=== PATIENT | male | born 1945 | race Caucasian/White ===

== ENCOUNTER 2017-07-18 17:33 | Emergency (ER) | payer MEDICARE, OTHER ==
[~2017-07-18] VITALS: Ht 175.3 cm; Wt 115.7 kg
--- OUTSIDE RECORDS SUMMARY | ~2017-07-18 | XMS | Encounter Summary ---
Demographics + + + | Address | [address] | | | [place] [address] | + + + | Home Phone | | + + + | Preferred Language | Unknown | + + + | Marital Status | | + + + | Alevism Affiliation | Unknown | + + + | Race | Unknown | + + + | Ethnic Group | Unknown | + + + Author + + + | Author | [facility] | | | and [place] | + + + | Organization | [facility] | | | and [place] | + + + | Address | Unknown | + + + | Phone | Unavailable | + + + Support + + +---------+ + | Name | Relationship | Address | Phone | + + +---------+ + | Donnell Taylor ECON | Unknown | | + + +---------+ + Care Team Providers + +------+ + | Care Axle Bearing Polisher Name | Role | Phone | + +------+ + PCP | Unavailable | + +------+ + Encounter Details +--------+ + + + + | Date | Type | Department | Care Team | Description | +--------+ + + + + | 04/23/ | Orders Only | [facility] | Osvaldo Jon, | Displacement of | | 2017 | | NEUROSURGERY [address] | DO [address] | lumbar | | | | [address] | [address] [place], | intervertebral disc | | | | [place] | [place] [address] | without myelopathy | | | | [address] | [phone] | (Primary Dx); Other | | | | [phone] | | idiopathic | | | | | | scoliosis, lumbar | | | | | | region; Lumbar | | | | | | spondylosis; | | | | | | Neurogenic | | | | | | claudication; Lumbar | | | | | | radiculopathy; | | | | | | Acute back pain with | | | | | | sciatica, left; | | | | | | Left leg weakness | +--------+ + + + + Social History + + + +--------+ + | Tobacco Use | Types | Packs/Day | Years | Date | | | | | Used | | + + + +--------+ + | Former Smoker | Cigarettes, Pipe | 1 | 25 | Quit: 03/31/1995 | + + + +--------+ + + +---+---+---+ | Smokeless Tobacco: | | | | | Never Used | | | | + +---+---+---+ + + +---------+ + | Alcohol Use | Drinks/We | oz/Week | Comments | | | ek | | | + + +---------+ + | Yes | | | Social | + + +---------+ + + + + | Sex Assigned at | Date Recorded | | | | + + + | Not on file | | + + + as of this encounter Plan of Treatment +--------+---------+ + + + | Date | Type | Specialty | Care Team | Description | +--------+---------+ + + + | 09/17/ | Office | Neurosurgery | Osvaldo Jon, | | | 2017 | Visit | | DO [address] | | | | | | [address] [place], | | | | | | [place] [address] | | | | | | [phone] | | | | | | | | +--------+---------+ + + + as of this encounter Visit Diagnoses + + | Diagnosis | + + | Displacement of lumbar intervertebral disc without myelopathy - Primary | + + | Other idiopathic scoliosis, lumbar region | + + | Lumbar spondylosis | + + | Lumbosacral spondylosis without myelopathy | + + | Neurogenic claudication | + + | Spinal stenosis, lumbar region, with neurogenic claudication | + + | Lumbar radiculopathy | + + | Thoracic or lumbosacral neuritis or radiculitis, unspecified | + + | Acute back pain with sciatica, left | + + | Left leg weakness | + + | Other musculoskeletal symptoms referable to limbs | + +"
--- OUTSIDE RECORDS SUMMARY | ~2017-07-18 | XMS | Encounter Summary ---
Demographics + + + | Address | [address] | | | [place] [address] | + + + | Home Phone | | + + + | Preferred Language | Unknown | + + + | Marital Status | | + + + | Baptism Affiliation | Unknown | + + + | Race | Unknown | + + + | Ethnic Group | Unknown | + + + Author + + + | Author | [facility] | | | and [place] | + + + | Organization | [facility] | | | and [place] | [...] Team Providers + +------+ + | Care State Superintendent Of Schools Name | Role | Phone | + +------+ + PCP | Unavailable | + +------+ + Encounter Details +--------+ + + + + | Date | Type | Department | Care Team | Description | +--------+ + + + + | 05/01/ | Episode | [facility] [place] | Anya Muro, | | | 2018 | Changes | NEUROSURGERY [address] | Cert NAT | | | | | [address] | | | | | | [place] | | | | | | [address] | | | | | | [phone] | | | +--------+ + + + + Social [...] | | | | [address] [place], | | | | | | [place] [address] | | | | | | [phone] | | | | | | | | +--------+---------+ + + + as of this encounter Visit Diagnoses Not on filein this encounter"
--- OUTSIDE RECORDS SUMMARY | ~2017-07-18 | XMS | Encounter Summary ---
Demographics + + + | Address | [address] | | | [place] [address] | + + + | Home Phone | | + + + | Preferred Language | Unknown | + + + | Marital Status | | + + + | Latter Day Affiliation | Unknown | + + + | Race | Unknown | + + + | Ethnic Group | Unknown | + + + Author + + + | Author | [facility] | | | and [place] | + + + | Organization | [facility] | | | and [place] [...] Team Providers + +------+ + | Care Health Center Assistant Name | Role | Phone | + +------+ + | Austin Handy DO | PCP | | + +------+ + Reason for Visit Auth/Cert +--------+--------+ + + + + | Status | Reason | Specialty | Diagnoses / | Referred By | Referred To | | | | | Procedures | Contact | Contact | +--------+--------+ + + + + | | | | Diagnoses | | | | | | | | | | | | | | Displacement | | | | | | | of lumbar | | | | | | | intervertebr | | | | | | | al disc | | | | | | | without | | | | | | | myelopathy | | | | | | | (M51.26), | | | | | | | Other | | | | | | | idiopathic | | | | | | | scoliosis, | | | | | | | lumbar | | | | | | | region | | | | | | | (M41.26), | | | | | | | Lumbar | | | | | | | spondylosis | | | | | | | (M47.816), | | | | | | | Neurogenic | | | | | | | claudication | | | | | | | (M48.062), | | | | | | | Lumbar | | | | | | | radiculopath | | | | | | | y (M54.16), | | | | | | | Acute back | | | | | | | pain with | | | | | | | sciatica, | | | | | | | left | | | | | | | (M54.42), | | | | | | | Left leg | | | | | | | weakness | | | | | | | (R29.898) | | | | | | | Procedures | | | | | | | MS | | | | | | | ARTHRODESIS | | | | | | | POSTERIOR/PO | | | | | | | STEROLATERAL | | | | | | | LUMBAR MS | | | | | | | LUMBAR SPINE | | | | | | | | | | | | | | FUSION,ANTER | | | | | | | APPRCH MS | | | | | | | INSJ BIOMCHN | | | | | | | DEV | | | | | | | INTERVERTEBR | | | | | | | AL DSC SPC | | | | | | | W/ARTHRD | | | | | | | POSTERIOR | | | | | | | NON-SEGMENTA | | | | | | | L | | | | | | | INSTRUMENTAT | | | | | | | ION MS | | | | | | | STEREOTACTIC | | | | | | | COMP ASSIST | | | | | | | PROC,SPINAL | | | | | | | L2-3 LAIF | | | +--------+--------+ + + + + Encounter Details +--------+ + + + + | Date | Type | Department | Care Team | Description | +--------+ + + + + | 06/11/ | Anesthesia | [facility] | Lashawn, | | | 2018 | Event | MED CTR [facility] | Ad Mac MD | | | | | [address] | [address] | | | | | [place] | [place] | | | | | [address] | [id number] | | | | | [phone] | | | +--------+ + + + + Anesthesia Record + + + + + | Procedure Name | Responsible | Anesthesia Start | Anesthesia Stop Time | | | Anesthesiologist | Time | | + + + + + | L2-3 JARROD (Right | Joseluisalex L | 06/11/17 1211 | 06/11/17 1500 | | Back) | MD Lashawn | | | + + + + + +----+---+ + + | Da | T | Event | Comment | | te | i | | | | | m | | | | | e | | | +----+---+ + + | 03 | 1 | An Checkout | Pre-use anesthesia machine/equipment checkout. | | /1 | 2 | | | | 4/ | 1 | | | | 20 | 0 | | | | 18 | | | | +----+---+ + + | | 1 | An Start | Reassessment prior to anesthesia induction/procedure. | | | 2 | | | | | 1 | | | | | 1 | | | +----+---+ + + | | 1 | Preoxygenat | | | | 2 | ed | | | | 1 | | | | | 4 | | | +----+---+ + + | | 1 | An | | | | 2 | Induction | | | | 1 | | | | | 6 | | | +----+---+ + + | | 1 | An | | | | 2 | Intubation | | | | 1 | | | | | 7 | | | +----+---+ + + | | 1 | AN Bite | | | | 2 | Block | | | | 2 | | | | | 1 | | | +----+---+ + + | | 1 | Antibiotic | | | | 2 | Given | | | | 2 | | | | | 6 | | | +----+---+ + + | | 1 | First | | | | 2 | Inc/Proc St | | | | 3 | | | | | 7 | | | +----+---+ + + | | 1 | Quick Note | Extensive time working on increasing patient sats. Recruitment | | | 4 | | breaths given, good strength | | | 4 | | | | | 0 | | | +----+---+ + + | | 1 | An Stop | Patient handed off to recovery nurse. | | | 0 | | | | | 0 | | | +----+---+ + + +------+ | Meds | +------+ + + + | Name | Total | + + + | fentaNYL | 100 mcg | + + + | lidocaine 2% (PF) | 40 mg | + + + | propofol | 300 mg | + + + | propofol | 498.56 mg | + + + | succinylcholine | 120 mg | + + + | rocuronium | 20 mg | + + + | ketamine | 150 mg | + + + | phenylephrine (Injection) | 100 mcg | + + + | ePHEDrine | 25 mg | + + + | dexamethasone | 10 mg | + + + | ondansetron | 4 mg | + + + | dexmedetomidine (Bolus) | 25 mcg | + + + | HYDROmorphone | 1.4 mg | + + + | magnesium sulfate | 2 g | + + + | lidocaine 1% | 20 mL | + + + | glycopyrrolate (ROBINUL) | 0.8 mg | | injection (5 mL vial) | | + + + | neostigmine | 3 mg | + + + | sodium chloride 0.9% (NS) | 1,000 mL | | infusion | | + + + | LR (Infusion) | 400 mL | + + + + + | Name | + + | N2O Flow Rate (L/Min) | + + | O2 Flow Rate (L/Min) | + + | Insp O2 | + + | Exp SEV | + + | Air Flow Rate (L/Min) | + + + + | No blood administrations on file. | + + +--------+ + + + | Type | Details | Placement | Removal | +--------+ + + + | Periph | 06/11/17; 1057; Left; Distal; | 06/11/17 1057 by | 06/13/17 1104 by | | eral | Forearm; mxnm-cur-iyyckz catheter | Krystal Brandt RN | Rafaela Regan RN | | IV | system; 18 gauge; Blood Bank; | | | | | distraction, intradermal | | | | | injection; short term use; | | | | | 06/13/17; 1104 | | | +--------+ + + + | Airway | Placement Date: 06/11/17; | 06/11/17 1215 by | 06/11/17 1440 by | | | Placement Time: 1215 (created via | Ad Mac | Gayle Zavala RN | | | procedure documentation); Mask | MD Lashawn | | | | Ventilation: EZ; Airway Grade: 1; | | | | | Successful Technique: video | | | | | scope; Laryngoscope Blade Size: | | | | | 3; Attempts: 1; Airway Type: | | | | | endotracheal; Size: 7.5; Trauma: | | | | | none; Other Equipment: stylette; | | | | | Placement Check: bilateral chest | | | | | rise, breath sounds equal | | | | | bilaterally; Removal Date: | | | | | 06/11/17; Removal Time: 1440 | | | | | (removed in OR) | | | +--------+ + + + | Drain/ | 06/11/17; 1417; #10; Left; | 06/11/17 1417 by | 06/13/17 1104 by | | Device | posterior (lateral); lumbar | Lisandro Bowman RN | Rafaela Regan RN | | Site | spine; collapsible closed device; | | | | | short term use; 06/13/17; 1104 | | | +--------+ + + + | Incisi | 06/11/17; 1435; Right; back; | 06/11/17 1435 by | 06/13/17 1105 by | | on | healing within expectations; | Lisandro Bowman RN | Rafaela Regan RN | | | 06/13/17; 1105 | | | +--------+ + + + | Incisi | 06/11/17; 1435; Right; flank; | 06/11/17 1435 by | 06/13/17 1105 by | | on | healing within expectations; | Lisandro Bowman RN | Rafaela Regan RN | | | 06/13/17; 1105 | | | +--------+ + + + in this encounter Social History + + + +--------+ + [...] +---------+ + | Yes | | | once every few months | + + +---------+ + + + [...] 09/17/ | Office | Neurosurgery | Osvaldo oJn, | | | 2017 | Visit | | DO [address] | | | | | | [address] [place], | | | | | | [place] [address] | | | | | | [phone] | | | | | | | | +--------+---------+ + + + as of this encounter Results Anesthesia Airway Note (06/11/2017 1253) + + | Narrative | + + | Ad Hradin MD 06/11/2017 12:53 Anesthesia Airway Placement | | 06/11/2017 12:15 Preprocedure check: patient identified, suction, airway equipment | | checked, oxygen, airway assessed and patient reassessment prior to induction Mask | | ventilation: easy Successful technique: videoscope Laryngoscope blade size: 3 | | Airway grade: 1 (Full view of glottis) Other equipment: stylette Attempts: 1 Airway | | type: endotracheal Size: 7.5 Cuffed: cuffed Route, reference point: center of mouth | | Tube secured with: adhesive tape Trauma: none Tube placement verification: bilateral | | chest rise and equal bilateral breath sounds Performing provider: LASHAWN | | AD Mac Electronically Signed by: Ad Hardin, | | ESig date/time: 06/11/2017 | | 12:53 | + + + + | Procedure Note | + + | Ad Hardin MD - 06/11/2017 1253 PDT Anesthesia Airway Placement06/11/2017 | | 12:15Preprocedure check: patient identified, suction, airway equipment checked, oxygen, | | airway assessed and patient reassessment prior to inductionMask ventilation: | | easySuccessful technique: videoscopeLaryngoscope blade size: 3 Airway grade: 1 (Full | | view of glottis)Other equipment: styletteAttempts: 1Airway type: endotrachealSize: | | 7.5Cuffed: cuffedRoute, reference point: center of mouthTube secured with: adhesive | | tapeTrauma: noneTube placement verification: bilateral chest rise and equal bilateral | | breath soundsPerforming provider: AD HARDIN LElectronically Signed by: | | MD Jill Clark date/time: 06/11/2017 12:53 | | | |Airway type: endotracheal | |Size: 7.5 | |Cuffed: cuffed | |Route, reference point: center of mouth | |Tube secured with: adhesive tape | |Trauma: none | |Tube placement verification: bilateral chest rise and equal bilateral breath sounds | |Performing provider: AD HARDIN | | | | | |Electronically Signed by: MD Jill Clark date/t april: 06/11/2017 12:53 | | | + + in this encounter Visit Diagnoses Not on filein this encounter Administered Medications + +--------+ +-------+------+------+ | Medication Order | MAR | Action | Dose | Rate | Site | | | Action | Date | | | | + +--------+ +-------+------+------+ | dexamethasone (PF) 10 mg/mL | Given | | 10 mg | | | | injection Intravenous, PRN, | | 8 12:37 | | | | | Starting 06/11/17 at 1237, | | PDT | | | | | Anesthesia Intra-op | | | | | | + +--------+ +-------+------+------+ +---+---+ | | | +---+---+ + +-------+ +--------+---+---+ | dexmedetomidine (PRECEDEX) in | Given | | 25 mcg | | | | sodium chloride bolus infusion | | 8 12:31 | | | | | Intravenous, PRN, Starting Wed | | PDT | | | | | 06/11/17 at 1231, Anesthesia | | | | | | | Intra-op | | | | | | + +-------+ +--------+---+---+ +---+---+ | | | +---+---+ + +-------+ +-------+---+---+ | ePHEDrine 50 mg/mL injection | Given | | 15 mg | | | | PRN, Starting 06/11/17 at | | 8 12:30 | | | | | 1230, Anesthesia Intra-op | | PDT | | | | + +-------+ +-------+---+---+ +-------+ +-------+---+---+ | Given | | 10 mg | | | | | 8 14:14 | | | | | | PDT | | | | +-------+ +-------+---+---+ +---+---+ | | | +---+---+ + +-------+ +---------+---+---+ | fentaNYL (PF) injection | Given | | 100 mcg | | | | Intravenous, PRN, Pain, Starting | | 8 12:16 | | | | | 06/11/17 at 1216, Anesthesia | | PDT | | | | | Intra-op | | | | | | + +-------+ +---------+---+---+ +---+---+ | | | +---+---+ + +-------+ +--------+---+---+ | glycopyrrolate (IGNACIO) | Given | | 0.2 mg | | | | injection Intravenous, PRN, | | 8 12:30 | | | | | Secretions, Starting 06/11/17 | | PDT | | | | | at 1230, Anesthesia Intra-op | | | | | | + +-------+ +--------+---+---+ +-------+ +--------+---+---+ | Given | | 0.6 mg | | | | | 8 14:30 | | | | | | PDT | | | | +-------+ +--------+---+---+ +---+---+ | | | +---+---+ + +-------+ +------+---+---+ | HYDROmorphone (DILAUDID) 2 | Given | | 1 mg | | | | mg/mL injection PRN, Pain, | | 8 12:19 | | | | | Starting 06/11/17 at 1219, | | PDT | | | | | Anesthesia Intra-op | | | | | | + +-------+ +------+---+---+ +-------+ +--------+---+---+ | Given | | 0.4 mg | | | | | 8 12:39 | | | | | | PDT | | | | +-------+ +--------+---+---+ +---+---+ | | | +---+---+ + +-------+ +-------+---+---+ | ketamine 50 mg/mL injection | Given | | 50 mg | | | | PRN, Starting 06/11/17 at | | 8 12:18 | | | | | 1218, Anesthesia Intra-op | | PDT | | | | + +-------+ +-------+---+---+ +-------+ +-------+---+---+ | Given | | 50 mg | | | | | 8 12:31 | | | | | | PDT | | | | +-------+ +-------+---+---+ | Given | | 50 mg | | | | | 8 12:37 | | | | | | PDT | | | | +-------+ +-------+---+---+ +---+---+ | | | +---+---+ + +---------+ +---+---+---+ | lactated ringers (LR) infusion | New Bag | | | | | | Intravenous, CONTINUOUS PRN, | | 8 13:23 | | | | | Starting 06/11/17 at 1323, | | PDT | | | | | Anesthesia Intra-op | | | | | | + +---------+ +---+---+---+ +---+---+ | | | +---+---+ + +-------+ +--------+---+---+ | lidocaine (PF) 1% injection | Given | | 20 mLs | | | | Intravenous, PRN, Starting Wed | | 8 12:31 | | | | | 06/11/17 at 1231, Anesthesia | | PDT | | | | | Intra-op | | | | | | + +-------+ +--------+---+---+ +---+---+ | | | +---+---+ + +-------+ +-------+---+---+ | lidocaine (PF) 2% injection | Given | | 40 mg | | | | PRN, Starting 06/11/17 at | | 8 12:16 | | | | | 1216, Anesthesia Intra-op | | PDT | | | | + +-------+ +-------+---+---+ +---+---+ | | | +---+---+ + +-------+ +-----+---+---+ | magnesium sulfate 500 mg/mL | Given | | 2 g | | | | injection Intravenous, PRN, | | 8 12:31 | | | | | Starting 3/14/18 at 1231, | | PDT | | | | | Anesthesia Intra-op | | | | | | + +-------+ +-----+---+---+ +---+---+ | | | +---+---+ + +-------+ +------+---+---+ | neostigmine (BLOXIVERZ) 1 mg/mL | Given | | 3 mg | | | | injection Intravenous, PRN, | | 8 14:30 | | | | | Starting 06/11/17 at 1430, | | PDT | | | | | Anesthesia Intra-op | | | | | | + +-------+ +------+---+---+ +---+---+ | | | +---+---+ + +-------+ +------+---+---+ | ondansetron (ZOFRAN) injection | Given | | 4 mg | | | | PRN, Nausea, Vomiting, Starting | | 8 12:37 | | | | | 06/11/17 at 1237, Anesthesia | | PDT | | | | | Intra-op | | | | | | + +-------+ +------+---+---+ +---+---+ | | | +---+---+ + +-------+ +---------+---+---+ | phenylephrine (RACHEAL-SYNEPHRINE) | Given | | 100 mcg | | | | 100 mcg/mL injection | | 8 12:49 | | | | | Intravenous, PRN, Starting Wed | | PDT | | | | | 06/11/17 at 1249, Anesthesia | | | | | | | Intra-op | | | | | | + +-------+ +---------+---+---+ +---+---+ | | | +---+---+ + +-------+ +--------+---+---+ | propofol (DIPRIVAN) injection | Given | | 250 mg | | | | Intravenous, PRN, Starting Wed | | 8 12:16 | | | | | 06/11/17 at 1216, Anesthesia | | PDT | | | | | Intra-op | | | | | | + +-------+ +--------+---+---+ +-------+ +-------+---+---+ | Given | | 50 mg | | | | | 8 12:37 | | | | | | PDT | | | | +-------+ +-------+---+---+ +---+---+ | | | +---+---+ + +---------+ + + +---+ | propofol (DIPRIVAN) injection | New Bag | | 100 | 73 mL/hr | | | Intravenous, CONTINUOUS PRN, | | 8 12:19 | mcg/kg/m | | | | Starting 06/11/17 at 1219, | | PDT | in | | | | Anesthesia Intra-op | | | | | | + +---------+ + + +---+ +---+---+ | | | +---+---+ + +-------+ +-------+---+---+ | rocuronium (ZEMURON) injection | Given | | 20 mg | | | | Intravenous, PRN, Ventilator | | 8 13:00 | | | | | Dyssynchrony, Starting Wed | | PDT | | | | | 06/11/17 at 1300, Anesthesia | | | | | | | Intra-op | | | | | | + +-------+ +-------+---+---+ +---+---+ | | | +---+---+ + +-------+ +--------+---+---+ | succinylcholine (ANECTINE) | Given | | 120 mg | | | | injection Intravenous, PRN, | | 8 12:16 | | | | | Starting 06/11/17 at 1216, | | PDT | | | | | Anesthesia Intra-op | | | | | | + +-------+ +--------+---+---+ +---+---+ | | | +---+---+ in this encounter"
--- OUTSIDE RECORDS SUMMARY | ~2017-07-18 | XMS | Encounter Summary ---
Demographics + + + | Address | [address] | | | [place] [address] | + + + | Home Phone | | + + + | Preferred Language | Unknown | + + + | Marital Status | | + + + | Confucianist Affiliation | Unknown | + + + | Race | Unknown | + + + | Ethnic Group | Unknown | + + + Author + + + | Author | [facility] | | | and [place] | + + + | Organization | [facility] | | | and [place] [...] Team Providers + +------+ + | Care Route Clerk Name | Role | Phone | + +------+ + | Austin Handy DO | PCP | | + +------+ + Encounter Details +--------+ + + + + | Date | Type | Department | Care Team | Description | +--------+ + + + + | 07/16/ | Ancillary | [facility] | Provider, | | | 2018 | Orders | [facility] | MD [address] | | | | | IMAGING | [address] | | | | | [phone] | [place] [address] | | +--------+ + + + + [...] + + + as of this encounter Functional Status + + + + | Functional Status | Response | Date of Assessment | + + + + | Are you deaf or do you have serious | No | 06/13/2017 | | difficulty hearing? | | | + + + + | Are you blind or do you have serious | No | 06/13/2017 | | difficulty seeing, even when wearing | | | | glasses? | | | + + + + | Do you have serious difficulty walking or | No | 06/13/2017 | | climbing stairs? (5 years old or older) | | | + + + + | Do you have difficulty dressing or bathing? | No | 06/13/2017 | | (5 years old or older) | | | + + + + | Because of a physical, mental, or emotional | No | 06/13/2017 | | condition, do you have difficulty doing | | | | errands alone such as visiting a doctor's | | | | office or shopping? [15 years old or | | | | older)] | | | + + + + + + + + | Cognitive Status | Response | Date of Assessment | + + + + | Because of a physical, mental, or emotional | No | 06/13/2017 | | condition, do you have serious difficulty | | | | concentrating, remembering, or making | | | | decisions? (5 years old or older) | | | + + + + as of this encounter Plan of Treatment +--------+---------+ + + + | Date | Type | Specialty | Care Team | Description | +--------+---------+ + + + | 09/17/ | Office | Neurosurgery | Osvaldo Jon, | | | 2018 | Visit | | DO [address] | | | | | | [address] [place], | | | | | | [place] [address] | | | | | | [phone] | | | | | | | | +--------+---------+ + + + as of this encounter Results XR Lumbar Spine 2 or 3 Vw (07/08/2017 8057) + + + | Specimen | Performing Laboratory | + + + | | [facility] | + + + + + | Narrative | + + | External films for comparison only No results will be in the chart. | + + in this encounter Visit Diagnoses Not on filein this encounter"
--- OUTSIDE RECORDS SUMMARY | ~2017-07-18 | XMS | Encounter Summary ---
Demographics + + + | Address | [address] | | | [place] [address] | + + + | Home Phone | | + + + | Preferred Language | Unknown | + + + | Marital Status | | + + + | Restorationism Affiliation | Unknown | + + + | Race | Unknown | + + + | Ethnic Group | Unknown | + + + Author + + + | Author | [facility] | | | and [place] | + + + | Organization | [facility] | | | and [...] Team Providers + +------+ + | Care Religious Assistant Name | Role | Phone | + +------+ + PCP | Unavailable | + +------+ + Reason for Visit + + + | Reason | Comments | + + + | Back Pain | | + + + Evaluate & Treat (Routine) +--------+--------+ + + + + | Status | Reason | Specialty | Diagnoses / | Referred By | Referred To | | | | | Procedures | Contact | Contact | +--------+--------+ + + + + | Closed | | Neurosurgery | Diagnoses | Ole, | [place], | | | | | Other | Austin Chaparro MD | Osvaldo Villar, DO | | | | | intervertebr | [address] | [address] | | | | | al disc | [place] | [address] | | | | | displacement | [address] | [place], | | | | | , lumbar | [address] | [place] [address] | | | | | region | [place], [place] | Phone: | | | | | | [address] | [phone] | | | | | | Phone: | Fax: | | | | | | [phone] | [phone] | +--------+--------+ + + + + Encounter Details +--------+---------+ + + + | Date | Type | Department | Care Team | Description | +--------+---------+ + + + | 04/22/ | Office | [facility] [place] [facility] [place] | Osvaldo Jon, | Lumbar disc | | 2018 | Visit | NEUROSURGERY [address] | DO [address] | herniation (Primary | | | | [address] | [address] [place], | Dx); Other | | | | [place], [place] | [place] [address] | idiopathic | | | | [address] | [phone] | scoliosis, lumbar | | | | [phone] | | region; Lumbar | | | | | | spondylosis; Spinal | | | | | | stenosis of lumbar | | | | | | region with | | | | | | neurogenic | | | | | | claudication; Lumbar | | | | | | radiculopathy; | | | | | | Chronic midline low | | | | | | back pain with | | | | | | left-sided sciatica; | | | | | | Left leg weakness | +--------+---------+ + + + Social History + + [...] + + + as of this encounter Last Filed Vital Signs + + + + | Vital Sign | Reading | Time Taken | + + + + | Blood Pressure | 120/78 | 04/22/2017922 PST | + + + + | Pulse | 68 | 04/22/2017922 PST | + + + + | Temperature | - | - | + + + + | Respiratory Rate | - | - | + + + + | Oxygen Saturation | - | - | + + + + | Inhaled Oxygen | - | - | | Concentration | | | + + + + | Weight | 115.7 kg (255 lb) | 04/22/2017922 PST | + + + + | Height | 175.3 cm (5' 9") | 04/22/2017922 PST | + + + + | Body Mass Index | 37.66 | 04/22/2017922 PST | + + + + in this encounter Instructions Patient Instructions - Osvaldo Jon DO - 04/22/2017929 PSTPlease follow-up with your primary care physician for preoperative clearance. Please present for surgery when scheduled. in this encounter Progress Notes Osvaldo Jon DO - 04/22/2017929 PSTFormatting of this note may be different from the original. Osvaldo Jon DO [address] [facility] [place] [address] FAX: NEUROSURGERY HISTORY AND PHYSICAL EXAMINATION CHIEF COMPLAINT: Chief Complaint Patient presents with Back Pain HISTORY OF PRESENT ILLNESS: The patient is a 71 y.o. male with the complaint of back sympt oms that began many years ago. He previously underwent a lumbar laminectomy [address] Aguir[address] in [place] and 30 years ago by someone in [place], [place]. The patient descr ibes waking up in December 2016 with new, severe left leg symptoms. The symptoms have been u nchanged. He rates the back pain as moderate. The symptoms are intermittent. He describes the pain as aching and stabbing. The patient describes leg symptoms that occur on left side. The leg symptoms account for g reater than or equal to 90% of his symptoms. The leg symptoms are constant and the symptoms travels from the back around the front of his leg into his groin and medial thigh. The pat evaristo also describes shooting pain, numbness, and weakness. He used to be able to walk as far as he wanted, not he can only walk 200 yards before having to sit. He has to use his arms t o lift his leg into the car currently. This is frustrating for him as he used to be very act katelyn. The patient does not report any change in bowel or bladder function recently. His symptoms improve with nothing. His symptoms worsen with standing, walking, running, kneeling, bending, twisting, stairs an d light exertion. He has tried lifestyle modification, pain medication, rest, heat/ice, chiropractics, TENS, steroid injections. PAST MEDICAL HISTORY: Past Medical History: Diagnosis Date Abnormal weight gain Actinic keratosis 09/16/2011 Right Acute epididymitis Left Acute upper respiratory infection 05/28/2012 Anterior knee pain, right Anxiety Basal cell carcinoma of left confucianist region 09/16/2011 Benign neoplasm of skin 03/18/2012 Bilateral hearing loss Breast lump 11/23/2010 Right Bursitis of right knee Cataract Cough 05/28/2012 Degenerative joint disease of hand 10/15/2011 Dermatophytosis 03/05/2011 Displacement of lumbar intervertebral disc without myelopathy Elevated blood pressure reading Fatigue Gastroesophageal reflux disease Hand pain 09/16/2011 Hyperlipidemia 11/23/2010 Hypertensive disorder Impotence Infection of toe Bilateral Ingrown toenail Bilateral Insomnia 11/23/2010 Kidney stone on left side Knee pain 05/28/2012 Lichen sclerosus Lipoma of skin and subcutaneous tissue 12/05/2010 Local infection of wound Left Low back pain 11/23/2010 Lumbar radiculopathy Mass of knee joint 05/28/2012 Neoplasm of uncertain behavior of skin of face Open wound of upper limb Osteoarthritis 11/23/2010 Other intervertebral disc displacement, lumbar region Pain in toe Bilateral Pain in wrist 09/16/2011 Pain of left hip joint Persistent insomnia Psoriasis 11/25/2011 Stress Urethritis 12/15/2012 Urinary tract infectious disease 11/17/2012 Vertical vertigo Vesicular eczema of hands and feet 06/04/2011 PAST SURGICAL HISTORY: Past Surgical History: Procedure Laterality Date APPENDECTOMY 03/31/1959 Dr. Dylan Brown; [facility] [place] HAND SURGERY 03/25/1996 Dr. Ludwig, [facility] SPINE SURGERY 1997 SPINE SURGERY 1991 CURRENT MEDICATIONS: Current Outpatient Prescriptions Medication Sig Dispense Refill Ascorbic Acid (VITAMIN C) 1000 MG tablet Take 1,000 mg by mouth Daily. cyanocobalamin (VITAMIN B-12) 1000 MCG tablet Take 1,000 mcg by mouth Daily. ergocalciferol (VITAMIN D-2) 50,000 units capsule Take 50,000 Units by mouth Once a wee k. finasteride (PROSCAR) 5 mg tablet Take 5 mg by mouth Daily. Flaxseed, Linseed, (FLAXSEED OIL PO) Take by mouth. melatonin 5 mg tablet Take 5 mg by mouth nightly as needed for Insomnia. Multiple Vitamins-Minerals (CENTRUM SILVER PO) Take 1 tablet by mouth Daily. [place]-3 Fatty Acids (FISH OIL) 1200 MG CAPS Take 2,400 mg by mouth Daily. omeprazole (PRILOSEC) 20 mg TBEC Take 20-40 mg by mouth every morning (before breakfast ). piroxicam (FELDENE) 20 MG capsule Take 20 mg by mouth Daily. simvastatin (ZOCOR) 20 mg tablet Take 20 mg by mouth nightly. tamsulosin (FLOMAX) 0.4 mg CAPS Take 0.4 mg by mouth Daily. No current facility-administered medications for this visit. ALLERGIES: Allergies Allergen Reactions Cefazolin Nausea And Vomiting SOCIAL HISTORY: The patient reports that he quit smoking about 22 years ago. His smoking use included Ciga rettes and Pipe. He has a 25.00 pack-year smoking history. He has never used smokeless [employer] co. He reports that he drinks alcohol. He reports that he does not use drugs. FAMILY HISTORY: Family History Problem Relation Age of Onset Cancer Mother Pancreatic Lung cancer Mother Arthritis Mother Hypertension Father Heart attack Father Heart disease Father Diabetes Sister Heart disease Paternal Grandfather Heart attack Paternal Grandfather Cancer Maternal Aunt Bleeding problems Maternal Grandmother Blood Clot Heart attack Maternal Grandfather Kidney disease Paternal Grandmother Heart attack Paternal Aunt Heart attack Maternal Uncle REVIEW OF SYSTEMS GENERALLY: No fever, no night sweats, no anemia, no fatigue, no recent profound weight ch anges. EYES: No eye problems, + use of corrective lenses, no eye injury, no double vision, no bli ndness. EARS, NOSE, AND THROAT: No changes in taste or smell, + hearing difficulty, + ringing in t he ears, no ear drainage, no dizziness, no voice changes, no difficulty swallowing, + signif icant snoring, no sleep apnea, no sinus problems, no major dental work. NEUROLOGICALLY: Please see the review of systems discussed above in the history of present illness. In addition, the patient has numbness and pain of legs, back injury, pain in neck and back, memory loss. PSYCHIATRIC: No depression, + sleep disorders, no anxiety, no bipolar disorder, no psychot ic episodes. CARDIOVASCULAR: No heart attacks, no heart murmur, no heart fluttering, no chest pain, no ankle swelling. LUNG DISEASE: No shortness of breath, no cough, no tuberculosis, no bloody cough, no asth ma, no emphysema/COPD. GASTROINTESTINAL: No bowel disease, no nausea or vomiting, no rectal bleeding, no constipa tion, no stool incontinence, no liver disease, no gallbladder disease, no abdominal pain, no ulcers. KIDNEY DISEASE: + urinary frequency, no painful or difficult urination, no incontinence. ENDOCRINE: No diabetes, no thyroid disease, no osteopenia or osteoporosis, no breast drain age. SKIN: No breast lumps, no skin changes, no rashes, no itches. HEMATOLOGIC/LYMPHATIC: No enlarged lymph nodes, no easy or unusual bleeding, no personal h istory of cancer. RHEUMATOLOGIC: + joint arthritis, no rheumatoid arthritis. PHYSICAL EXAMINATION: Blood pressure 120/78, pulse 68, height 1.753 m (5' 9"), weight 115.7 kg (255 lb). Body mas s index is 37.66 kg/m. GENERAL: Red Taylor is in no acute distress with unlabored respirations. The patient do es appear uncomfortable throughout the exam today. HEENT: HEAD/FACE: EYES: EARS: NASOPHARNYX: OROPHARNYX: Normocephalic and atraumatic. There are no areas of recent trauma. Normal sclerae without icterus. No drainage or tenderness. Clear without drainage. Clear without erythema. NECK (ANTERIOR): Supple and without palpable masses. CHEST: Clear to ausculation without crackles or wheeze. HEART: Regular rate and rhythm without murmurs. ABDOMEN: Soft, non-tender, non-distended, and without palpable masses. The patient is obese . SPINE: There is no tenderness in the midline of the cervical or thoracic spine. There is n o major palpable deformity of the spine. The lumbar spine shows there is tenderness in the midline of the L2, L3 levels. To palpati on, there is signficant bilateral myofascial tenderness. EXTREMITIES: No cyanosis, clubbing, or edema. Distal pulses are palpable. NEUROLOGICAL EXAM: MENTAL STATUS: The patient is awake, alert, and oriented. He follows simple and complex commands. His speech is fluent, he comprehends speech well, and he repeats well. He has no apparent deficits with short or longterm memory. CRANIAL NERVES: II: Acuity is intact. Hunt are full to confrontation. III, IV, : The pupils are reactive. Extraocular movements are intact. No ptosis is note d. V: Facial sensation is intact and symmetric. VII: Facial movements are symmetric. VIII: Hearing is intact bilaterally. IX, X: The uvula and palate move appropriately. XI: Shrug is equal bilaterally. XII: Tongue protrusion is midline. MOTOR EXAM: (5 IS NORMAL) * Indicates pain limited MUSCLE/ MOVEMENT: RIGHT LEFT Deltoids 5 5 Biceps 5 5 Triceps 5 5 Wrist Flexion 5 5 Wrist Extension 5 5 Median Intrinsics 5 5 Ulnar Intrinsics 5 5 Bench Technician Strength 5 5 Hip Flexion 5 4- Hip Extension 5 4 Knee Flexion 5 4 Knee Extension 5 4 Dorsiflexion 5 4+ Extensor Hallicus Longus 5 4+ Plantarflexion 5 4+ SENSORY EXAM: Sensory exam shows left L3-type dysesthesia. REFLEXES: (2 OR 2+ IS NORMAL) REFLEX: RIGHT LEFT BICEPS 2+ 2+ BRACHIORADIALIS 2+ 2+ TRICEPS 2+ 2+ PATELLAR 2+ 2+ ACHILLES 2+ 2+ MERIDA'S ABSENT ABSENT PLANTAR DOWNGOING DOWNGOING GAIT: Gait is antalgic. He is unable to toe or heel walk. PERIPHERAL NERVE/MISC: Tinel is negative at the wrists and elbows bilaterally. Phalen is negative. Straight leg raise is positive on the left. Phillip's test of the hips is negative bilaterally. RADIOGRAPHIC REVIEW: The patient's imaging was reviewed in detail with the patient today during the visit. The MRI of the lumbar spine from 01/31/17 demonstrates diffuse spondylosis. There is spondylolist hesis L4-5. There is a large disc herniation at L2-3 eccentric to the left that cases severe central and left lateral recess stenosis. Lumbar flexion and extension views show spondylolisthesis L4-5. ASSESSMENT: NEUROSURGICAL DIAGNOSES: Encounter Diagnoses Name Primary? Lumbar disc herniation Yes Other idiopathic scoliosis, lumbar region Lumbar spondylosis Spinal stenosis of lumbar region with neurogenic claudication Lumbar radiculopathy Chronic midline low back pain with left-sided sciatica Left leg weakness GENERAL DIAGNOSES: Past Medical History: Diagnosis Date Abnormal weight gain Actinic keratosis 09/16/2011 Right Acute epididymitis Left Acute upper respiratory infection 05/28/2012 Anterior knee pain, right Anxiety Basal cell carcinoma of left confucianist region 09/16/2011 Benign neoplasm of skin 03/18/2012 Bilateral hearing loss Breast lump 11/23/2010 Right Bursitis of right knee Cataract Cough 05/28/2012 Degenerative joint disease of hand 10/15/2011 Dermatophytosis 03/05/2011 Displacement of lumbar intervertebral disc without myelopathy Elevated blood pressure reading Fatigue Gastroesophageal reflux disease Hand pain 09/16/2011 Hyperlipidemia 11/23/2010 Hypertensive disorder Impotence Infection of toe Bilateral Ingrown toenail Bilateral Insomnia 11/23/2010 Kidney stone on left side Knee pain 05/28/2012 Lichen sclerosus Lipoma of skin and subcutaneous tissue 12/05/2010 Local infection of wound Left Low back pain 11/23/2010 Lumbar radiculopathy Mass of knee joint 05/28/2012 Neoplasm of uncertain behavior of skin of face Open wound of upper limb Osteoarthritis 11/23/2010 Other intervertebral disc displacement, lumbar region Pain in toe Bilateral Pain in wrist 09/16/2011 Pain of left hip joint Persistent insomnia Psoriasis 11/25/2011 Stress Urethritis 12/15/2012 Urinary tract infectious disease 11/17/2012 Vertical vertigo Vesicular eczema of hands and feet 06/04/2011 PLAN: Red Taylor presented today, and it was a pleasure seeing this patient and assessing his problems. The patient has diffuse spondylosis, but also a large disc herniation at L2-3 wit h resulting severe stenosis. This is likely contributing to his back pain, left leg pain and weakness, and claudication. I had a lengthy discussion with the patient about his options for care including surgical a nd non-surgical options. He would like to proceed with LAIF L2-3. Given the severity of his symptoms, I will obtain urgent authorization. We discussed the risks, alternatives, and benefits to surgical intervention with Mr. Ave boyd in clinic. These risks included but were not limited to , stroke, heart attack, numb ness, weakness, paralysis, failure of fusion, failure of hardware, subsidence, adjacent segm ent degeneration, cerebrospinal fluid leak, bleeding, infection, injury to surrounding tissu es and organs, injury from positioning, injury to the nerves, difficulty with breathing, dif ficulty with swallowing, difficulty with voice change, and need for additional surgery. Surgical options were discussed and the technique to be employed was described in detail to him. All his questions were answered. We discussed that the goal of the surgery is to prevent progression of his disease, but it is not considered a cure. We also discussed that although some patients may obtain 100% sym ptom relief, it is realistic to anticipate that some symptoms will continue postoperatively despite a successful surgery. We also discussed that there is no guarantee that surgery will provide improvement in his c ondition, and indeed may even worsen the symptoms. We also discussed that in the course of the procedure the operative plan may be altered to include more, less, or different levels d epending upon findings in order to provide him with the best possible outcome. I am prescribing a brace before surgery to improve his stability now to support his weak mu scles and to reduce pain by restricting mobility. He will follow-up with his primary care provider for preoperative clearance and optimizatio n prior to presenting for surgery. ELECTRONICALLY SIGNED BY: Osvaldo Jon DO, 04/22/2017 10:03 in this encounter Plan of Treatment +--------+---------+ + + + | Date | Type | Specialty | Care Team | Description | +--------+---------+ + + + | 09/17/ | Office | Neurosurgery | Osvaldo Jon, | | | 2018 | Visit | | DO [address] | | | | | | [address] [place], | | | | | | [place] [address] | | | | | | [phone] | | | | | | | | +--------+---------+ + + + as of this encounter Visit Diagnoses + + | Diagnosis | + + | Lumbar disc herniation - Primary | + + | Displacement of lumbar intervertebral disc without myelopathy | + + | Other idiopathic scoliosis, lumbar region | + + | Lumbar spondylosis | + + | Lumbosacral spondylosis without myelopathy | + + | Spinal stenosis of lumbar region with neurogenic claudication | + + | Spinal stenosis, lumbar region, with neurogenic claudication | + + | Lumbar radiculopathy | + + | Thoracic or lumbosacral neuritis or radiculitis, unspecified | + + | Chronic midline low back pain with left-sided sciatica | + + | Left leg weakness | + + | Other musculoskeletal symptoms referable to limbs | + +
--- OUTSIDE RECORDS SUMMARY | ~2017-07-18 | XMS | Encounter Summary ---
Demographics + + + | Address | [address] | | | [place] [address] | + + + | Home Phone | | + + + | Preferred Language | Unknown | + + + | Marital Status | | + + + | Roman Catholic Affiliation | Unknown | + + + | Race | Unknown | + + + | Ethnic Group | Unknown | + + + Author + + + | Author | [facility] | | | and [place] | + + + | Organization | [facility] | | | and [place] [...] Team Providers + +------+ + | Care Loop Sewer Name | Role | Phone | + +------+ + | Austin Handy DO | PCP | | + +------+ + Reason for Visit + + + | Reason | Comments | + + + | Medication Question | | + + + Encounter Details +--------+ + + + + | Date | Type | Department | Care Team | Description | +--------+ + + + + | 06/26/ | Telephone | [facility] [place] | Osvaldo Jon, | Medication Question | | 2017 | | NEUROSURGERY [address] | DO [address] | | | | | [address] | [address] [place], | | | | | [place], [place] | [place] [address] | | | | | [address] | [phone] | | | | | [phone] | | | +--------+ + + + [...] | Visit | | DO [address] | | | | | | [address] [place], | | | | | | [place] [address] | | | | | | [phone] | | | | | | | | +--------+---------+ + + + as of this encounter Visit Diagnoses Not on filein this encounter"
--- OUTSIDE RECORDS SUMMARY | ~2017-07-18 | XMS | Encounter Summary ---
Demographics + + + | Address | [address] | | | [place] [address] | + + + | Home Phone | | + + + | Preferred Language | Unknown | + + + | Marital Status | | + + + | Methodist Affiliation | Unknown | + + + | Race | Unknown | + + + | Ethnic Group | Unknown | + + + Author + + + | Author | [facility] | | | and [place] | + + + | Organization | [facility] | | | and [place] [...] Team Providers + +------+ + | Care Engraver Set Up Operator Name | Role | Phone | + +------+ + PCP | Unavailable | + +------+ + Encounter Details +--------+ + + + + | Date | Type | Department | Care Team | Description | +--------+ + + + + | 04/23/ | Episode | [facility] [place] | Anya Muro, | | | 2017 | Changes | NEUROSURGERY [address] | Cert NAT | | | | | [address] | | | | | | [place] | | | | | | [address] | | | | | | [phone] | | | +--------+ + + + [...] | | | | | | [place] [address] | | | | | | [phone] | | | | | | | | +--------+---------+ + + + as of this encounter Visit Diagnoses Not on filein this encounter"
--- OUTSIDE RECORDS SUMMARY | ~2017-07-18 | XMS | Encounter Summary ---
Demographics + + + | Address | [address] | | | [place] [address] | + + + | Home Phone | | + + + | Preferred Language | Unknown | + + + | Marital Status | | + + + | Buddhist Affiliation | Unknown | + + + | Race | Unknown | + + + | Ethnic Group | Unknown | + + + Author + + + | Author | [facility] | | | and [place] | + + + | Organization | [facility] | | | and [place] [...] Team Providers + +------+ + | Care Asset Management Coordinator Name | Role | Phone | + [...] | , lumbar | [address] | [place] [address] | | | | | region | [place], [place] | Phone: | | | | | | [address] | [phone] | | | | | | Phone: | Fax: | | | | | | [phone] | [phone] | +--------+--------+ + + + + Encounter Details +--------+---------+ + + + | Date | Type | Department | Care Team | Description | +--------+---------+ + + + | 04/22/ | Office | [facility] [place] | Osvaldo Jon, | Lumbar disc | | 2018 | Visit | NEUROSURGERY [address] | DO [address] | herniation (Primary | | | | [address] | [address] [place], | Dx); Other | | | | [place], [place] | [place] [address] | idiopathic | | | | [address] | [phone] | scoliosis, lumbar | | | | [phone] | | region; Lumbar | | | [...] from the original. Osvaldo Jon DO [address] [facility] [place] [place] [address] FAX: NEUROSURGERY HISTORY AND PHYSICAL EXAMINATION CHIEF COMPLAINT: Chief Complaint Patient presents with Back Pain HISTORY OF PRESENT ILLNESS: The patient is a 71 y.o. male with the complaint of back sympt oms that began many years ago. He previously underwent a lumbar laminectomy [address] Aguir[address] in [place] and 30 years ago by someone in [place], [place]. The patient descr ibes waking up [...] right Anxiety Basal cell carcinoma of left rastafari region 09/16/2011 Benign neoplasm of skin 03/18/2012 [...] Date APPENDECTOMY 03/31/1959 Dr. Dylan Brown; [facility]. HAND SURGERY 03/25/1996 Dr. Ludwig, [facility]. SPINE SURGERY 1997 SPINE SURGERY 1991 CURRENT [...] PO) Take 1 tablet by mouth Daily. [place]-3 Fatty Acids (FISH OIL) 1200 MG CAPS [...] smoking history. He has never used smokeless [employer]. He reports that he drinks alcohol. [...] has no apparent deficits with short or [facility] memory. CRANIAL NERVES: II: Acuity is intact. [...] Intrinsics 5 5 Ulnar Intrinsics 5 5 Bakery Clerk Strength 5 5 Hip Flexion 5 4- [...] right Anxiety Basal cell carcinoma of left rastafari region 09/16/2011 Benign neoplasm of skin 03/18/2012 [...] ST | | | | | | [address] [place], | | | | | | [place] [address] | | | | | | [phone] | | | | | | | [...]
--- OUTSIDE RECORDS SUMMARY | ~2017-07-18 | XMS | Clinical Summary ---
Demographics + + + | Address | [address] | | | [place] [address] | + + + | Home Phone | | + + + | Preferred Language | Unknown | + + + | Marital Status | | + + + | Catholic Affiliation | Unknown | + + + | Race | Unknown | + + + | Ethnic Group | Unknown | + + + Author + + + | Author | [facility] | | | and [place] | + + + | Organization | [facility] | | | and [place] | + + + | Address | Unknown | + + + | Phone | Unavailable | + + + Support + + +---------+ + | Name | Relationship | Address | Phone | + + +---------+ + | Donnell Arzola ECON | Unknown | | + + +---------+ + Care Team Providers + +------+ + | Care Hotbed Operator Name | Role | Phone | + +------+ + | Austin Handy DO | PP | | + +------+ + Allergies + + + + + + | Active Allergy | Reactions | Severity | Noted | Comments | | | | | Date | | + + + + + + | Cefazolin | Nausea And Vomiting | Medium | 04/14/19 | | | | | | 18 | | + + + + + + Current Medications + + + +---------+------+------+-------+ | Prescription | Sig. | Disp. | Refills | Star | End | Statu | | | | | | t | Date | s | | | | | | Date | | | + + + +---------+------+------+-------+ | ergocalciferol | Take 50,000 Units by | | | | | Activ | | (VITAMIN D-2) 50,000 | mouth Once a week. | | | | | e | | units capsule | | | | | | | + + + +---------+------+------+-------+ | melatonin 5 mg | Take 5 mg by mouth | | | | | Activ | | tablet | nightly as needed | | | | | e | | | for Insomnia. | | | | | | + + + +---------+------+------+-------+ | omeprazole | Take 20-40 mg by | | | | | Activ | | (PRILOSEC) 20 mg | mouth every morning | | | | | e | | TBEC | (before breakfast). | | | | | | + + + +---------+------+------+-------+ | piroxicam | Take 20 mg by mouth | | | | | Activ | | (FELDENE) 20 MG | Daily. | | | | | e | | capsule | | | | | | | + + + +---------+------+------+-------+ | simvastatin | Take 20 mg by mouth | | | | | Activ | | (ZOCOR) 20 mg tablet | nightly. | | | | | e | + + + +---------+------+------+-------+ | Ascorbic Acid | Take 1,000 mg by | | | | | Activ | | (VITAMIN C) 1000 MG | mouth Daily. | | | | | e | | tablet | | | | | | | + + + +---------+------+------+-------+ | cyanocobalamin | Take 1,000 mcg by | | | | | Activ | | (VITAMIN B-12) 1000 | mouth Daily. | | | | | e | | MCG tablet | | | | | | | + + + +---------+------+------+-------+ | [place]-3 Fatty | Take 2,400 mg by | | | | | Activ | | Acids (FISH OIL) | mouth Daily. | | | | | e | | 1200 MG CAPS | | | | | | | + + + +---------+------+------+-------+ | Multiple | Take 1 tablet by | | | | | Activ | | Vitamins-Minerals | mouth Daily. | | | | | e | | (CENTRUM SILVER PO) | | | | | | | + + + +---------+------+------+-------+ | Flaxseed, Linseed, | Take by mouth. | | | | | Activ | | (FLAXSEED OIL PO) | | | | | | e | + + + +---------+------+------+-------+ | finasteride | Take 5 mg by mouth | | | | | Activ | | (PROSCAR) 5 mg | Daily. | | | | | e | | tablet | | | | | | | + + + +---------+------+------+-------+ | tamsulosin | Take 0.4 mg by mouth | | | | | Activ | | (FLOMAX) 0.4 mg CAPS | Daily. | | | | | e | + + + +---------+------+------+-------+ | diazePAM (VALIUM) | Take 0.5-1 tablets | 90 | 0 | 03/1 | 04/1 | Disco | | 5 mg tablet | by mouth every 8 | tablet | | 6/20 | 3/20 | ntinu | | | hours as needed for | | | 18 | 18 | ed | | | Muscle spasms. | | | | | | + + + +---------+------+------+-------+ | oxyCODONE 10 MG | Take 1-2 tablets by | 120 | 0 | 03/1 | 04/ | Disco | | TABS | mouth every 4 hours | tablet | | 6/20 | 3/20 | ntinu | | | as needed. | | | 18 | 18 | ed | + + + +---------+------+------+-------+ | lactulose 10 g/15 | Take 30 mLs by mouth | 240 mL | 2 | 03/1 | 04/ | Disco | | mL solution | 2 times daily. For | | | 6/20 | 3/20 | ntinu | | | constipation | | | 18 | 18 | ed | + + + +---------+------+------+-------+ Active Problems + + + | Problem | Noted Date | + + + | S/P lumbar fusion | 06/11/2017 | + + + | Low back pain | 11/23/2010 | + + + | Hyperlipidemia | 11/23/2010 | + + + | Other intervertebral disc displacement, lumbar region | | + + + | Lumbar radiculopathy | | + + + | Hypertensive disorder | | + + + Encounters +--------+ + + + + | Date | Type | Specialty | Care Team | Description | +--------+ + + + + | 07/16/ | Telephone | | Osvaldo Jon, | Medication Question | | 2017 | | | DO | | +--------+ + + + + | 07/16/ | Ancillary | | Provider, | | | 2018 | Orders | | MD Amina | | +--------+ + + + + | 07/16/ | Telephone | | Osvaldo Jon, | Post-op Question | | 2017 | | | DO | | +--------+ + + + 07/11/ | Office | | Mitchell Smalls, | S/P lumbar fusion | | 2017 | Visit | | PA | (Primary Dx); Lumbar | | | | | | radiculopathy | +--------+ + + + + | 07/08/ | Imaging | | Provider, | | | 2017 | Exam | | MD Amina | | +--------+ + + + + | 07/08/ | Telephone | | Osvaldo Jon, | Imaging Only | | 2017 | | | DO | | +--------+ + + + + | 06/26/ | Telephone | | Osvaldo Jon, | Medication Question | | 2017 | | | DO | | +--------+ + + + + | 06/18/ | Telephone | | Osvaldo Jon, | Post Op (Post-op | 2017 | | | DO | Call) | +--------+ + + + + | 06/13/ | Hospital | | von Verna, Nicole Fair, | | | 2018 | Encounter | | EPHRAIM Givens, | | | | | | MALENA Toussaint | | | | | | Student | | +--------+ + + + + | 06/11/ | Hospital | | Osvaldo Jon, | S/P lumbar fusion | | 2018 - | Encounter | | DO | (Primary Dx) | | | | | | | | 06/13/ | | | | | | 2017 | | | | | +--------+ + + + + +---+ + | | Discharge | | | Summaries | | | - Slim, | | | Mitchell Upton, | | | PA - | | | 06/13/2017 | | | 0743 PDT | | | Formatting | | | of this | | | note may be | | | different | | | from the | | | original.DI | | | EMELIA | | | SUMMARYPt. | | | Name/Age/DO | | | B: Misael | | | Claudia | | | 71 y.o. | | | 1945 | | | Medical | | | Record | | | Number: | | | [id number] | | | Date of | | | Admission: | | | 06/11/2017 | | | Date | | | of | | | Discharge: | | | | | | 06/13/2017Ad | | | mitting | | | Physician: | | | Osvaldo A | | | Dontrell, DO | | | | | | PCP: Austin | | | WalkerDisch | | | arging | | | Physician: | | | Mitchell E. | | | Sucharda, | | | PA | | | Primary | | | Discharge | | | Dx: | | | <principal | | | problem not | | | | | | specified>L | | | 4-L5 | | | spondylolis | | | thesisSecon | | | za | | | Discharge | | | Dx: | | | Patient | | | Active | | | Problem | | | List | | | Diagnosis | | | | | | Other | | | interverteb | | | ral disc | | | displacemen | | | t, lumbar | | | region | | | Lumbar | | | radiculopat | | | hy | | | Low back | | | pain | | | | | | Hypertensiv | | | e disorder | | | | | | | | | Hyperlipide | | | cristhian | | | S/P | | | lumbar | | | fusion | | | Reason for | | | Admission | | | (Brief): | | | The | | | patient is | | | a 71 | | | y.o. male | | | with the | | | complaint | | | of | | | back sympt | | | oms that | | | began many | | | years ago. | | | He | | | previously | | | underwent a | | | lumbar | | | laminectomy | | | 20 years | | | ago by DrAneesh | | | [place] in | | | [place] | | | and 30 | | | years ago | | | by someone | | | in [place], | | | [place]. | | | The | | | patient | | | describes | | | waking up | | | in December | | | 2017 with | | | new, severe | | | left leg | | | symptoms. | | | The | | | symptoms | | | have been | | | unchanged. | | | He rat | | | es the back | | | pain as | | | moderate. | | | The | | | symptoms | | | are | | | intermitten | | | t. | | | He descr | | | ibes the | | | pain as | | | aching and | | | stabbing. | | | The | | | patient | | | describes | | | leg | | | symptoms | | | that occur | | | on left | | | side. The | | | leg | | | symptoms | | | account for | | | greater | | | than or | | | equal to | | | 90% of | | | his sympto | | | ms. The | | | leg | | | symptoms | | | are | | | constant a | | | nd the | | | symptoms | | | travels | | | from the | | | back around | | | the front | | | of his leg | | | into his | | | groin and | | | medial | | | thigh. T | | | he patient | | | also | | | describes | | | shooting | | | pain, | | | numbness, | | | and | | | weakness. | | | He used to | | | be able to | | | walk as far | | | as he | | | wanted, not | | | he can | | | only walk | | | 200 yards | | | before | | | having to | | | sit. He has | | | to use his | | | arms to | | | lift his | | | leg into | | | the car | | | currently. | | | This is | | | frustrating | | | for him as | | | he used to | | | be very | | | active. | | | Hospital | | | Course, | | | including | | | Complicatio | | | ns: The | | | patient was | | | admitted | | | for planned | | | surgery. | | | He had a | | | lumbar | | | fusion | | | completed | | | without | | | complicatio | | | n. After | | | surgery, | | | there were | | | no events. | | | He | | | mobilized | | | well. The | | | patient was | | | discharged | | | home and | | | will | | | follow-up | | | as an | | | outpatient. | | | There were | | | no cardiac | | | issues, | | | pulmonary | | | issues, | | | evidence of | | | DVT or | | | infection. | | | | | | Medications | | | Reconciled | | | upon | | | Discharge | | | are: | | | Discharge | | | Medications | | | New | | | Medications | | | Details | | | diazePAM 5 | | | mg tablet | | | Take 0.5-1 | | | tablets by | | | mouth every | | | 8 hours as | | | needed for | | | Muscle | | | spasms.aka: | | | VALIUM | | | lactulose | | | 10 g/15 mL | | | solution | | | Take 30 mLs | | | by mouth 2 | | | times | | | daily. For | | | constipatio | | | n oxyCODONE | | | 10 MG Tabs | | | Take 1-2 | | | tablets by | | | mouth every | | | 4 hours as | | | needed. | | | Unchanged | | | Medications | | | Details | | | CENTRUM | | | SILVER PO | | | Take 1 | | | tablet by | | | mouth | | | Daily. | | | cyanocobala | | | min 1000 | | | MCG tablet | | | Take 1,000 | | | mcg by | | | mouth | | | Daily.aka: | | | VITAMIN | | | B-12 | | | ergocalcife | | | rol 50,000 | | | units | | | capsule | | | Take 50,000 | | | Units by | | | mouth Once | | | a week.aka: | | | VITAMIN | | | D-2 | | | finasteride | | | 5 mg | | | tablet Take | | | 5 mg by | | | mouth | | | Daily.aka: | | | PROSCAR | | | Fish Oil | | | 1200 MG | | | Caps Take | | | 2,400 mg by | | | mouth | | | Daily. | | | FLAXSEED | | | OIL PO Take | | | by mouth. | | | melatonin | | | 5 mg tablet | | | Take 5 mg | | | by mouth | | | nightly as | | | needed for | | | Insomnia. | | | omeprazole | | | 20 mg Tbec | | | Take 20-40 | | | mg by mouth | | | every | | | morning | | | (before | | | breakfast). | | | aka: | | | priLOSEC | | | piroxicam | | | 20 MG | | | capsule | | | Take 20 mg | | | by mouth | | | Daily.aka: | | | FELDENE | | | simvastatin | | | 20 mg | | | tablet Take | | | 20 mg by | | | mouth | | | nightly.aka | | | : ZOCOR | | | tamsulosin | | | 0.4 mg Caps | | | Take 0.4 | | | mg by mouth | | | Daily.aka: | | | FLOMAX | | | vitamin C | | | 1000 MG | | | tablet Take | | | 1,000 mg | | | by mouth | | | Daily. | | | Condition | | | on | | | Discharge: | | | StableFollo | | | w-Up Plans: | | | | | | Follow-up: | | | 3-4 weeks | | | for routine | | | follow-up. | | | | | | Follow-up | | | with | | | primary | | | care | | | physician | | | as needed. | | | Diet: | | | Resume home | | | diet | | | Activity: | | | Continue to | | | follow | | | guidelines | | | and | | | precautions | | | as | | | previously | | | discussed. | | | Bracing: | | | B | | | BraceElectr | | | onically | | | signed by: | | | Mitchell E. | | | Sucharda, | | | 06/13/2017 | | | 7:45 [facility] | +---+ + +--------+ +---+ + + | 06/11/ | Hospital | | Osvaldo Jon, | | | 2017 | Encounter | | DO | | +--------+ +---+ + + | 06/11/ | Procedure | | | | | 2017 | Pass | | | | +--------+ +---+ + + | 06/11/ | Surgery | | Osvaldo Jon, | L2-3 LAIF | | 2017 | | | DO | | +--------+ +---+ + + | 06/10/ | Anesthesia | | Lashawn, | | | 2018 | Event | | Ad Mac MD | | +--------+ +---+ + + | 06/09/ | Telephone | | Osvaldo Jon, | Procedure | | 2018 | | | DO | (confirmation call ) | +--------+ +---+ + + | 06/03/ | Orders Only | | Osvaldo Jon, | Displacement of | | 2017 | | | DO | lumbar | | | | | | intervertebral disc | | | | | | without myelopathy | | | | | | (Primary Dx); S/P | | | | | | lumbar fusion | +--------+ +---+ + + | 05/21/ | Preadmit | | Osvaldo Jon, | Preoperative | | 2017 | Visit | | DO | clearance (Primary | | | | | | Dx); Other | | | | | | intervertebral disc | | | | | | displacement, lumbar | | | | | | region; Lumbar | | | | | | radiculopathy; Low | | | | | | back pain, | | | | | | unspecified back | | | | | | pain laterality, | | | | | | unspecified | | | | | | chronicity, with | | | | | | sciatica presence | | | | | | unspecified; | | | | | | Hypertension, | | | | | | unspecified type; | | | | | | Hyperlipidemia, | | | | | | unspecified | | | | | | hyperlipidemia type | +--------+ +---+ + + | 05/21/ | Clinical | | Osvaldo Jon, | Lumbar radiculopathy | | 2018 | Support | | DO | (Primary Dx); Low | | | | | | back pain, | | | | | | unspecified back | | | | | | pain laterality, | | | | | | unspecified | | | | | | chronicity, with | | | | | | sciatica presence | | | | | | unspecified; | | | | | | Neurogenic | | | | | | claudication; Lumbar | | | | | | spondylosis; Back | | | | | | pain, unspecified | | | | | | back location, | | | | | | unspecified back | | | | | | pain laterality, | | | | | | unspecified | | | | | | chronicity; Acute | | | | | | back pain with | | | | | | sciatica, left; Left | | | | | | leg weakness; | | | | | | Lumbar disc | | | | | | herniation; | | | | | | Displacement of | | | | | | lumbar | | | | | | intervertebral disc | | | | | | without myelopathy | +--------+ +---+ + + | 05/02/ | Orders Only | | Osvaldo Jon, | Other intervertebral | | 2017 | | | DO | disc displacement, | | | | | | lumbar region; | | | | | | Lumbar | | | | | | radiculopathy; Low | | | | | | back pain, | | | | | | unspecified back | | | | | | pain laterality, | | | | | | unspecified | | | | | | chronicity, with | | | | | | sciatica presence | | | | | | unspecified; | | | | | | Hypertension, | | | | | | unspecified type; | | | | | | Hyperlipidemia, | | | | | | unspecified | | | | | | hyperlipidemia type | +--------+ +---+ + + | 05/01/ | Episode | | Anya Muro, | | | 2018 | Changes | | Cert MA | | +--------+ +---+ + + | 05/01/ | Telephone | | Osvaldo Jon, | Other | 2017 | | | DO | | +--------+ +---+ + + | 05/01/ | Telephone | | Osvaldo Jon, | Procedure | 2017 | | | DO | (Scheduling ) | +--------+ +---+ + + 04/24/ | Telephone | | Osvaldo Jon, | Insurance | 2017 | | | DO | Authorization | +--------+ +---+ + + 04/23/ | Episode | | Anya Muro, | | 2017 | Changes | | Cert MA | | +--------+ +---+ + + | 04/23/ | Orders Only | | Osvaldo Jon, | Displacement of | | 2018 | | | DO | lumbar | | | | | | intervertebral disc | | | | | | without myelopathy | | | | | | (Primary Dx); Other | | | | | | idiopathic [...] | | Left leg weakness | +--------+ +---+ + + | 04/22/ | Office | | Osvaldo Jon, | Lumbar disc | | 2018 | Visit | | DO | herniation (Primary | | | | | | Dx); Other | | | | | | idiopathic [...] | | Left leg weakness | +--------+ +---+ + + | 04/22/ | Hospital | | Osvaldo Jon, | Back pain, | | 2018 | Encounter | | DO | unspecified back | | | | | | location, | | | | | | unspecified back | | | | | | pain laterality, | | | | | | unspecified | | | | | | chronicity | +--------+ +---+ + + from Last 3 Months Family History + + +------+ + | Medical History | Relation | Name | Comments | + + +------+ + | Heart attack | Father | | | + + +------+ + | Heart disease | Father | | | + + +------+ + | Hypertension | Father | | | + + +------+ + | Cancer | Maternal | | | | | Aunt | | | + + +------+ + | Heart attack | Maternal | | | | | Grandfath | | | | | er | | | + + +------+ + | Bleeding problems | Maternal | | Blood Clot | | | Grandmoth | | | | | er | | | + + +------+ + | Heart attack | Maternal | | | | | Uncle | | | + + +------+ + | Arthritis | Mother | | | + + +------+ + | Cancer | Mother | | Pancreatic | + + +------+ + | Lung cancer | Mother | | | + + +------+ + | Heart attack | Paternal | | | | | Aunt | | | + + +------+ + | Heart attack | Paternal | | | | | Grandfath | | | | | er | | | + + +------+ + | Heart disease | Paternal | | | | | Grandfath | | | | | er | | | + + +------+ + | Kidney disease | Paternal | | | | | Grandmoth | | | | | er | | | + + +------+ + | Diabetes | Sister | | | + + +------+ + + +------+ + + | Relation | Name | Status | Comments | + +------+ + + | Father | | | | | | | (Age | | | | | 61) | | + +------+ + + | Maternal Aunt | | | Cancer | | | | (Age | | | | | 82) | | + +------+ + + | Maternal Grandfather | | | Heart Attack | | | | (Age | | | | | 78) | | + +------+ + + | Maternal Grandmother | | | Blood Clot | | | | (Age | | | | | 50) | | + +------+ + + | Maternal Uncle | | | Heart Attack | | | | (Age | | | | | 86) | | + +------+ + + | Mother | | | Liver Cancer | | | | (Age | | | | | 65) | | + +------+ + + | Paternal Aunt | | | Heart Attack | | | | (Age | | | | | 78) | | + +------+ + + | Paternal Grandfather | | | Heart Attack | | | | (Age | | | | | 70) | | + +------+ + + | Paternal Grandmother | | | Kidney Disease | | | | (Age | | | | | 79) | | + +------+ + + | Sister | | | | + +------+ + + Social History + + + [...] on file | | + + + Last Filed Vital Signs + + + + | Vital Sign | Reading | Time Taken | + + + + | Blood Pressure | 110/67 | 07/11/2017899 PDT | + + + + | Pulse | 77 | 07/11/2017899 PDT | + + + + | Temperature | 37.4 C (99.3 F) | 06/13/2017752 PDT | + + + + | Respiratory Rate | 16 | 06/13/2017752 PDT | + + + + | Oxygen Saturation | 92% | 06/13/2017752 PDT | + + + + | Inhaled Oxygen | - | - | | Concentration | | | + + + + | Weight | 121.6 kg (268 lb) | 07/11/2017899 PDT | + + + + | Height | 175.3 cm (5' 9") | 07/11/2017899 PDT | + + + + | Body Mass Index | 39.58 | 07/11/2017899 PDT | + + + + Plan of Treatment +--------+---------+ + + + | Date | Type | Specialty | Care Team | Description | +--------+---------+ + + + | 09/17/ | Office | | Osvaldo Jon, | | | 2017 | Visit | | DO [address] | | | | | | [address] [place], | | | | | | [place] [address] | | | | | | [phone] | | | | | | | | +--------+---------+ + + + + + + + + | Health Maintenance | Due Date | Last Done | Comments | + + + + + | Hepatitis C | | | | | Screening | 8 | | | + + + + + | Vaccine: | | | | | Dtap/Tdap/Td (1 - | 7 | | | | Tdap) | | | | + + + + + | COLON CANCER | | | | | SCREENING | 8 | | | | (COLONOSCOPY EVERY | | | | | 10 YEARS 50-75) | | | | + + + + + | Vaccine: | | | | | Pneumococcal 65+ | 3 | | | | Low/Medium Risk (1 | | | | | of 2 - PCV13) | | | | + + + + + | Vaccine: Influenza | | 12/17/2013, 02/08/2013, | | | (Season Ended) | 8 | 03/30/2009, Additional history | | | | | exists | | + + + + + Implants + +--------+------+ +--------+--------+--------+ | Implanted | Type | Area | Manufacture | Device | Expira | Model | | | | | r | | tion | / | | | | | | Identi | Date | Serial | | | | | | fier | | / Lot | + +--------+------+ +--------+--------+--------+ | Rommel Sext Solera [id number] - | Generi | | [employer] - | | | [id number] | | [id number]: Qty: 2 on | c | | MEDT | | | [id number] / | | 06/11/2017 by Osvaldo Jon | | | | | | / | | A DO | | | | | | | + +--------+------+ +--------+--------+--------+ | Putty Jodi 5cc Dbm - | Graft | | [employer] - | | 01/29/ | [id number] | | [id number]: Qty: 1 | | | MEDT | | 2020 | [id number] | | on 06/11/2017 by Dontrell, | | | | | | 3-025 | | Osvaldo Villar DO | | | | | | / | + +--------+------+ +--------+--------+--------+ | Screw Chino Solera 6.5x60mm - | Screw | | [employer] - | | | [id number] | | [id number]: Qty: 4 on | | | MEDT | | | [id number] | | 06/11/2017 by Osvaldo Jon | | | | | | / / | | DO Aurea | | | | | | | + +--------+------+ +--------+--------+--------+ | Set Scrw Ns G5 Brk Off Ti | Screw | | [employer] - | | | [id number] | | 4.75 - [id number]: | | | MEDT | | | 0 / / | | Qty: 4 on 06/11/2017 by | | | | | | | | Osvaldo Jon DO | | | | | | | + +--------+------+ +--------+--------+--------+ | Spcr Trnscntl [id number] 10d | | | GLOBUS | | | 375.88 | | 11mm - [id number]: | | | MEDICAL - | | | 0 / / | | Qty: 1 on 06/11/2017 by | | | GLBU | | | | | Osvaldo Jon, | | | | | | | + +--------+------+ +--------+--------+--------+ Procedures + +--------+ + + + | Procedure Name | Priori | Date/Time | Associated Diagnosis | Comments | | | ty | | | | + +--------+ + + + | ANE AIRWAY NOTE | Routin | 06/11/2017 | | Results for this | | | e | 1253 PDT | | procedure are in the | | | | | | results section. | + +--------+ + + + | L2-3 LAIF | | 06/11/2017 | Displacement of | | | | | 1215 PDT | lumbar | | | | | | intervertebral disc | | | | | | without myelopathy | | | | | | (M51.26), Other | | | | | | idiopathic | | | | | | scoliosis, lumbar | | | | | | region (M41.26), | | | | | | Lumbar spondylosis | | | | | | (M47.816), | | | | | | Neurogenic | | | | | | claudication | | | | | | (M48.062), Lumbar | | | | | | radiculopathy | | | | | | (M54.16), Acute back | | | | | | pain with sciatica, | | | | | | | | + +--------+ + + + +---+--------+ | | Case | | | Notes | | | | | | Specia | | | lty | | | Care | | | Needed | | | : | | | YesIns | | | trumen | | | ts/Spe | | | cial | | | Equipm | | | ent: | | | C-Arm, | | | | | | Drill, | | | | | | Micros | | | cope, | | | METRx, | | | | | | O-Arm, | | | | | | Naviga | | | tion | | | Instru | | | ments, | | | | | | Stealt | | | h | | | Biolog | | | ics: | | | Infuse | | | , | | | Grafto | | | n All | | | biolog | | | ics | | | approv | | | edPosi | | | tion/S | | | equenc | | | e: | | | Right | | | side | | | upTabl | | | e: | | | Jackso | | | n Gaston | | | Frame | | | , | | | Jackso | | | n | | | Frame | | | REP: | | | Giovanni | | | Russ | | | ; | | | Mir | | | Yan | | | | | | Implan | | | ts: | | | Globus | | | Cage, | | | | | | Sextan | | | t | +---+--------+ | | | | | Specia | | | l | | | Needs | | | | | | Specia | | | lty | | | Care | | | Needed | | | : | | | YesPos | | | ition/ | | | Sequen | | | ce: | | | Right | | | side | | | upTabl | | | e: | | | Jackso | | | n Gaston | | | Frame | | | , | | | Jackso | | | n | | | Frame | | | REP: | | | Giovanni | | | Russ | | | ; | | | Mir | | | Yan | | | | | | Implan | | | ts: | | | Globus | | | Cage, | | | | | | Sextan | | | t | +---+--------+ from Last 3 Months Results XR Lumbar Spine 2 or 3 Vw (07/08/2017 1345)Only the most recent of 2 results within the period is included. + + + | Specimen | Performing Laboratory | + + + | | [facility] | + + + + + | Narrative | + + | External films for comparison only No results will be in the chart. | + + FL C-Arm Stats No Charge (06/11/2017 8964) + + + | Specimen | Performing Laboratory | + + + | | [facility] | + + + + + | Narrative | + + | No Radiologist interpretation, please see Chart Review. | + + Anesthesia Airway Note (06/11/2017 1253) + + | Narrative | + + | Ad Hardin MD 06/11/2017 12:53 Anesthesia Airway Placement | [...] | AD Mac Electronically Signed by: Ad Hardin | | ESig date/time: 06/11/2017 | | [...] 06/11/2017 12:53 | | | + + Type and Screen (06/11/2017 1050) + + + + | Component | Value | Ref Range | + + + + | ABO | B | | + + + + | Rh Type | Positive | | + + + + | Antibody Screen | Negative | | + + + + + + + | Specimen | Performing Laboratory | + + + | Blood | [facility] [address] | | | [place] [id number] | + + + Culture, MRSA (05/21/2017 1548) + + + + | Component | Value | Ref Range | + + + + | Culture | Negative for MRSA by chromogenic agar | | | | method | | + + + + + + + | Specimen | Performing Laboratory | + + + | Respiratory - Nares | [facility] | | | [place] [id number] | + + + CBC with Differential (05/21/2017 1548) + +-------+ + | Component | Value | Ref Range | + +-------+ + | WBC | 5.3 | 4.0 - 11.0 K/uL | + +-------+ + | RBC | 4.93 | 4.30 - 5.70 M/uL | + +-------+ + | Hgb | 13.8 | 13.5 - 18.0 g/dL | + +-------+ + | Hct | 42.1 | 40.0 - 51.0 % | + +-------+ + | MCV | 85.5 | 83.0 - 101.0 fL | + +-------+ + | MCH | 28.0 | 28.0 - 35.0 pg | + +-------+ + | MCHC | 32.8 | 32.0 - 36.0 g/dL | + +-------+ + | RDW-CV | 13.9 | <15.0 % | + +-------+ + | Platelet Count | 182 | 140 - 440 K/uL | + +-------+ + | MPV | 9.9 | fL | + +-------+ + | % Neutrophils | 59.6 | 45.0 - 82.0 % | + +-------+ + | % Lymphocytes | 26.8 | 20.0 - 45.0 % | + +-------+ + | % Monocytes | 10.1 | 4.0 - 12.0 % | + +-------+ + | % Eosinophils | 2.5 | 0.0 - 5.0 % | + +-------+ + | % Basophils | 1.0 | 0.0 - 1.0 % | + +-------+ + | Absolute Neutrophils | 3.20 | 1.80 - 8.50 K/uL | + +-------+ + | Absolute Lymphocytes | 1.40 | 0.60 - 3.20 K/uL | + +-------+ + | Absolute Monocytes | 0.50 | 0.00 - 1.00 K/uL | + +-------+ + | Absolute Eosinophils | 0.10 | 0.00 - 0.40 K/uL | + +-------+ + | Absolute Basophils | 0.10 | 0.00 - 0.10 K/uL | + +-------+ + + + + | Specimen | Performing Laboratory | + + + | Blood | [facility] | | | [place] [address] | + + + ECG 12 lead (05/21/2017 1544) + + +------ -----+ | Component | Value | Ref R phylicia | + + +------ -----+ | VENTRICULAR RATE EKG | 63 | BPM | + + +------ -----+ | ATRIAL RATE | 63 | BPM | + + +------ -----+ | P-R INTERVAL | 148 | ms | + + +------ -----+ | QRS DURATION | 82 | ms | + + +------ -----+ | Q-T INTERVAL | 402 | ms | + + +------ -----+ | Q-T INTERVAL | 411 | ms | | (CORRECTED) | | | + + +------ -----+ | P WAVE AXIS | 35 | degre es | + + +------ -----+ | QRS AXIS | -25 | degre es | + + +------ -----+ | T AXIS | 13 | degre es | + + +------ -----+ | INTERPRETATION TEXT | Normal sinus rhythmNormal ECGNo previous | | | | ECGs availableConfirmed by GINA VAZQUEZ MD | | | | ([id number]) on 05/22/2017 7:06:50 AM | | | |Confirmed by GINA VAZQUEZ MD ([id number]) on 05/22/2017 7:06:50 AM | | | | | | + + +------ -----+ + + + | Specimen | Performing Laboratory | + + + | | [facility] | + + + XR Lumbar Spine 4 + Vw (04/22/2017 0839) + + | Narrative | + + | XR LUMBAR SPINE 4 + VW 04/22/2017 8:34 AM HISTORY: back pain. COMPARISON: | | Multiple priors. FINDINGS: There is mild spondylosis. Mild anterolisthesis is | | visualized of L4 over L5 with mild motion. Bone mineralization is normal. Vertebral | | body height are preserved with no evidence for compression fractures. Moderate disc | | narrowing are seen from L2-3 through L4-5. Facet sclerosis and hypertrophy are at L4-5 | | and L5-S1. Visualized ribs and pelvic osseous structures show no acute findings. There | | is mild atherosclerosis. Mild degenerative changes are noted of the hips. 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 Dictated and | | Signed by: Earl Merchant MD Electronically signed: 04/22/2017 2:10 PM | + + + + | Procedure Note | + + | Brandon, Rad Results In - 04/22/2017 1413 PST XR LUMBAR SPINE 4 + VW 04/22/2017 8:34 AM | | | | HISTORY: back pain. | | | | COMPARISON: Multiple priors. | | | | FINDINGS: | | There is mild spondylosis. Mild anterolisthesis is visualized of L4 over L5 with | | mild motion. Bone mineralization is normal. Vertebral body height are preserved | | with no evidence for compression fractures. Moderate disc narrowing are seen | | from L2-3 through L4-5. Facet sclerosis and hypertrophy are at L4-5 and L5-S1. | | Visualized ribs and pelvic osseous structures show no acute findings. There is | | mild atherosclerosis. Mild degenerative changes are noted of the hips. 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 | | | | Dictated and Signed by: Earl Merchant MD | | Electronically signed: 04/22/2017 2:10 PM | + + from Last 3 Months Insurance + +--------+ +--------+ +---------+ | Payer | Benefi | Subscriber | Type | Phone | Address | | | t Plan | ID | | | | | | / | | | | | | | Group | | | | | + +--------+ +--------+ +---------+ | [employer] | VETERA | xxxxxxxxxx | Indemn | | | | | NS | | ity | | | | | CHOICE | | | | | + +--------+ +--------+ +---------+ | MEDICARE | MEDICA | xxxxxxxxxx | Medica | +1- | | | | RE | | re | [id number] | | | | PART A | | | | | | | AND B | | | | | + +--------+ +--------+ +---------+ | [employer] | UNITED | xxxxxxxx | Indemn | [id number] | | | | OF | | ity | 1000 | | | | [place] | | | | | | | MDCR | | | | | | | SUPPL | | | | | + +--------+ +--------+ +---------+ + +--------+ +--------+ + + | Guarantor Name | Accoun | Relation to | Date | Phone | Billing Address | | | t Type | Patient | of | | | | | | | | | | + +--------+ +--------+ + + | MISAEL ARZOLA | Person | Self [birth year] | Home: | [address] | | | [place] | | 1946 | [phone] | [place] | | | [place] | | | [phone] | [phone] | + +--------+ +--------+ + +
--- OUTSIDE RECORDS SUMMARY | ~2017-07-18 | XMS | Clinical Summary ---
Demographics + + + | Address | [address] | | | [place] [address] | + + + | Home Phone | | + + + | Preferred Language | Unknown | + + + | Marital Status | | + + + | Mormon Affiliation | Unknown | + + + | Race | Unknown | + + + | Ethnic Group | Unknown | + + + Author + + + | Author | [facility] | | | and [place] | + + + | Organization | [facility] | | | and [place] [...] Team Providers + +------+ + | Care Homeowner Association Manager Name | Role | Phone | + [...] | | + + + +---------+------+------+-------+ | [place]-3 Fatty | Take 2,400 mg by | [...] | | | Number: | | | [phone] | | | Date of | | [...] | | [place] in | | | [place] | | | and 30 | | | years ago | | | by someone | | | in [place], | | | [place]. | | | The | | | [...] [place], | | | | | | [place] [address] | | | | | | [phone] | | | | | | | [...] + +--------+------+ +--------+--------+--------+ | Rommel Sext Solera [id number] - | Generi | | [employer] - | | | [id number] | | [id number]: Qty: 2 on | c | | MEDT | | | [id number] / | | 06/11/2017 by Osvaldo Jon | | | | | | / | | A DO | | | | | | | + +--------+------+ +--------+--------+--------+ | Putty Jodi 5cc Dbm - | Graft | | [employer] - | | 01/29/ | [id number] | | [id number]: Qty: 1 | | | MEDT | | 2020 | [id number] | | on 06/11/2017 by Dontrell, | | | | | | 3-025 | | Osvaldo Villar DO | | | | | | / | + +--------+------+ +--------+--------+--------+ | Screw Chino Solera 6.5x60mm - | Screw | | [employer] - | | | [id number] | | [id number]: Qty: 4 on | | | MEDT | | | [id number] | | 06/11/2017 by Osvaldo Jon | | | | | | / / | | DO Aurea | | | | | | | + +--------+------+ +--------+--------+--------+ | Set Scrw Ns G5 Brk Off Ti | Screw | | [employer] - | | | [id number] | | 4.75 - [id number]: | | | MEDT | | | 0 / / | | Qty: 4 on 06/11/2017 by | | | | | | | | Osvaldo Jon DO | | | | | | | + +--------+------+ +--------+--------+--------+ | Spcr Trnscntl [id number] 10d | | | GLOBUS | | | 375.88 | | 11mm - [id number]: | | | MEDICAL - | | | 0 / / | | Qty: 1 on 06/11/2017 by | | | GLBU | | | | | Osvadlo Jon, | | | | | | [...] | | Jackso | | | n Watson | | | Frame | | | [...] | | Jackso | | | n Watson | | | Frame | | | [...] + FL C-Arm Stats No Charge (06/11/2017 5189) + + + | Specimen | Performing [...] + + + | Blood | [facility] | | | [place] [address] | + + + Culture, MRSA (05/21/2017 1548) + + + + | Component | Value | Ref Range | + + + + | Culture | Negative for MRSA by chromogenic agar | | | | method | | + + + + + + + | Specimen | Performing Laboratory | + + + | Respiratory - Nares | [facility] | | | [place] [address] | + + + CBC with Differential [...] | + + + | Blood | [facility] | | | [place] [address] | + + + ECG 12 lead [...] GINA VAZQUEZ MD | | | | ([id number]) on 05/22/2017 7:06:50 AM | | | |Confirmed by GINA VAZQUEZ MD ([id number]) on 05/22/2017 7:06:50 AM | | | [...] + +--------+ +--------+ +---------+ | [employer] | UNITED | xxxxxxxx | Indemn | [id number] | | | | OF | | ity | 1000 | | | | TORRES MARTINEZ | | | | | | | [...] | Self | [birth year] | Home: | [address] | | | [place] | | 1946 | [phone] | [place] | | | [place] | | | [phone] | [phone] | + +--------+ +--------+ + +
--- OUTSIDE RECORDS SUMMARY | ~2017-07-18 | XMS | Encounter Summary ---
Demographics + + + | Address | [address] | | | [place] [address] | + + + | Home Phone | | + + + | Preferred Language | Unknown | + + + | Marital Status | | + + + | Nondenominational Affiliation | Unknown | + + + | Race | Unknown | + + + | Ethnic Group | Unknown | + + + Author + + + | Author | [facility] | | | and [place] | + + + | Organization | [facility] | | | and [place] | [...] Team Providers + +------+ + | Care Stock Preparation Supervisor Name | Role | Phone | + +------+ + PCP | Unavailable | + +------+ + Reason for Visit Evaluate & Treat (Routine) +--------+--------+ + + + + | Status | Reason | Specialty | Diagnoses / | Referred By | Referred To | | | | | Procedures | Contact | Contact | +--------+--------+ + + + + | Closed | | Radiology | Procedures | [place], | [facility] | | | | | [facility] | Osvaldo Villar DO | [address] | | | | | | [address] | [place], | | | | | | [address] | [place] | | | | | | [address] | [address] | | | | | | [place], | Phone: | | | | | | [place] [address] | [phone] | | | | | | Phone: | Fax: | | | | | | [phone] | [phone] | | | | | | Fax: | | | | | | | [phone] | | +--------+--------+ + + + + Encounter Details +--------+ + + + + | Date | Type | Department | Care Team | Description | +--------+ + + + + | 04/22/ | Hospital | [facility] | Osvaldo Jon, | Back pain, | | 2018 | Encounter | MED CTR XRAY [address] | DO [address] | unspecified back | | | | [place] | [address] [place], | location, | | | | [place] [address] | [place] [address] | unspecified back | | | | [phone] | [phone] | pain laterality, | | | | | | unspecified | | | | | | chronicity | +--------+ + + + + Social [...] + + + as of this encounter Medications at Time of Discharge + + +-------+---------+--------+ + | Medication | Sig. | Disp. | Refills | Start | End Date | | | | | | Date | | + + +-------+---------+--------+ + | Ascorbic Acid | Take 1,000 mg by | | | | | | (VITAMIN C) 1000 MG | mouth Daily. | | | | | | tablet | | | | | | + + +-------+---------+--------+ + | cyanocobalamin | Take 1,000 mcg by | | | | | | (VITAMIN B-12) 1000 | mouth Daily. | | | | | | MCG tablet | | | | | | + + +-------+---------+--------+ + | ergocalciferol | Take 50,000 Units by | | | | | | (VITAMIN D-2) 50,000 | mouth Once a week. | | | | | | units capsule | | | | | | + + +-------+---------+--------+ + | finasteride | Take 5 mg by mouth | | | | | | (PROSCAR) 5 mg | Daily. | | | | | | tablet | | | | | | + + +-------+---------+--------+ + | Flaxseed, Linseed, | Take by mouth. | | | | | | (FLAXSEED OIL PO) | | | | | | + + +-------+---------+--------+ + | melatonin 5 mg | Take 5 mg by mouth | | | | | | tablet | nightly as needed | | | | | | | for Insomnia. | | | | | + + +-------+---------+--------+ + | Multiple | Take 1 tablet by | | | | | | Vitamins-Minerals | mouth Daily. | | | | | | (CENTRUM SILVER PO) | | | | | | + + +-------+---------+--------+ + | [place]-3 Fatty | Take 2,400 mg by | | | | | | Acids (FISH OIL) | mouth Daily. | | | | | | 1200 MG CAPS | | | | | | + + +-------+---------+--------+ + | omeprazole | Take 20-40 mg by | | | | | | (PRILOSEC) 20 mg | mouth every morning | | | | | | TBEC | (before breakfast). | | | | | + + +-------+---------+--------+ + | piroxicam | Take 20 mg by mouth | | | | | | (FELDENE) 20 MG | Daily. | | | | | | capsule | | | | | | + + +-------+---------+--------+ + | simvastatin | Take 20 mg by mouth | | | | | | (ZOCOR) 20 mg tablet | nightly. | | | | | + + +-------+---------+--------+ + | tamsulosin | Take 0.4 mg by mouth | | | | | | (FLOMAX) 0.4 mg CAPS | Daily. | | | | | + + +-------+---------+--------+ + as of this encounter Plan of Treatment +--------+---------+ + + + | Date | Type | Specialty | Care Team | Description | +--------+---------+ + + + | 09/17/ | Office | Neurosurgery | Osvaldo Jon, | | | 2017 | Visit | | DO [address] | | | | | | [address] [place], | | | | | | [place] [address] | | | | | | [phone] | | | | | | | | +--------+---------+ + + + as of this encounter Results XR Lumbar Spine 4 + Vw (04/22/2017 [...] signed: 04/22/2017 2:10 PM | + + in this encounter Visit Diagnoses + + | Diagnosis | + + | Back pain, unspecified back location, unspecified back pain laterality, unspecified | | chronicity | + +"
--- OUTSIDE RECORDS SUMMARY | ~2017-07-18 | XMS | Encounter Summary ---
Demographics + + + | Address | [address] | | | [place] [address] | + + + | Home Phone | | + + + | Preferred Language | Unknown | + + + | Marital Status | | + + + | Confucianist Affiliation | Unknown | + + + | Race | Unknown | + + + | Ethnic Group | Unknown | + + + Author + + + | Author | [facility] | | | and [place] | + + + | Organization | [facility] | | | and [place] [...] Team Providers + +------+ + | Care Paper Machine Backtender Name | Role | Phone | + [...] | | | | | | | [place] | | | | | | | ARTHRODESIS | | | | | | | POSTERIOR/PO | | | | | | | STEROLATERAL | | | | | | | LUMBAR [place] | | | | | | | LUMBAR SPINE | | | | | | | | | | | | | | FUSION,ANTER | | | | | | | APPRCH [place] | | | | | | | [...] | | | | | | [place] | | | | | | | [...] + + | 06/11/ | Hospital | [facility] | Osvaldo Jon, | | | 2018 | Encounter | MED CTR XRAY [address] | DO [address] | | | | | [place] | [address] [place], | | | | | [place] [address] | [place] [address] | | | | | [phone] | [phone] | | | | | | | | +--------+ + [...] Medications at Time of Discharge + + + +---------+ + + | Medication | Sig. | Disp. | Refills | Start | End Date | | | | | | Date | | + + + +---------+ + + | Ascorbic Acid | Take 1,000 mg by | | | | | | (VITAMIN C) 1000 MG | mouth Daily. | | | | | | tablet | | | | | | + + + +---------+ + + | cyanocobalamin | Take 1,000 mcg by | | | | | | (VITAMIN B-12) 1000 | mouth Daily. | | | | | | MCG tablet | | | | | | + + + +---------+ + + | ergocalciferol | Take 50,000 Units by | | | | | | (VITAMIN D-2) 50,000 | mouth Once a week. | | | | | | units capsule | | | | | | + + + +---------+ + + | finasteride | Take 5 mg by mouth | | | | | | (PROSCAR) 5 mg | Daily. | | | | | | tablet | | | | | | + + + +---------+ + + | Flaxseed, Linseed, | Take by mouth. | | | | | | (FLAXSEED OIL PO) | | | | | | + + + +---------+ + + | melatonin 5 mg | Take 5 mg by mouth | | | | | | tablet | nightly as needed | | | | | | | for Insomnia. | | | | | + + + +---------+ + + | Multiple | Take 1 tablet by | | | | | | Vitamins-Minerals | mouth Daily. | | | | | | (CENTRUM SILVER PO) | | | | | | + + + +---------+ + + | [place]-3 Fatty | Take 2,400 mg by | | | | | | Acids (FISH OIL) | mouth Daily. | | | | | | 1200 MG CAPS | | | | | | + + + +---------+ + + | omeprazole | Take 20-40 mg by | | | | | | (PRILOSEC) 20 mg | mouth every morning | | | | | | TBEC | (before breakfast). | | | | | + + + +---------+ + + | piroxicam | Take 20 mg by mouth | | | | | | (FELDENE) 20 MG | Daily. | | | | | | capsule | | | | | | + + + +---------+ + + | simvastatin | Take 20 mg by mouth | | | | | | (ZOCOR) 20 mg tablet | nightly. | | | | | + + + +---------+ + + | tamsulosin | Take 0.4 mg by mouth | | | | | | (FLOMAX) 0.4 mg CAPS | Daily. | | | | | + + + +---------+ + + | diazePAM (VALIUM) | Take 0.5-1 tablets | 90 | 0 | 06/14/19 | | | 5 mg tablet | by mouth every 8 | tablet | | 18 | 8 | | | hours as needed for | | | | | | | Muscle spasms. | | | | | + + + +---------+ + + | lactulose 10 g/15 | Take 30 mLs by mouth | 240 mL | 2 | 06/14/19 | | | mL solution | 2 times daily. For | | | 18 | 8 | | | constipation | | | | | + + + +---------+ + + | oxyCODONE 10 MG | Take 1-2 tablets by | 120 | 0 | 06/14/19 | | | TABS | mouth every 4 hours | tablet | | 18 | 8 | | | as needed. | | | | | + + + +---------+ + + as of this encounter Plan of Treatment +--------+---------+ + + + | Date | Type | Specialty | Care Team | Description | +--------+---------+ + + + | 09/17/ | Office | Neurosurgery | Osvaldo Jon, | | | 2017 | Visit | | DO [address] | | | | | | [address] [place], | | | | | | [place] [address] | | | | | | [phone] | | | | | | | | +--------+---------+ + + + as of this encounter Visit Diagnoses Not on filein this encounter"
--- OUTSIDE RECORDS SUMMARY | ~2017-07-18 | XMS | Encounter Summary ---
Demographics + + + | Address | [address] | | | [place] [address] | + + + | Home Phone | | + + + | Preferred Language | Unknown | + + + | Marital Status | | + + + | Bahai Affiliation | Unknown | + + + | Race | Unknown | + + + | Ethnic Group | Unknown | + + + Author + + + | Author | [facility] | | | and [place] | + + + | Organization | [facility] | | | and [place] [...] Team Providers + +------+ + | Care External Auditor Name | Role | Phone | + +------+ + | Austin Handy DO | PCP | | + +------+ + Reason for Visit + + + | Reason | Comments | + + + | Procedure | confirmation call | + + + Encounter Details +--------+ + + + + | Date | Type | Department | Care Team | Description | +--------+ + + + + | 06/09/ | Telephone | [facility] [place] | Osvaldo Jon, | Procedure | | 2018 | | NEUROSURGERY [address] | DO [address] | (confirmation call ) | | | | [address] | [address] [place], | | | | | [place], [place] | [place] [address] | | | | | [address] | [phone] | | | | | [phone] | | | +--------+ + + + [...] [place], | | | | | | [place] [address] | | | | | | [phone] | | | | | | | | +--------+---------+ + + + as of this encounter Visit Diagnoses Not on filein this encounter"
--- OUTSIDE RECORDS SUMMARY | ~2017-07-18 | XMS | Encounter Summary ---
Demographics + + + | Address | [address] | | | [place] [address] | + + + | Home Phone | | + + + | Preferred Language | Unknown | + + + | Marital Status | | + + + | Worship Affiliation | Unknown | + + + | Race | Unknown | + + + | Ethnic Group | Unknown | + + + Author + + + | Author | [facility] | | | and [place] | + + + | Organization | [facility] | | | and [place] [...] Team Providers + +------+ + | Care Warehouse Shipping Supervisor Name | Role | Phone | + +------+ + | Austin Handy DO | PCP | | + +------+ + Reason for Visit + + + | Reason | Comments | + + + | Imaging Only | | + + + Encounter Details +--------+ + + + + | Date | Type | Department | Care Team | Description | +--------+ + + + + | 07/08/ | Telephone | [facility] [place] | Osvaldo Jon, | Imaging Only | | 2017 | | NEUROSURGERY [address] | DO [address] | | | | | [address] | [address] [place], | | | | | [place], [place] | [place] [address] | | | | | [address] | [phone] | | | | | [phone] | | | +--------+ + + + [...] [place], | | | | | | [place] [address] | | | | | | [phone] | | | | | | | | +--------+---------+ + + + as of this encounter Visit Diagnoses Not on filein this encounter"
--- OUTSIDE RECORDS SUMMARY | ~2017-07-18 | XMS | Encounter Summary ---
Demographics + + + | Address | [address] | | | [place] [address] | + + + | Home Phone | | + + + | Preferred Language | Unknown | + + + | Marital Status | | + + + | Restoration Affiliation | Unknown | + + + | Race | Unknown | + + + | Ethnic Group | Unknown | + + + Author + + + | Author | [facility] | | | and [place] | + + + | Organization | [facility] | | | and [place] [...] Team Providers + +------+ + | Care Dish Technician Name | Role | Phone | + +------+ + PCP | Unavailable | + +------+ + Reason for Visit + + + | Reason | Comments | + + + | Insurance | | | Authorization | | + + + Encounter Details +--------+ + + + + | Date | Type | Department | Care Team | Description | +--------+ + + + + | 04/24/ | Telephone | [facility] [place] | Osvaldo Jon, | Insurance | | 2018 | | NEUROSURGERY [address] | DO [address] | Authorization | | | | [address] | [address] [place], | | | | | [place] | [place] [address] | | | | | [address] | [phone] | | | | | [phone] | | | +--------+ + + + [...] | | | | | [address] [place], | | | | | | [place] [address] | | | | | | [phone] | | | | | | | | +--------+---------+ + + + as of this encounter Visit Diagnoses Not on filein this encounter"
--- OUTSIDE RECORDS SUMMARY | ~2017-07-18 | XMS | Encounter Summary ---
Demographics + + + | Address | [address] | | | [place] [address] | + + + | Home Phone | | + + + | Preferred Language | Unknown | + + + | Marital Status | | + + + | Sikhism Affiliation | Unknown | + + + | Race | Unknown | + + + | Ethnic Group | Unknown | + + + Author + + + | Author | [facility] | | | and [place] | + + + | Organization | [facility] | | | and [...] Team Providers + +------+ + | Care Tire Technician Name | Role | Phone | + +------+ + | Austin Handy DO | PCP | | + +------+ + Reason for Visit +---------+ + | Reason | Comments | +---------+ + | Post Op | 4W | +---------+ + Encounter Details +--------+---------+ + + + | Date | Type | Department | Care Team | Description | +--------+---------+ + + + | 07/11/ | Office | [facility] | SlimMitchell, | S/P lumbar fusion | | 2018 | Visit | NEUROSURGERY [address] | [place] [address] | (Primary Dx); Lumbar | | | | [address] | [address] [place] | radiculopathy | | | | [place], [place] | [place] [address] | | | | | [address] | [phone] | | | | | [phone] | | | +--------+---------+ + + + Social History [...] 07/11/2017899 PDT | + + + + in this encounter Functional Status + + + [...] + + + as of this encounter Instructions Patient Instructions - Malia Brock, Assistant Production Manager - 07/11/2017 0830 PDTIt was a pleasure to see you today. Here is what we discussed. We will get new x-rays in about 8 weeks. Continue to keep walking. This will be very helpful for you. When you are walking really wo rk on engaging your core. Let pain be your guide. If you are doing an activity that starts causing you pain back off and ease back into it slowly. We don't want you taking any risks that do not need to be take n. You may now slowly increase your lifting up to 15 pounds as tolerated. You may now reach ov erhead but it should only be 1-2 pounds. Please refrain from twisting for the next 8 weeks. In the meantime, you can also begin to wean out of your brace as instructed below. SPINE BRACE WEANING PROTOCOL (5 WEEKS) Below are instructions for weaning your brace. You can move through the weeks slower if yo u feel the need to do so, but the overall goal is to get you out of the brace slowly over e next several weeks. WEEK 1 If you have been using your brace for activities like sleeping, showering, do not use the b race for these activities any longer but continue using it for everything else. WEEK 2 Stop wearing your brace for sitting and short distance walking. You should use the brace f or anything more involved. WEEK 3 Stop using the brace for medium distance walking. You can bend and twist your back but sti ll proceed slowly with these activities. WEEK 4 Stop using the brace for everything but the most difficult tasks. You should now be able to go on long walks and lift more weight as directed. Add more bending and twisting as tolera patricia. WEEK 5 Stop using the brace for daily use. I would encourage you to use the brace in the future f or activities that you know might aggravate your back or cause pain. You should still work to strengthen your back and use good technique when lemon picker things and bending. in this encounter Progress Notes Mitchell Smalls PA - 07/11/2017 0830 PDTFormatting of this note may be different from e original. ABEL Rob [address] [facility], [address] [place], [place] [address] FAX: [phone] NEUROSURGERY FOLLOW-UP CHIEF COMPLAINT: Chief Complaint Patient presents with Post Op 4W HISTORY OF PRESENT ILLNESS: The patient is a 71 y.o. male that had a lumbar fusion for leeann k pain, left upper leg and groin symptoms 06/11/17. He returns and overall is doing well. L eft foot strength is continuing to improve since surgery however he has not regained all of his sensation in his leg. He does occasionally get electric shocks that run down his leg so he thinks that his sensation is trying to come back. The patient has been walking as much as directed. He is not taking pain medications at is point. He started taking some muscle relaxer's yesterday for some neck pain he is experie ncing. The patient has had no issues with his surgical site. CURRENT MEDICATIONS: Current Outpatient Prescriptions Medication Sig [...] PO) Take 1 tablet by mouth Daily. [place]-3 Fatty Acids (FISH OIL) 1200 MG CAPS [...] smoking history. He has never used smokeless tobac co. He reports that he drinks alcohol. He reports that he does not use drugs. INTERIM PHYSICAL EXAMINATION: Blood pressure 110/67, pulse 77, height 1.753 m (5' 9"), weight 121.6 kg (268 lb). Body mas s index is 39.58 kg/m. REVIEW OF SYSTEMS GENERALLY: No fever, no night sweats, no anemia, no fatigue, no recent profound weight ch anges. EYES: No eye problems, no use of corrective lenses, no eye injury, no double vision, no bl indness. EARS, NOSE, AND THROAT: No changes in taste or smell, no hearing difficulty, no ringing in the ears, no ear drainage, no dizziness, no voice changes, no difficulty swallowing, no sig nificant snoring, no sleep apnea, no sinus problems, no major dental work. NEUROLOGICALLY: Please see the review of systems discussed above in the history of present illness. In addition, the patient has numbness/pain of legs, weakness, pain in neck. PSYCHIATRIC: No depression, no sleep disorders, no anxiety, no bipolar disorder, no psycho tic episodes. CARDIOVASCULAR: No heart attacks, no heart [...] no abdominal pain, no ulcers. KIDNEY DISEASE: No urinary frequency, no painful or difficult urination, no incontinence. ENDOCRINE: No diabetes, no thyroid disease, no osteopenia or osteoporosis, no breast drain age. SKIN: No breast lumps, no skin changes, no rashes, no itches. HEMATOLOGIC/LYMPHATIC: No enlarged lymph nodes, no easy or unusual bleeding, no personal h istory of cancer. RHEUMATOLOGIC: No joint arthritis, + rheumatoid arthritis. GENERAL: Red [place] is in no acute distress with unlabored respirations. SPINE: The patient s incisions are healing well without drainage, significant erythema, o r discharge. EXTREMITIES: No lower extremity edema. NEUROLOGICAL EXAMINATION: MENTAL STATUS: The patient is awake, alert, and oriented. He follows simple and complex commands MOTOR EXAM: Motor strength is 5/5. This is improved when compared to the preoperative exam . SENSORY EXAM: The sensory examination is improved when compared to the preoperative exam. RADIOGRAPHIC REVIEW: The patient s x-rays show stable instrumentation and alignment and were reviewed with the patient today. There have been no interval changes since the immediate postoperative films . Complete fusion has not yet occurred, but this is normal and would not be expected at thi s time. ASSESSMENT: Encounter Diagnosis Name Primary? S/P lumbar fusion Yes Past Medical History: Diagnosis Date Abnormal weight gain Actinic keratosis 09/16/2011 Right Acute epididymitis Left Acute upper respiratory infection 05/28/2012 Anterior knee pain, right Anxiety Basal cell carcinoma of left yarsani region 09/16/2011 Benign neoplasm of skin 03/18/2012 Bilateral hearing loss Breast lump 11/23/2010 Right Bursitis of right knee Cataract Cough 05/28/2012 Degenerative joint disease of hand 10/15/2011 Dermatophytosis 03/05/2011 Displacement of lumbar intervertebral disc without myelopathy Elevated blood pressure reading Fatigue Gastroesophageal reflux disease Hand pain 09/16/2011 Hard of hearing bilateral hearing aids Hyperlipidemia 11/23/2010 Hypertensive disorder Impotence Infection of [...] left hip joint Persistent insomnia Psoriasis 11/25/2011 Sleep apnea no CPAP Stress Urethritis 12/15/2012 Urinary tract infectious disease 11/17/2012 Vertical vertigo Vesicular eczema of hands and feet 06/04/2011 Wears partial dentures upper PLAN: Overall, the patient is doing well. The patient can see some improvements but continues to recover from recent surgery. We discussed increasing the patient s activities now allowing 15 pound lifting. The trish ent will begin the process of brace weaning as directed. We would like the patient to advan aldo slowly with this process and discussed this at length during today's visit. I would also like the patient to continue with postoperative rehabilitation and to advance with therapy as tolerated. detention pain medication does not appear to be needed. We are hoping to see improvement over the coming weeks to months and plan to continue to fo llow this patient. The patient will follow-up in clinic in around 8 weeks for re-evaluation . I, ABEL Rob, personally performed the services described in this documentation , as scribed by Malia Brock in my presence, and it is both accurate and complete. ABEL Rob 07/11/2017 ELECTRONICALLY SIGNED BY: ABEL Rob, 07/11/2017 9:36 in this encounter Plan of Treatment +--------+---------+ [...] [place], | | | | | | [place] [address] | | | | | | [phone] | | | | | | | | +--------+---------+ + + + + +--------+ + + | Name | Priori | Associated Diagnoses | Order Schedule | | | ty | | | + +--------+ + + | XR Lumbar Spine 2 or 3 Vw | Routin | S/P lumbar fusion | Expected: | | | e | | 09/10/2017, Expires: | | | | | 07/11/2018 | + +--------+ + + as of this encounter Visit Diagnoses + + | Diagnosis | + + | S/P lumbar fusion - Primary | + + | Arthrodesis status | + + | Lumbar radiculopathy | + + | Thoracic or lumbosacral neuritis or radiculitis, unspecified | + +
--- OUTSIDE RECORDS SUMMARY | ~2017-07-18 | XMS | Encounter Summary ---
Demographics + + + | Address | [address] | | | [place] [address] | + + + | Home Phone | | + + + | Preferred Language | Unknown | + + + | Marital Status | | + + + | Gnosticist Affiliation | Unknown | + + + | Race | Unknown | + + + | Ethnic Group | Unknown | + + + Author + + + | Author | [facility] | | | and [place] | + + + | Organization | [facility] | | | and [...] Team Providers + +------+ + | Care Escalator Service Mechanic Name | Role | Phone | + [...] + + | 07/16/ | Telephone | [facility] [place] | Osvaldo Jon, | Medication Question | | 2018 | | NEUROSURGERY [address] | DO [address] | | | | | [address] | [address] [place], | | | | | [place], [place] | [place] [address] | | | | | [address] | [phone] | | | | | [phone] | | | +--------+ + + + [...] [place], | | | | | | [place] [address] | | | | | | [phone] | | | | | | | | +--------+---------+ + + + as of this encounter Visit Diagnoses Not on filein this encounter"
--- OUTSIDE RECORDS SUMMARY | ~2017-07-18 | XMS | Encounter Summary ---
Demographics + + + | Address | [address] | | | [place] [address] | + + + | Home Phone | | + + + | Preferred Language | Unknown | + + + | Marital Status | | + + + | Islam Affiliation | Unknown | + + + | Race | Unknown | + + + | Ethnic Group | Unknown | + + + Author + + + | Author | [facility] | | | and [place] | + + + | Organization | [facility] | | | and [place] [...] Team Providers + +------+ + | Care Breakdown Worker Name | Role | Phone | + +------+ + PCP | Unavailable | + +------+ + Encounter Details +--------+ + + + + | Date | Type | Department | Care Team | Description | +--------+ + + + + | 05/21/ | Preadmit | [facility] | Osvaldo Jon, | Preoperative | | 2018 | Visit | MED CTR [facility] | DO [address] | clearance (Primary | | | | CLINIC [address] | [address] [place], | Dx); Other | | | | [place] | [place] [address] | intervertebral disc | | | | [address] | [phone] | displacement, lumbar | | | | [...] | | | hyperlipidemia type | +--------+ + + + + Social [...] [place], | | | | | | [place] [address] | | | | | | [phone] | | | | | | | | +--------+---------+ + + + as of this encounter Results CBC with Differential (05/21/2017 1548) + +-------+ [...] | + + + | Blood | [facility] | | | [place] [address] | + + + Culture, MRSA (05/21/2017 1548) + + + + | Component | Value | Ref Range | + + + + | Culture | Negative for MRSA by chromogenic agar | | | | method | | + + + + + + + | Specimen | Performing Laboratory | + + + | Respiratory - Nares | [facility] [place] | | | [place] [address] | + + + ECG 12 lead (05/21/2017 154) + + +------ -----+ | Component | [...] GINA VAZQUEZ MD | | | | ([id number]) on 05/22/2017 7:06:50 AM | | | |Confirmed by GINA VAZQUEZ MD ([id number]) on 05/22/2017 7:06:50 AM | | | | | | + + +------ -----+ + + + | Specimen | Performing Laboratory | + + + | | [facility] | + + + in this encounter Visit Diagnoses + + | Diagnosis | + + | Preoperative clearance - Primary | + + | Preoperative examination, unspecified | + + | Other intervertebral disc displacement, lumbar region | + + | Lumbar radiculopathy | + + | Thoracic or lumbosacral neuritis or radiculitis, unspecified | + + | Low back pain, unspecified back pain laterality, unspecified chronicity, with sciatica | | presence unspecified | + + | Hypertension, unspecified type | + + | Hyperlipidemia, unspecified hyperlipidemia type | + + Admitting Diagnoses + + | Diagnosis | + + | Pre-operative clearance | + + | Preoperative examination, unspecified | + +"
--- OUTSIDE RECORDS SUMMARY | ~2017-07-18 | XMS | Encounter Summary ---
Demographics + + + | Address | [address] | | | [place] [address] | + + + | Home Phone | | + + + | Preferred Language | Unknown | + + + | Marital Status | | + + + | Church Affiliation | Unknown | + + + | Race | Unknown | + + + | Ethnic Group | Unknown | + + + Author + + + | Author | [facility] | | | and [place] | + + + | Organization | [facility] | | | and [...] Team Providers + +------+ + | Care Soft Sugar Cutter Name | Role | Phone | + +------+ + | Austin Handy DO | PCP | | + +------+ + Encounter Details +--------+ + + + + | Date | Type | Department | Care Team | Description | +--------+ + + + + | 06/13/ | Hospital | [facility] | Nicole Lewis, | | | 2018 | Encounter | MED CTR THERAPY OT | EPHRAIM Givens, | | | | | ACUTE [address] | [place] | | | | | [place] | Student | | | | | [address] | | | | | | [phone] | | | +--------+ + + + [...] + + + +---------+ + + | [place]-3 Fatty | Take 2,400 mg by | [...] | Visit | | DO [address] | | | | | | [address] [place], | | | | | | [place] [address] | | | | | | [phone] | | | | | | | | +--------+---------+ + + + as of this encounter Visit Diagnoses Not on filein this encounter"
--- OUTSIDE RECORDS SUMMARY | ~2017-07-18 | XMS | Encounter Summary ---
Demographics + + + | Address | [address] | | | [place] [address] | + + + | Home Phone | | + + + | Preferred Language | Unknown | + + + | Marital Status | | + + + | Yazidi Affiliation | Unknown | + + + | Race | Unknown | + + + | Ethnic Group | Unknown | + + + Author + + + | Author | [facility] | | | and [place] | + + + | Organization | [facility] | | | and [place] | [...] Team Providers + +------+ + | Care Hat And Cap Parts Cutter Hand Name | Role | Phone | + +------+ + PCP | Unavailable | + +------+ + Reason for Visit + + + | Reason | Comments | + + + | Pre-op Exam | | + + + Encounter Details +--------+ + + + + | Date | Type | Department | Care Team | Description | +--------+ + + + + | 05/21/ | Clinical | [facility] [place] | Osvaldo Jon, | Lumbar radiculopathy | | 2018 | Support | NEUROSURGERY [address] | DO [address] | (Primary Dx); Low | | | | [address] | [address] [place], | back pain, | | | | [place], [place] | [place] [address] | unspecified back | | | | [address] | [phone] | pain laterality, | | | | [phone] | | unspecified | | | | [...] | | | without myelopathy | +--------+ + + + + Social [...] + + + | Blood Pressure | 149/71 | 05/21/2017 1425 PST | + + + + | Pulse | 64 | 05/21/2017 1425 PST | + + + + | Temperature | - | - | + + + + | Respiratory Rate | - | - | + + + + | Oxygen Saturation | - | - | + + + + | Inhaled Oxygen | - | - | | Concentration | | | + + + + | Weight | 124.3 kg (274 lb 0.5 | 05/21/20171424 PST | | | oz) | | + + + + | Height | 175.3 cm (5' 9") | 05/21/20171424 PST | + + + + | Body Mass Index | 40.47 | 05/21/20171424 PST | + + + + in this encounter Progress Notes Laurie Ty RN - 05/21/2017 1400 PSTPatient in office for pre op appointment. Patient advised at this time to stop: vit c, multi vit, omega 3, piroxicam (7 days prior). Patient v erbalized understanding. All questions answered at this time. I Laurie Ty RN witnessed the patient leaving the office with a LSO which was provided by a telemarketing representative of [email or web address]. ANGIE Jenkins Kathryn I, Fire Prevention Engineer - 05/21/2017 1400 PSTREVIEW OF SYSTEMS GENERALLY: No fever, no night sweats, no anemia, no fatigue, no recent profound weight ch anges. EYES: No eye problems, no use of corrective lenses, no eye injury, no double vision, no bl indness. EARS, NOSE, AND THROAT: No changes in taste or smell, no hearing difficulty, + ringing in the ears, no ear drainage, + dizziness, no voice changes, no difficulty swallowing, + signif icant snoring, no sleep apnea, no sinus problems, no major dental work. NEUROLOGICALLY: Please see the review of systems discussed above in the history of present illness. In addition, the patient has numbness/pain of arms, and legs, weakness, coordinat ion difficulty, muscle aching, back injury, pain in back. PSYCHIATRIC: No depression, no sleep disorders, no [...] breast drain age. SKIN: No breast lumps, + skin changes, + rashes, no itches. HEMATOLOGIC/LYMPHATIC: No enlarged lymph nodes, no easy or unusual bleeding, no personal h istory of cancer. RHEUMATOLOGIC: + joint arthritis, no rheumatoid arthritis. in this encounter Plan of Treatment +--------+---------+ [...] [place], | | | | | | [place] [address] | | | | | | [phone] | | | | | | | | +--------+---------+ + + + as of this encounter Visit Diagnoses + + | Diagnosis | + + | Lumbar radiculopathy - Primary | + + | Thoracic or lumbosacral neuritis or radiculitis, unspecified | + + | Low back pain, unspecified back pain laterality, unspecified chronicity, with sciatica | | presence unspecified | + + | Neurogenic claudication | + + | Spinal stenosis, lumbar region, with neurogenic claudication | + + | Lumbar spondylosis | + + | Lumbosacral spondylosis without myelopathy | + + | Back pain, unspecified back location, unspecified back pain laterality, unspecified | | chronicity | + + | Acute back pain with sciatica, left | + + | Left leg weakness | + + | Other musculoskeletal symptoms referable to limbs | + + | Lumbar disc herniation | + + | Displacement of lumbar intervertebral disc without myelopathy | + + | Displacement of lumbar intervertebral disc without myelopathy | + + | Spinal stenosis of lumbar region with neurogenic claudication | + + | Spinal stenosis, lumbar region, with neurogenic claudication | + + | Chronic midline low back pain with left-sided sciatica | + +
--- OUTSIDE RECORDS SUMMARY | ~2017-07-18 | XMS | Encounter Summary ---
Demographics + + + | Address | [address] | | | [place] [address] | + + + | Home Phone | | + + + | Preferred Language | Unknown | + + + | Marital Status | | + + + | Zoroastrianism Affiliation | Unknown | + + + | Race | Unknown | + + + | Ethnic Group | Unknown | + + + Author + + + | Author | [facility] | | | and [place] | + + + | Organization | [facility] | | | and [place] [...] Team Providers + +------+ + | Care Insulation Engineman Name | Role | Phone | + +------+ + | Austin Handy DO | PCP | | + +------+ + Reason for Visit + + + | Reason | Comments | + + + | Procedure | Scheduling | + + + Encounter Details +--------+ + + + + | Date | Type | Department | Care Team | Description | +--------+ + + + + | 05/01/ | Telephone | [facility] [place] | Osvaldo Jon, | Procedure | | 2018 | | NEUROSURGERY [address] | DO [address] | (Scheduling ) | | | | [address] | [address] [place], | | | | | [place], [place] | [place] [address] | | | | | [address] | [phone] | | | | | [phone] | | | +--------+ + + + [...] | | | | | | [place] [address] | | | | | | [phone] | | | | | | | | +--------+---------+ + + + as of this encounter Visit Diagnoses Not on filein this encounter"
--- OUTSIDE RECORDS SUMMARY | ~2017-07-18 | XMS | Encounter Summary ---
Demographics + + + | Address | [address] | | | [place] [address] | + + + | Home Phone | | + + + | Preferred Language | Unknown | + + + | Marital Status | | + + + | Rastafarian Affiliation | Unknown | + + + | Race | Unknown | + + + | Ethnic Group | Unknown | + + + Author + + + | Author | [facility] | | | and [place] | + + + | Organization | [facility] | | | and [place] [...] Team Providers + +------+ + | Care Utilities Operator Name | Role | Phone | [...] | Osvaldo Villar DO | [address] | | | | | | [address] | [place], | | | | | | [address] | [place] | | | | | | [address] | [address] | | | | | | [place], | Phone: | | | | | | [place] [address] | [phone] | | | | | | Phone: | Fax: | | | | | | [phone] | [phone] | | | | | | Fax: | | | | | | | [phone] | | +--------+--------+ + + + + Encounter Details +--------+ + + + + | Date | Type | Department | Care Team | Description | +--------+ + + + + | 04/22/ | Hospital | [facility] | Osvaldo Jon, | Back pain, | | 2018 | Encounter | MED CTR XRAY [address] | DO [address] | unspecified back | | | | [place] | [address] [place], | location, | | | | [place] [address] | [place] [address] | unspecified back | | | | [phone] | [phone] | pain laterality, | | | | [...] | | + + +-------+---------+--------+ + | [place]-3 Fatty | Take 2,400 mg by | [...] [place], | | | | | | [place] [address] | | | | | | [phone] | | | | | | | [...]
--- OUTSIDE RECORDS SUMMARY | ~2017-07-18 | XMS | Encounter Summary ---
Demographics + + + | Address | [address] | | | [place] [address] | + + + | Home Phone | | + + + | Preferred Language | Unknown | + + + | Marital Status | | + + + | Jain Affiliation | Unknown | + + + | Race | Unknown | + + + | Ethnic Group | Unknown | + + + Author + + + | Author | [facility] | | | and [place] | + + + | Organization | [facility] | | | and [...] Team Providers + +------+ + | Care Professional Shopper Name | Role | Phone | + [...] [place], | | | | | [place], [place] | [place] [address] | | | | | [address] | [phone] | | | | | [phone] | | | +--------+ + + + [...] [place], | | | | | | [place] [address] | | | | | | [phone] | | | | | | | | +--------+---------+ + + + as of this encounter Visit Diagnoses Not on filein this encounter"
--- OUTSIDE RECORDS SUMMARY | ~2017-07-18 | XMS | Encounter Summary ---
Demographics + + + | Address | [address] | | | [place] [address] | + + + | Home Phone | | + + + | Preferred Language | Unknown | + + + | Marital Status | | + + + | Restorationist Affiliation | Unknown | + + + | Race | Unknown | + + + | Ethnic Group | Unknown | + + + Author + + + | Author | [facility] | | | and [place] | + + + | Organization | [facility] [place] | | | and [place] | [...] Team Providers + +------+ + | Care Safety Consultant Name | Role | Phone | + [...] | | | | | | | [place] | | | | | | | ARTHRODESIS | | | | | | | POSTERIOR/PO | | | | | | | STEROLATERAL | | | | | | | LUMBAR [place] | | | | | | | LUMBAR SPINE | | | | | | | | | | | | | | FUSION,ANTER | | | | | | | APPRCH [place] | | | | | | | [...] | | | | | | [place] | | | | | | | [...] + + | 06/11/ | Hospital | [facility] | Osvaldo Jon, | S/P lumbar fusion | | 2018 - | Encounter | [facility] | DO [address] | (Primary Dx) | | | | [address] | [address] [place] [address], | | | 06/13/ | | [place] [address] | [place] [address] | | | 2018 | | [phone] | [phone] | | | | | | | [...] + + + | Blood Pressure | 138/71 | 06/13/2017752 PDT | + + + + | Pulse | 81 | 06/13/2017752 PDT | + + + [...] + | Weight | 121.6 kg (268 lb 1.3 | 06/11/20171009 PDT | | | oz) | | + + + + | Height | 175.3 cm (5' 9") | 06/11/20170 PDT | + + + + | Body Mass Index | 39.59 | 06/11/20170 PDT | + + + + in [...] + + + as of this encounter Discharge Summaries Mitchell Smalls PA - 06/13/2017 0743 PDTFormatting of this note may be different from th e original. DISCHARGE SUMMARY Pt. Name/Age/: Red Taylor 71 y.o. 1945 Date of Admission: 06/11/2017 Date of Discharge: 06/13/2017 Admitting Physician: Osvaldo Jon DO PCP: Austin Handy Discharging Physician: ABEL Rob Primary Discharge Dx: <principal problem not specified>L4-L5 spondylolisthesis Secondary Discharge Dx: Patient Active Problem List Diagnosis Other intervertebral disc displacement, lumbar region Lumbar radiculopathy Low back pain Hypertensive disorder Hyperlipidemia S/P lumbar fusion Reason for Admission (Brief): The patient is a 71 y.o.malewith the complaint of back symptoms that began many years ago. He previously underwent a lumbar laminectomy [address] Aguirre in [place] and 30 years ago by someone in [place], [place]. The patien t describes waking up in December 2016 with new, severe left leg symptoms. The symptoms hav e been unchanged. Herates the back pain as moderate.The symptoms are intermittent. Hedescribes the pain as aching and stabbing. The patient describes leg symptoms that occur on left side. The leg symptoms account for greater than or equal to 90%of hissymptoms. The leg symptoms are constantand the sym ptoms travels from the back around the front of his leg into his groin and medial thigh. The patient also describes shooting pain, numbness, and weakness. He used to be able to walk as far as he wanted, not he can only walk 200 yards before having to sit. He has to use his arms to lift his leg into the car currently. This is frustrating for him as he used to be v jonathan active. Hospital Course, including Complications: The patient was admitted for planned surgery. He had a lumbar fusion completed without com plication. After surgery, there were no events. He mobilized well. The patient was discha rged home and will follow-up as an outpatient. There were no cardiac issues, pulmonary issues, evidence of DVT or infection. Medications Reconciled upon Discharge are: Discharge Medications New Medications Details diazePAM 5 mg tablet Take 0.5-1 tablets by mouth every 8 hours as needed for Muscle spasms. aka: VALIUM lactulose 10 g/15 mL solution Take 30 mLs by mouth 2 times daily. For constipation oxyCODONE 10 MG Tabs Take 1-2 tablets by mouth every 4 hours as needed. Unchanged Medications Details CENTRUM SILVER PO Take 1 tablet by mouth Daily. cyanocobalamin 1000 MCG tablet Take 1,000 mcg by mouth Daily. aka: VITAMIN B-12 ergocalciferol 50,000 units capsule Take 50,000 Units by mouth Once a week. aka: VITAMIN D-2 finasteride 5 mg tablet Take 5 mg by mouth Daily. aka: PROSCAR Fish Oil 1200 MG Caps Take 2,400 mg by mouth Daily. FLAXSEED OIL PO Take by mouth. melatonin 5 mg tablet Take 5 mg by mouth nightly as needed for Insomnia. omeprazole 20 mg Tbec Take 20-40 mg by mouth every morning (before breakfast). aka: priLOSEC piroxicam 20 MG capsule Take 20 mg by mouth Daily. aka: FELDENE simvastatin 20 mg tablet Take 20 mg by mouth nightly. aka: ZOCOR tamsulosin 0.4 mg Caps Take 0.4 mg by mouth Daily. aka: FLOMAX vitamin C 1000 MG tablet Take 1,000 mg by mouth Daily. Condition on Discharge: Stable Follow-Up Plans: Follow-up: 3-4 weeks for routine follow-up. Follow-up with primary care physician as needed. Diet: Resume home diet Activity: Continue to follow guidelines and precautions as previously discussed. Bracing: B Brace Electronically signed by: Mitchell Smalls, 06/13/2017 7:45 [facility] in this encounter Discharge Instructions Mitchell Smalls, PA - 06/13/2017Discharge Instructions for Lumbar Fusion You had a lumbar fusion. During this procedure, your doctor locked together (fused) some of the bones in your spine. This limits the movement of these bones to help relieve your pain. Here s what you need to know about home care following a spinal fusion. Activity Arrange your household to keep the items you need within reach. Remove electrical cords, throw rugs, and anything else that may cause you to fall. Use a walkeror handrails until your balance, flexibility, and strength improve. And re member to ask for help from others when you need it. Free up your hands so that you can use them to keep balance. Use a kermit pack, apron, or pockets to carry things. Be sure not to carry too much at once. Don t bend or twist at the waist, or raise your hands over your head for the first two weeks after your surgery. Don t lift anything heavier than 5 pounds for the first four weeks after surgery. Don t sit for more than30 to 45 minutes at a time. Take frequent short walks. They a re the velasquez to your recovery. As your back feels better please gradually increase the distanc e you walk as discussed with your provider. Don t drive until your doctor says it s OK. And never drive while you are taking opi oid pain medication. Nap if you are tired, but don t stay in bed all day. Use chairs with arms. The arms make it easier for you to stand up and sit down. If you have not yet received instructions about physical therapy, ask your doctor about them. Incision care Check your incision daily for redness, tenderness, or drainage. Don t soak your wound in water (no hot tubs, bathtubs, swimming pools) until your doct or says it s OK. As long as you keep your incision dry you can shower as desired. After 5 days you may le t shower water run over the incision but do not submerse the incision under water until afte r you see your provider. Gently pat the incision dry. Don t rub it, or apply creams or lot ions. And if you feel unsteady while standing to shower, use a shower stool or chair. Other home care Use nonslip bath mats, grab bars, an elevated toilet seat, and a shower chair in your ba throom. Take your medication exactly as directed. Don t take nonsteroidal anti-inflammatory medications (NSAIDs), such as ibuprofen. The y may delay or prevent proper fusion of the spine. If you smoke, stop! This will be one of the most important things you can do to help you recover from surgery. Wear your back brace, if one was prescribed, as directed by your doctor. Follow-up Most patients will be seen approximately 4 weeks after surgery. Be sure to get your 1 mo nth post op x-rays prior to your 1 month post op appointment before your appointment. [id number] [place] [id number]. All [facility] reserved. This information is not intended as a substitute for professional medical care. Always follow your healthcare professional's instructions. in this encounter Medications at Time of Discharge [...] + + + +---------+ + + | [place]-3 Fatty | Take 2,400 mg by | [...] +---------+ + + as of this encounter Progress Notes Mitchell Smalls PA - 06/13/2017 0730 PDTFormatting of this note may be different from jannet schofield. [facility] NEUROSURGERY PROGRESS NOTE PATIENT NAME: Red Taylor AGE: 71 y.o. DATE OF SERVICE: 06/13/2017 7:31 S: The patient c/o manageable back pain. The patient has been mobilizing well. The leg sy mptoms are at improved from preoperatively. He still feels some numbness over his left lat eral thigh but pain is gone and he thinks his leg is stronger. The patient has been voiding and is passing flatus. O: CURRENT MEDICATIONS: Current Facility-Administered Medications Medication Dose Route Frequency Provider Last Rate Last Dose acetaminophen (TYLENOL) tablet 650 mg 650 mg Oral Q4H PRN ABEL Green 650 m g at 06/12/17 1641 atorvaSTATin (LIPITOR) tablet 10 mg 10 mg Oral Nightly ABEL Green 10 mg at 06/12/17 210 bisacodyl (DULCOLAX) suppository 10 mg 10 mg Rectal Daily PRN ABEL Green calcium carbonate (TUMS) chewable tablet 1,000 mg 1,000 mg Oral Q2H PRN ABEL Gilman 1,000 mg at 06/12/17 044 diazePAM (VALIUM) tablet 2.5-5 mg 2.5-5 mg Oral Q6H PRN ABEL Green 5 mg at 06/12/17 09 diphenhydrAMINE (BENADRYL) injection 12.5 mg 12.5 mg Intravenous Q4H PRN ABEL Fairbanks Or diphenhydrAMINE (BENADRYL) tablet 25 mg 25 mg Oral Q4H PRN ABEL Green Or diphenhydrAMINE (BENADRYL) 12.5 mg/5 mL liquid 25 mg 25 mg Oral Q4H PRN ABEL Gilman docusate sodium (COLACE) capsule 100 mg 100 mg Oral BID ABEL Green 100 mg at 06/12/17 210 enalaprilat (VASOTEC) injection 1.25 mg 1.25 mg Intravenous Q6H PRN ABEL Green finasteride (PROSCAR) tablet 5 mg 5 mg Oral Daily ABEL Green 5 mg at 06/12 09 labetalol (TRANDATE) 5 mg/mL injection 10 mg 10 mg Intravenous Q10 Min PRN ABEL Jacobo 10 mg at 06/12/17 0024 lactulose liquid 30 mL 30 mL Oral Daily PRN ABEL Green magnesium hydroxide (MILK OF MAGNESIA) 400 mg/5 mL suspension 30 mL 30 mL Oral BID PRN ABEL Green melatonin tablet 4.5 mg 4.5 mg Oral Nightly PRN ABEL Green menthol (HALLS COUGH DROP) lozenge 1 lozenge 1 lozenge Buccal Q2H PRN ABEL Green methocarbamol (ROBAXIN) tablet 1,500 mg 1,500 mg Oral Q6H PRN ABEL Green 1 ,500 mg at 06/13/17 0609 metoclopramide (REGLAN) tablet 10 mg 10 mg Oral Q4H PRN ABEL Green morphine injection 2-6 mg 2-6 mg Intravenous Q4H PRN ABEL Green 2 mg at 2351 ondansetron (ZOFRAN ODT) disintegrating tablet 4 mg 4 mg Oral Q6H PRN ABEL Green ondansetron (ZOFRAN) injection 4 mg 4 mg Intravenous Q6H PRN ABEL Green oxyCODONE (ROXICODONE) tablet 5-20 mg 5-20 mg Oral Q4H PRN ABEL Green 20 m g at 06/13/17 0533 pantoprazole (PROTONIX) DR tablet 40 mg 40 mg Oral QAM AC ABEL Green 40 mg at 06/13/17 0606 phenol (CHLORASEPTIC) spray 1-2 spray 1-2 spray Mouth/Throat Q3H PRN ABEL Green polyethylene glycol (MIRALAX) powder 17 g 17 g Oral Daily ABEL Green 17 g at 06/12/17 0958 prochlorperazine (COMPAZINE) tablet 5 mg 5 mg Oral Q6H PRN ABEL Green senna (SENOKOT) tablet 8.6 mg 8.6 mg Oral BID ABEL Green 8.6 mg at 8 2104 sodium chloride 0.9% (NS) infusion Intravenous Continuous ABEL Green Stop ped at 06/12/17 1000 tamsulosin (FLOMAX) capsule 0.4 mg 0.4 mg Oral Daily ABEL Green 0.4 mg at 06/12/17 1005 ALLERGIES: Allergies Allergen Reactions Cefazolin Nausea And Vomiting PHYSICAL EXAMINATION: Temp: [36.1 C (97 F)-37.3 C (99.1 F)] 37.3 C (99.1 F) Pulse: [77-94] 84 Resp: [13-18] 13 BP: (126-165)/(60-79) 134/67 Intake/Output Summary (Last 24 hours) at 06/13/17 0731 Last data filed at 06/13/17 0542 Gross per 24 hour Intake 1470 ml Output 2365 ml Net -895 ml GENERAL: Red Taylor is in no acute distress with unlabored respirations. HEENT: HEAD/FACE: EYES: Normocephalic and atraumatic. There are no areas of recent trauma. Normal sclerae without icterus. CHEST: Clear. HEART: Regular. ABDOMEN Soft and nondistended. EXTREMITIES: No edema or swelling. SCD's BACK: The back incisions are dressed and a drain is in place with expected output. NEUROLOGICAL EXAM: MENTAL STATUS: The patient is awake, alert, and oriented. He follows simple and complex commands. He speech is fluent, his comprehends speech well, and his repeats well. He has no apparent deficits with short or long term care pharmacist memory. MOTOR EXAM: Motor strength is stable SENSORY EXAM: Sensory exam is stable 24 HOUR LABS: All Component Based Labs None ASSESSMENT: NEUROSURGICAL DIAGNOSES: S/p lumbar decompression HOSPITAL/GENERAL DIAGNOSES: Past Medical History: Diagnosis Date Abnormal weight gain Actinic keratosis 09/16/2011 Right Acute epididymitis Left Acute upper respiratory infection 05/28/2012 Anterior knee pain, right Anxiety Basal cell carcinoma of left baptism region 09/16/2011 Benign neoplasm of skin 03/18/2012 [...] feet 06/04/2011 Wears partial dentures upper PLAN: S/p lumbar fusion, Hospital day 2 - Neurologically stable and pain control is appropriate. - Medically stable - Mobilize, PT/OT - SCD's - Patient is having adequate bowel function without any concerns. They were counseled that full bowel function may not return for a few days - Drain output is low and it can be removed now - Disp: Home likely today if meets goals ELECTRONICALLY SIGNED BY: ABEL Rob, 06/13/2017 7:31 Antonette Cardona PA-C - 06/12/2017 0729 PDTFormatting of this note may be different f rom the original. [facility]UR[facility] PROGRESS NOTE PATIENT NAME: Red Taylor AGE: 71 y.o. DATE OF SERVICE: 06/12/2017 7:29 S: The patient c/o manageable back pain. The patient has been mobilizing well. Leg numbne ss has improved from pre-operative. The patient has been voiding but no flatus or BM. O: CURRENT MEDICATIONS: Current Facility-Administered Medications Medication Dose Route Frequency Provider Last Rate Last Dose acetaminophen (TYLENOL) tablet 650 mg 650 mg Oral Q4H PRN ABEL Green atorvaSTATin (LIPITOR) tablet 10 mg 10 mg Oral Nightly ABEL Green 10 mg at 06/11/172019 bisacodyl (DULCOLAX) suppository 10 mg 10 mg Rectal Daily PRN ABEL Green calcium carbonate (TUMS) chewable tablet 1,000 mg 1,000 mg Oral Q2H PRN ABEL Gilman 1,000 mg at 06/12/17 0442 diazePAM (VALIUM) tablet 2.5-5 mg 2.5-5 mg Oral Q6H PRN ABEL Green diphenhydrAMINE (BENADRYL) injection 12.5 mg 12.5 mg Intravenous Q4H PRN ABEL Fairbanks Or diphenhydrAMINE (BENADRYL) tablet 25 mg 25 mg Oral Q4H PRN ABEL Green Or diphenhydrAMINE (BENADRYL) 12.5 mg/5 mL liquid 25 mg 25 mg Oral Q4H PRN ABEL Gilman docusate sodium (COLACE) capsule 100 mg 100 mg Oral BID ABEL Green 100 mg at 06/11/172019 enalaprilat (VASOTEC) injection 1.25 mg 1.25 mg Intravenous Q6H PRN ABEL Green finasteride (PROSCAR) tablet 5 mg 5 mg Oral Daily ABEL Green labetalol (TRANDATE) 5 mg/mL injection 10 mg 10 mg Intravenous Q10 Min PRN ABEL Jacobo 10 mg at 06/12/17 0024 lactulose liquid 30 mL 30 mL Oral Daily PRN ABEL Green magnesium hydroxide (MILK OF MAGNESIA) 400 mg/5 mL suspension 30 mL 30 mL Oral BID PRN ABEL Green melatonin tablet 4.5 mg 4.5 mg Oral Nightly PRN ABEL Green menthol (HALLS COUGH DROP) lozenge 1 lozenge 1 lozenge Buccal Q2H PRN ABEL Green methocarbamol (ROBAXIN) tablet 1,500 mg 1,500 mg Oral Q6H PRN ABEL Green 1 ,500 mg at 06/11/17 2243 metoclopramide (REGLAN) tablet 10 mg 10 mg Oral Q4H PRN ABEL Green morphine injection 2-6 mg 2-6 mg Intravenous Q4H PRN ABEL Green 2 mg at 2371 ondansetron (ZOFRAN ODT) disintegrating tablet 4 mg 4 mg Oral Q6H PRN ABEL Green ondansetron (ZOFRAN) injection 4 mg 4 mg Intravenous Q6H PRN ABEL Green oxyCODONE (ROXICODONE) tablet 5-20 mg 5-20 mg Oral Q4H PRN ABEL Green 20 m g at 06/12/17 0540 pantoprazole (PROTONIX) DR tablet 40 mg 40 mg Oral QAM AC ABEL Green 40 mg at 06/12/17 0630 phenol (CHLORASEPTIC) spray 1-2 spray 1-2 spray Mouth/Throat Q3H PRN ABEL Green polyethylene glycol (MIRALAX) powder 17 g 17 g Oral Daily ABEL Green prochlorperazine (COMPAZINE) tablet 5 mg 5 mg Oral Q6H PRN ABEL Green senna (SENOKOT) tablet 8.6 mg 8.6 mg Oral BID ABEL Green 8.6 mg at 8 2020 sodium chloride 0.9% (NS) infusion Intravenous Continuous ABEL Green 50 mL/ hr at 06/11/17 2343 tamsulosin (FLOMAX) capsule 0.4 mg 0.4 mg Oral Daily ABEL Green 0.4 mg at 06/11/17 2244 ALLERGIES: Allergies Allergen Reactions Cefazolin Nausea And Vomiting PHYSICAL EXAMINATION: Temp: [36.2 C (97.2 F)-37.4 C (99.3 F)] 37.1 C (98.8 F) Pulse: [65-111] 99 Resp: [11-24] 16 BP: (106-176)/(46-158) 142/80 Intake/Output Summary (Last 24 hours) at 06/12/17 0729 Last data filed at 06/12/17 0723 Gross per 24 hour Intake 3302 ml Output 2565 ml Net 737 ml GENERAL: Red Taylor is in no acute distress with unlabored respirations. HEENT: HEAD/FACE: EYES: Normocephalic and atraumatic. There are no areas of recent trauma. Normal sclerae without icterus. CHEST: Clear. HEART: Regular. ABDOMEN Soft and nondistended. EXTREMITIES: No edema or swelling. SCD's BACK: The back incisions are dressed and a drain is in place with expected output. JANICE 140 c c NEUROLOGICAL EXAM: MENTAL STATUS: The patient is awake, alert, and oriented. He follows simple and complex commands. He speech is fluent, his comprehends speech well, and his repeats well. He has no apparent deficits with short or long term care pharmacist memory. MOTOR EXAM: Motor strength is 5/5 SENSORY EXAM: Sensory exam is improved 24 HOUR LABS: All Component Based Labs 06/11/17 1050 ABO B Antibody Screen Negative Rh Type Positive ASSESSMENT: NEUROSURGICAL DIAGNOSES: S/p lumbar decompression HOSPITAL/GENERAL DIAGNOSES: Past Medical History: Diagnosis Date Abnormal weight gain Actinic keratosis 09/16/2011 Right Acute epididymitis Left Acute upper respiratory infection 05/28/2012 Anterior knee pain, right Anxiety Basal cell carcinoma of left baptism region 09/16/2011 Benign neoplasm of skin 03/18/2012 [...] feet 06/04/2011 Wears partial dentures upper PLAN: S/p lumbar fusion, Hospital day 1 - Neurologically stable and pain control is appropriate. - Medically stable - Mobilize, PT/OT - SCD's - Working on BM/bowel function. Encouraged activity and medications to assist - Drain output is as expected. Continue drain - Disp: Likely home in 1-2 days ELECTRONICALLY SIGNED BY: Can Cardona PA-C, 06/12/2017 7:29Chioma Ellis, RN - 0 06/11/2017 1930 PDTPt arrived to the floor around 1800. Alert but c/o nausea after the ride u p to the floor. After transfer over to the bed nausea resolved and pt stated that he wanted to try to eat some food. Has a few bites of supper and did have a small amount of emesis abo ut 1830. Medicated for pain with IV morphine for c/o pain 08/07. Pt did ambulate to the [facility] 2 person [facility]. Gait slow but steady. No leg weakness noted. Stated that he does still have some residual numbness in legs but had this pre-op and seems to be somewhat improved. Pt is a B-brace. Incision sites are clean and dry with bandaids intact. JANICE drain in place. p resent at bedside and supportive of care. Cherelle Mackey, TAPE RECORDER MECHANIC - 06/11/2017 1845 PDTU nable to initiate pt eating throwing up.in this encounter Plan of Treatment +--------+---------+ + + + | Date | Type | Specialty | Care Team | Description | +--------+---------+ + + + | 09/17/ | Office | Neurosurgery | Osvaldo Jon, | | | 2017 | Visit | | DO [address] | | | | | | [address] [place], | | | | | | [place] [address] | | | | | | [phone] | | | | | | | | +--------+---------+ + + + as of this encounter Procedures + +--------+ + + + | [...] | | Jackso | | | n Sunspot | | | Frame | | | [...] | | Jackso | | | n Sunspot | | | Frame | | | , | | | Jackso | | | n | | | Frame | | | REP: | | | Giovanni | | | Russ | | | ; | | | Mir | | | Yan | | | | | | Maryan | | | ts: | | | Globus | | | Cage, | | | | | | Sextan | | | t | +---+--------+ in this encounter Results XR Lumbar Spine 2 or 3 Vw (06/11/2017 1745) + + | Narrative | + + | TWO VIEWS LUMBAR SPINE 06/11/2017 5:45 PM CLINICAL HISTORY: post op lumbar surgery | | COMPARISON: [facility] 22 FINDINGS: Five non rib-bearing, lumbar type | | vertebrae are visible. Interbody and posterior meng and pedicle screw fusion hardware is | | now present at L2-3 and appears intact and well seated. Vertebral height is | | maintained. There is similar disc space narrowing and mild anterolisthesis at L4-5 | | with multilevel facet hypertrophy again evident as well. The sacroiliac joints and | | imaged sacrum, bony pelvis and lower ribs are unremarkable. A surgical drain is | | present in the left dorsal lumbar soft tissues. There is gaseous distention of the | | imaged stomach. IMPRESSION - 1. SATISFACTORY APPEARANCE STATUS POST | | OPERATIVE FUSION AT L2-3. Dictated and Signed by: Jamir Mcmahon MD | | Electronically signed: 06/11/2017 10:02 PM | + + + + | Procedure Note | + + | Brandon, Rad Results In - 06/11/2017 2205 PDT TWO VIEWS LUMBAR SPINE 06/11/2017 5:45 PM | | | | CLINICAL HISTORY: post op lumbar surgery | | | | COMPARISON: [facility] | | | | FINDINGS: Five non rib-bearing, lumbar type vertebrae are visible. Interbody and | | posterior meng and pedicle screw fusion hardware is now present at L2-3 and | | appears intact and well seated. Vertebral height is maintained. There is | | similar disc space narrowing and mild anterolisthesis at L4-5 with multilevel | | facet hypertrophy again evident as well. The sacroiliac joints and imaged | | sacrum, bony pelvis and lower ribs are unremarkable. A surgical drain is | | present in the left dorsal lumbar soft tissues. There is gaseous distention of | | the imaged stomach. | | | | IMPRESSION - | | | | 1. SATISFACTORY APPEARANCE STATUS POST OPERATIVE FUSION AT L2-3. | | | | Dictated and Signed by: Jamir Mcmahon MD | | Electronically signed: 06/11/2017 10:02 PM | + + [place] DemarioVu Cosby (06/11/2017 1430) + + + | Specimen | Performing Laboratory | + + + | | [facility] | + + + + + | Narrative | + + | No Radiologist interpretation, please see Chart Review. | + + Type and Screen (06/11/2017 [...] + + + | Blood | [facility] [address] | | | [place] [id number] | + + + in this encounter Visit Diagnoses + + | Diagnosis | + + | S/P lumbar fusion - Primary | + + | Arthrodesis status | + + Admitting Diagnoses + + | Diagnosis | + + | Displacement of lumbar intervertebral disc without myelopathy (M51.26), Other idiopathic | | scoliosis, lumbar region (M41.26), Lumbar spondylosis (M47.816), Neurogenic | | claudication (M48.062), Lumbar radiculopathy (M54.16), Acute back pain with sciatica, | + + | left (M54.42), Left leg weakness (R29.893) | + + Administered Medications + +--------+ +--------+------+------+ | Medication Order | MAR | Action | Dose | Rate | Site | | | Action | Date | | | | + +--------+ +--------+------+------+ | acetaminophen (TYLENOL) tablet | Given | | 650 mg | | | | 650 mg 650 mg, Oral, EVERY 4 | | 8 16:41 | | | | | HOURS PRN, Pain, Fever, Starting | | PDT | | | | | 06/11/17 at 1748, | | | | | | | Post-op/Phase II | | | | | | + +--------+ +--------+------+------+ +---+---+ | | | +---+---+ + +-------+ +--------+---+---+ | acetaminophen (TYLENOL) tablet | Given | 3/14/201 | 975 mg | | | | 975 mg 975 mg, Oral, ONCE, Wed | | 8 10:38 | | | | | 06/11/17 at 1030, For 1 dose, | | PDT | | | | | Pre-op | | | | | | + +-------+ +--------+---+---+ +---+---+ | | | +---+---+ + +-------+ +--------+---+---+ | albuterol 2.5 mg/3 mL nebulizer | Given | | 2.5 mg | | | | solution 2.5 mg 2.5 mg, | | 8 15:06 | | | | | Nebulization, ONCE PRN, Wheezing, | | PDT | | | | | Starting 06/11/17 at 1432, | | | | | | | For 1 dose, Notify anesthesia if | | | | | | | patient is wheezing and does not | | | | | | | have a history of asthma or COPD | | | | | | | or current smoking. | | | | | | + +-------+ +--------+---+---+ +---+---+ | | | +---+---+ + +-------+ +-------+---+---+ | atorvaSTATin (LIPITOR) tablet | Given | | 10 mg | | | | 10 mg 10 mg, Oral, NIGHTLY, | | 8 20:20 | | | | | First dose on Fri06/11/17 at | | PDT | | | | | 2100, Post-op/Phase II | | | | | | + +-------+ +-------+---+---+ +-------+ +-------+---+---+ | Given | | 10 mg | | | | | 8 21:04 | | | | | | PDT | | | | +-------+ +-------+---+---+ +---+---+ | | | +---+---+ + +-------+ + +---+---+ | calcium carbonate (TUMS) | Given | | 1,000 mg | | | | chewable tablet 1,000 mg 1,000 | | 8 23:51 | | | | | mg, Oral, EVERY 2 HOURS PRN, | | PDT | | | | | Indigestion, Starting Fri06/11/17 | | | | | | | at 1748, Post-op/Phase II | | | | | | + +-------+ + +---+---+ + + + +---+---+ | Given by Other | | 1,000 mg | | | | | 8 4:42 | | | | | | PDT | | | | + + + +---+---+ +---+---+ | | | +---+---+ + +-------+ +------+---+---+ | diazePAM (VALIUM) tablet 2.5-5 | Given | | 5 mg | | | | mg 2.5-5 mg, Oral, EVERY 6 HOURS | | 8 9:58 | | | | | PRN, Muscle spasms, Starting Wed | | PDT | | | | | 06/11/17 at 1748, Use if | | | | | | | methocarbamol and cyclobenzaprine | | | | | | | ineffective or not ordered. | | | | | | + +-------+ +------+---+---+ + +---+ | | | + +---+ | diphenhydrAMINE (BENADRYL) 12.5 | | | mg/5 mL liquid 25 mg 25 mg, | | | Oral, EVERY 4 HOURS PRN, Itching, | | | Starting Fri06/11/17 at 1748, | | | Oral route is preferred. | | + +---+ | | | + +---+ | diphenhydrAMINE (BENADRYL) | | | injection 12.5 mg 12.5 mg, | | | Intravenous, EVERY 4 HOURS PRN, | | | Itching, Starting Fri06/11/17 at | | | 1748, Oral route is preferred. | | + +---+ | | | + +---+ | diphenhydrAMINE (BENADRYL) | | | tablet 25 mg 25 mg, Oral, EVERY | | | 4 HOURS PRN, Itching, Starting | | | Fri06/11/17 at 1748, Oral route | | | is preferred. | | + +---+ | | | + +---+ + +-------+ +--------+---+---+ | docusate sodium (COLACE) | Given | | 100 mg | | | | capsule 100 mg 100 mg, Oral, 2 | | 8 9:57 | | | | | TIMES DAILY, First dose on Fri | | PDT | | | | | 06/11/17 at 2100, First line agent | | | | | | | for constipation | | | | | | + +-------+ +--------+---+---+ +-------+ +--------+---+---+ | Given | | 100 mg | | | | | 8 21:04 | | | | | | PDT | | | | +-------+ +--------+---+---+ | Given | | 100 mg | | | | | 8 8:14 | | | | | | PDT | | | | +-------+ +--------+---+---+ +---+---+ | | | +---+---+ + +-------+ +--------+---+---+ | fentaNYL (PF) injection 25-50 | Given | | 50 mcg | | | | mcg 25-50 mcg, Intravenous, | | 8 15:33 | | | | | EVERY 5 MIN PRN, Pain, Starting | | PDT | | | | | 06/11/17 at 1432, Maximum | | | | | | | total dose 250 mcg. PACU IV | | | | | | | Narcotic Priority: Only use | | | | | | | fentanyl for immediate post-op | | | | | | | pain (one dose) or breakthrough | | | | | | | pain when any other IV narcotics | | | | | | | ordered have been ineffective (if | | | | | | | ordered). If both morphine and | | | | | | | hydromorphone are ordered, use | | | | | | | morphine first, and use | | | | | | | hydromorphone if morphine | | | | | | | ineffective. | | | | | | + +-------+ +--------+---+---+ + + +--------+---+---+ | Given | | 25 mcg | | | | | 8 16:20 | | | | | | PDT | | | | + + +--------+---+---+ | Given by Other | | 25 mcg | | | | | 8 16:40 | | | | | | PDT | | | | + + +--------+---+---+ +---+---+ | | | +---+---+ + +-------+ +------+---+---+ | finasteride (PROSCAR) tablet 5 | Given | | 5 mg | | | | mg 5 mg, Oral, DAILY, First dose | | 8 9:58 | | | | | on Fri06/11/17 at 1815, | | PDT | | | | | Reproductive Risk: Use | | | | | | | appropriate handling precautions. | | | | | | + +-------+ +------+---+---+ +-------+ +------+---+---+ | Given | | 5 mg | | | | | 8 8:15 | | | | | | PDT | | | | +-------+ +------+---+---+ +---+---+ | | | +---+---+ + +-------+ +--------+---+---+ | gabapentin (NEURONTIN) capsule | Given | | 600 mg | | | | 600 mg 600 mg, Oral, ONCE, Fri | | 8 10:38 | | | | | 06/11/17 at 1030, For 1 dose, | | PDT | | | | | Pre-op | | | | | | + +-------+ +--------+---+---+ +---+---+ | | | +---+---+ + +-------+ +-------+---+---+ | labetalol (TRANDATE) 5 mg/mL | Given | | 10 mg | | | | injection 10 mg 10 mg, | | 8 0:24 | | | | | Intravenous, EVERY 10 MIN PRN, | | PDT | | | | | PRN SBP >160 with P >70, Starting | | | | | | | 06/11/17 at 1748, | | | | | | | Post-op/Phase II | | | | | | + +-------+ +-------+---+---+ +---+---+ | | | +---+---+ + +---------+ + +--------+---+ | methocarbamol (ROBAXIN) 1,000 | New Bag | | 1,000 mg | 146.7 | | | mg in sodium chloride 0.9% 100 mL | | 8 16:13 | | mL/hr | | | IVPB 1,000 mg, Intravenous, | | PDT | | | | | Administer over 45 Minutes, ONCE, | | | | | | | 06/11/17 at 1615, For 1 dose, | | | | | | | Give IV dose immediately postop | | | | | | + +---------+ + +--------+---+ +---+---+ | | | +---+---+ + +-------+ + +---+---+ | methocarbamol (ROBAXIN) tablet | Given | | 1,500 mg | | | | 1,500 mg 1,500 mg, Oral, EVERY 6 | | 8 22:43 | | | | | HOURS PRN, Muscle spasms, | | PDT | | | | | Starting 06/11/17 at 1615, | | | | | | | Post-op/Phase II | | | | | | + +-------+ + +---+---+ +-------+ + +---+---+ | Given | | 1,500 mg | | | | | 8 16:41 | | | | | | PDT | | | | +-------+ + +---+---+ | Given | | 1,500 mg | | | | | 8 6:09 | | | | | | PDT | | | | +-------+ + +---+---+ +---+---+ | | | +---+---+ + +-------+ +------+---+---+ | morphine injection 2-6 mg 2-6 | Given | | 2 mg | | | | mg, Intravenous, EVERY 4 HOURS | | 8 18:23 | | | | | PRN, Pain, Starting 06/11/17 | | PDT | | | | | at 1748, If oral route not an | | | | | | | option. Slow IV push, not faster | | | | | | | than 2mg/minute. First dose must | | | | | | | be lowest dose, titrate to | | | | | | | effective dose by repeat of | | | | | | | lowest dose every 30 minutes prn | | | | | | | pain, may not exceed maximum dose | | | | | | | ordered per interval. Use | | | | | | | Pasero Sedation Scale. | | | | | | + +-------+ +------+---+---+ +-------+ +------+---+---+ | Given | | 2 mg | | | | | 8 23:51 | | | | | | PDT | | | | +-------+ +------+---+---+ +---+---+ | | | +---+---+ + + + +-------+---+---+ | oxyCODONE (ROXICODONE) tablet | Given by | | 20 mg | | | | 5-20 mg 5-20 mg, Oral, EVERY 4 | Other | 8 1:02 | | | | | HOURS PRN, Pain, Starting Wed | | PDT | | | | | 06/11/17 at 1748, First dose must | | | | | | | be the lowest dose, can titrate | | | | | | | to effective dose by repeat of | | | | | | | lowest dose every 60 minutes prn | | | | | | | pain, may not exceed maximum dose | | | | | | | ordered per interval. Use Pasero | | | | | | | Sedation Scale. | | | | | | + + + +-------+---+---+ +-------+ +-------+---+---+ | Given | | 20 mg | | | | | 8 5:33 | | | | | | PDT | | | | +-------+ +-------+---+---+ | Given | | 20 mg | | | | | 8 10:53 | | | | | | PDT | | | | +-------+ +-------+---+---+ +---+---+ | | | +---+---+ + +-------+ +-------+---+---+ | pantoprazole (PROTONIX) DR | Given | | 40 mg | | | | tablet 40 mg 40 mg, Oral, DAILY | | 8 6:30 | | | | | BEFORE BREAKFAST, First dose on | | PDT | | | | | 06/11/17 at 1815, | | | | | | | Post-op/Phase II | | | | | | + +-------+ +-------+---+---+ +-------+ +-------+---+---+ | Given | | 40 mg | | | | | 8 6:06 | | | | | | PDT | | | | +-------+ +-------+---+---+ +---+---+ | | | +---+---+ + +-------+ +------+---+---+ | polyethylene glycol (MIRALAX) | Given | | 17 g | | | | powder 17 g 17 g, Oral, DAILY, | | 8 9:58 | | | | | First dose on Fri06/11/17 at | | PDT | | | | | 1815, If docusate and senna | | | | | | | ineffective or not ordered | | | | | | + +-------+ +------+---+---+ +-------+ +------+---+---+ | Given | | 17 g | | | | | 8 8:14 | | | | | | PDT | | | | +-------+ +------+---+---+ +---+---+ | | | +---+---+ + +-------+ +--------+---+---+ | senna (SENOKOT) tablet 8.6 mg | Given | | 8.6 mg | | | | 8.6 mg, Oral, 2 TIMES DAILY, | | 8 9:57 | | | | | First dose on Fri06/11/17 at | | PDT | | | | | 2100, If docusate ineffective or | | | | | | | not ordered | | | | | | + +-------+ +--------+---+---+ +-------+ +--------+---+---+ | Given | | 8.6 mg | | | | | 8 21:04 | | | | | | PDT | | | | +-------+ +--------+---+---+ | Given | | 8.6 mg | | | | | 8 8:14 | | | | | | PDT | | | | +-------+ +--------+---+---+ +---+---+ | | | +---+---+ + +---------+ +--------+-------+---+ | sodium chloride 0.9% (NS) | New Bag | | 1,000 | 100 | | | infusion at 100 mL/hr, | | 8 10:57 | mLs | mL/hr | | | Intravenous, CONTINUOUS, Starting | | PDT | | | | | 06/11/17 at 1030, Pre-op | | | | | | + +---------+ +--------+-------+---+ +---+---+ | | | +---+---+ + +---------+ +---+-------+---+ | sodium chloride 0.9% (NS) | New Bag | | | 100 | | | infusion at 100 mL/hr, | | 8 18:23 | | mL/hr | | | Intravenous, CONTINUOUS, Starting | | PDT | | | | | 06/11/17 at 1815, | | | | | | | Post-op/Phase II | | | | | | + +---------+ +---+-------+---+ + + +---+ +---+ | Rate/Dose Change | | | 50 mL/hr | | | | 8 23:43 | | | | | | PDT | | | | + + +---+ +---+ +---+---+ | | | +---+---+ + +-------+ +--------+---+---+ | tamsulosin (FLOMAX) capsule 0.4 | Given | | 0.4 mg | | | | mg 0.4 mg, Oral, DAILY, First | | 8 22:44 | | | | | dose on 06/11/17 at 1815, May | | PDT | | | | | open capsule and sprinkle over | | | | | | | acidic soft food (applesauce, | | | | | | | yogurt) or in a small quantity of | | | | | | | acidic fruit juice (orange, | | | | | | | grape). Do not crush, chew or | | | | | | | dissolve granules. | | | | | | + +-------+ +--------+---+---+ +-------+ +--------+---+---+ | Given | | 0.4 mg | | | | | 8 21:04 | | | | | | PDT | | | | +-------+ +--------+---+---+ +---+---+ | | | +---+---+ + +---------+ +-----+--------+---+ | vancomycin 1 g in sodium | New Bag | | 1 g | 166.7 | | | chloride 0.9% 250 mL IVPB 1 g, | | 8 11:04 | | mL/hr | | | Intravenous, Administer over 90 | | PDT | | | | | Minutes, Prior to Incision, | | | | | | | Starting Fri06/11/17 at 0307, For | | | | | | | 1 dose, Administer within 1 hour | | | | | | | of surgical incision. Activate | | | | | | | system and mix before use. | | | | | | + +---------+ +-----+--------+---+ +---+---+ | | | +---+---+ + +---------+ +-------+--------+---+ | vancomycin 1.5 g in sodium | New Bag | | 1.5 g | 176.7 | | | chloride 0.9% 250 mL IVPB 1.5 g, | | 8 23:41 | | mL/hr | | | Intravenous, Administer over 90 | | PDT | | | | | Minutes, EVERY 12 HOURS INTERVAL, | | | | | | | First dose on Fri06/11/17 at | | | | | | | 2300, For 1 dose, Start 12 hours | | | | | | | after previous dose. Last dose | | | | | | | to be given within 24 hours of | | | | | | | surgery end time. Keep in | | | | | | | refrigerator. | | | | | | + +---------+ +-------+--------+---+ +---+---+ | | | +---+---+ in this encounter
--- OUTSIDE RECORDS SUMMARY | ~2017-07-18 | XMS | Encounter Summary ---
Demographics + + + | Address | [address] | | | [place] [address] | + + + | Home Phone [...] + | Organization | [facility] | | | and [place] [...] Team Providers + +------+ + | Care Balance Engineer Name | Role | Phone | + +------+ + | Austin Handy DO | PCP | | + +------+ + Encounter Details +--------+ + + + + | Date | Type | Department | Care Team | Description | +--------+ + + + + | 06/11/ | Procedure | [facility] | | | | 2017 | Pass | [facility] | | | | | | [address] | | | | | | [place] | | | | | | [address] | | | | | | [phone] | | | +--------+ + + + [...] [place], | | | | | | [place] [address] | | | | | | [phone] | | | | | | | | +--------+---------+ + + + as of this encounter Visit Diagnoses Not on filein this encounter"
--- OUTSIDE RECORDS SUMMARY | ~2017-07-18 | XMS | Encounter Summary ---
Demographics + + + | Address | [address] | | | [place] [address] | + + + | Home Phone | | + + + | Preferred Language | Unknown | + + + | Marital Status | | + + + | Oriental Orthodox Affiliation | Unknown | + + + | Race | Unknown | + + + | Ethnic Group | Unknown | + + + Author + + + | Author | [facility] | | | and [place] | + + + | Organization | [facility] | | | and [...] Team Providers + +------+ + | Care Shift Boss Name | Role | Phone | + [...] lumbar | | | | [address] | [address], | intervertebral disc | | | | [place] | [place] [address] | without myelopathy | | | | [address] | [phone] | (Primary Dx); 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
--- OUTSIDE RECORDS SUMMARY | ~2017-07-18 | XMS | Encounter Summary ---
Demographics + + + | Address | [address] | | | [place] [address] | + + + | Home Phone | | + + + | Preferred Language | Unknown | + + + | Marital Status | | + + + | Christianity Affiliation | Unknown | + + + | Race | Unknown | + + + | Ethnic Group | Unknown | + + + Author + + + | Author | [facility] | | | and [place] | + + + | Organization | [facility] | | | and [...] Team Providers + +------+ + | Care Audio Visual Director Name | Role | Phone | + [...] [address] | | | | | [phone] | [place] [address] | | +--------+ + + + + [...] [place], | | | | | | [place] [address] | | | | | | [phone] | | | | | | | | +--------+---------+ + + + as of this encounter Results XR Lumbar Spine 2 or 3 Vw (07/08/2017 8082) + + + | Specimen | Performing Laboratory | + + + | | [facility] | + + + + + | Narrative | + + | External films for comparison only No results will be in the chart. | + + in this encounter Visit Diagnoses Not on filein this encounter"
--- OUTSIDE RECORDS SUMMARY | ~2017-07-18 | XMS | Encounter Summary ---
Demographics + + + | Address | [address] | | | [place] [address] | + + + | Home Phone | | + + + | Preferred Language | Unknown | + + + | Marital Status | | + + + | Sabianism Affiliation | Unknown | + + + | Race | Unknown | + + + | Ethnic Group | Unknown | + + + Author + + + | Author | [facility] | | | and [place] | + + + | Organization | [facility] | | | [...] Team Providers + +------+ + | Care Manager Media Relations Name | Role | Phone | + [...] | | | | | | | [place] | | | | | | | ARTHRODESIS | | | | | | | POSTERIOR/PO | | | | | | | STEROLATERAL | | | | | | | LUMBAR [place] | | | | | | | LUMBAR SPINE | | | | | | | | | | | | | | FUSION,ANTER | | | | | | | APPRCH [place] | | | | | | | [...] | | | | | | [place] | | | | | | | [...] Description | +--------+---------+ + + + | 06/11/ | Surgery | [facility] | Osvaldo Jon, | L2-3 LAIF | | 2018 | | MED CTR OR INTRA OP | DO [address] | | | | | [address] | [address] [place], | | | | | [place] | [place] [address] | | | | | [address] | [phone] | | | | | [phone] | | | +--------+---------+ + + + [...] years a go by Dr. Aguirre in [place] and 30 years ago by someone in [place], [place]. The patien t describes waking up [...] Electronically signed by: Mitchell Smalls, 06/13/2017 7:45 [facility] in this encounter Discharge Instructions Mitchell Smalls PA - 06/13/2017Discharge Instructions for Lumbar Fusion [...] month post op appointment before your appointment. [phone] [employer]. [address] [place] [address]. All righ ts reserved. This information is not intended [...] + + + +---------+ + + | [place]-3 Fatty | Take 2,400 mg by | [...] note may be different from jannet schofield. 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 MOTOR EXAM: Motor strength is stable SENSORY EXAM: Sensory exam is stable 24 HOUR LABS: All Component Based Labs None ASSESSMENT: NEUROSURGICAL DIAGNOSES: S/p lumbar decompression HOSPITAL/GENERAL DIAGNOSES: Past Medical History: Diagnosis Date Abnormal weight gain Actinic keratosis 09/16/2011 Right Acute epididymitis Left Acute upper respiratory infection 05/28/2012 Anterior knee pain, right Anxiety Basal cell carcinoma of left adventism region 09/16/2011 Benign neoplasm of skin 03/18/2012 [...] may be different f rom the original. [facility] NE[facility]OS[facility] PROGRESS NOTE PATIENT NAME: Red [...] Q2H PRN ABEL Gilman 1,000 mg at 06/12/17441 diazePAM (VALIUM) tablet 2.5-5 mg 2.5-5 mg [...] Oral BID ABEL Green 100 mg at 06/11/17 2020 enalaprilat (VASOTEC) injection 1.25 mg 1.25 mg [...] has no apparent deficits with short or correction memory. MOTOR EXAM: Motor strength is 5/5 [...] right Anxiety Basal cell carcinoma of left adventism region 09/16/2011 Benign neoplasm of skin 03/18/2012 [...] ELECTRONICALLY SIGNED BY: Can Cardona PA-C, 06/12/2017 7:29Gooch, Chioma Mac, RN - 0 06/11/2017 1930 PDTPt arrived [...] pain 08/07. Pt did ambulate to the [facility] 2 person SBA. Gait slow but steady. No leg weakness noted. Stated that he does still have some residual numbness in legs but had this pre-op and seems to be somewhat improved. Pt is a B-brace. Incision sites are clean and dry with bandaids intact. JANICE drain in place. p resent at bedside and supportive of care. 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), Other idiopathic | | scoliosis, lumbar region (M41.26), Lumbar spondylosis (M47.816), Neurogenic | | claudication (M48.062), Lumbar radiculopathy (M54.16), Acute back pain with sciatica, | + + | left (M54.42), Left leg weakness (R29.898) | + + Administered Medications + +--------+ [...] | PDT | | | | | Fri06/11/17 at 1748, | | | | | [...] +-------+ +-------+---+---+ +-------+ +-------+---+---+ | Given | 3/15/201 | 10 mg | | | | | 8 21:04 | | | | | | PDT | | | | +-------+ +-------+---+---+ +---+---+ | | | +---+---+ + +-------+ +--------+---+ + | bupivacaine 0.25%-EPINEPHrine | Given | | 20 mLs | | Surgical | | 1:200,000 (PF) injection PRN, | | 8 13:45 | | | Site | | Starting Fri06/11/17 at 1345, | | PDT | | | | | Intra-op | | | | | | + +-------+ +--------+---+ + +---+---+ | | | +---+---+ + +-------+ + +---+---+ | calcium carbonate (TUMS) | Given | | 1,000 mg | | | | chewable tablet 1,000 mg 1,000 | | 8 23:51 | | | | | mg, Oral, EVERY 2 HOURS PRN, | | PDT | | | | | Indigestion, Starting 06/11/17 | | | | | | | [...] HOURS PRN, Itching, | | | Starting 06/11/17 at 1748, | | | Oral route is preferred. | | + +---+ | | | + +---+ | diphenhydrAMINE (BENADRYL) | | | injection 12.5 mg 12.5 mg, | | | Intravenous, EVERY 4 HOURS PRN, | | | Itching, Starting 06/11/17 at | | | 1748, Oral route is preferred. | | + +---+ | | | + +---+ | diphenhydrAMINE (BENADRYL) | | | tablet 25 mg 25 mg, Oral, EVERY | | | 4 HOURS PRN, Itching, Starting | | | 06/11/17 at 1748, Oral route | | | is preferred. | | + +---+ | | | + +---+ + +-------+ +--------+---+---+ | docusate sodium (COLACE) | Given | | 100 mg | | | | capsule 100 mg 100 mg, Oral, 2 | | 8 9:57 | | | | | TIMES DAILY, First dose on Wed | | PDT | | | [...] | | | | | | | Fri06/11/17 at 1748, | | | | | [...] | PDT | | | | | Fri06/11/17 at 1815, | | | | | [...] +---+---+ | | | +---+---+ + +-------+ +--------+---+ + | ropivacaine (NAROPIN) 2 mg/mL | Given | | 60 mLs | | Surgical | | (0.2%) injection PRN, Starting | | 8 13:46 | | | Site | | 06/11/17 at 1346, Intra-op | | PDT | | | | + +-------+ +--------+---+ + +---+---+ | | | +---+---+ + +-------+ +--------+---+---+ | senna EVANOKOT) tablet 8.6 mg | Given | | [...] | PDT | | | | | Fri06/11/17 at 1815, | | | | | [...] +-------+ +--------+---+---+ +-------+ +--------+---+---+ | Given | 3/201 | 0.4 mg | | | | | 8 21:04 | | | | | | PDT | | | | +-------+ +--------+---+---+ +---+---+ | | | +---+---+ in this encounter
--- OUTSIDE RECORDS SUMMARY | ~2017-07-18 | XMS | Encounter Summary ---
Demographics + + + | Address | [address] | | | [place] [address] | + + + | Home Phone | | + + + | Preferred Language | Unknown | + + + | Marital Status | | + + + | Sabianism Affiliation | Unknown | + + + | Race | Unknown | + + + | Ethnic Group | Unknown | + + + Author + + + | Author | [facility] | | | and [place] | + + + | Organization | [facility] | | | and [...] Team Providers + +------+ + | Care Teachers' Assistant Name | Role | Phone | [...] | | | | | | | [place] | | | | | | | ARTHRODESIS | | | | | | | POSTERIOR/PO | | | | | | | STEROLATERAL | | | | | | | LUMBAR [place] | | | | | | | LUMBAR SPINE | | | | | | | | | | | | | | FUSION,ANTER | | | | | | | APPRCH [place] | | | | | | | [...] | | | | | | [place] | | | | | | | [...] + + | 06/11/ | Surgery | [facility] | Osvaldo Jon, | L2-3 LAIF | | 2018 | | MED CTR OR INTRA OP | DO [address] | | | | | [address] | [address] [place], | | | | | [place] | [place] [address] | | | | | [address] | [phone] | | | | | [phone] | | | +--------+---------+ + + + [...] years a go by Dr. Aguirre in [place] and 30 years ago by someone in [place], [place]. The patien t describes waking up [...] Electronically signed by: Mitchell Smalls, 06/13/2017 7:45 [facility] in this encounter Discharge Instructions Mitchell Smalls [...] month post op appointment before your appointment. 5519-[address] [place] [address]. All righ ts reserved. This information is [...] + + + +---------+ + + | [place]-3 Fatty | Take 2,400 mg by | [...] note may be different from jannet schofield. 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 MOTOR EXAM: Motor strength is stable SENSORY EXAM: Sensory exam is stable 24 HOUR LABS: All Component Based Labs None ASSESSMENT: NEUROSURGICAL DIAGNOSES: S/p lumbar decompression HOSPITAL/GENERAL DIAGNOSES: Past Medical History: Diagnosis Date Abnormal weight gain Actinic keratosis 09/16/2011 Right Acute epididymitis Left Acute upper respiratory infection 05/28/2012 Anterior knee pain, right Anxiety Basal cell carcinoma of left religion region 09/16/2011 Benign neoplasm of skin 03/18/2012 [...] may be different f rom the original. [facility] NEUROSURGERY PROGRESS NOTE PATIENT NAME: Red Taylor [...] 1,500 mg 1,500 mg Oral Q6H PRN BAEL Green 1 ,500 mg at 06/11/17 2243 [...] has no apparent deficits with short or fci memory. MOTOR EXAM: Motor strength is 5/5 [...] right Anxiety Basal cell carcinoma of left religion region 09/16/2011 Benign neoplasm of skin 03/18/2012 [...] pain 08/07. Pt did ambulate to the [facility] 2 person SBA. Gait slow but steady. No leg weakness noted. Stated that he does still have some residual numbness in legs but had this pre-op and seems to be somewhat improved. Pt is a B-brace. Incision sites are clean and dry with bandaids intact. JANICE drain in place. p resent at bedside and supportive of care. Cherelle Mackey, HAND SALTER - 06/11/2017 1845 PDTU [place] to initiate [...] | | | | | | [place] [id number] | | | | | | [phone] | | | | | | | [...] | | [place] | | | n [place] | | | Frame | | | [...] | | [place] | | | n [place] | | | Frame | | | [...] | + + + | Blood | [facility]LOOD [facility] [place] | | | [place] [id number] | + + + in this encounter [...]
--- OUTSIDE RECORDS SUMMARY | ~2017-07-18 | XMS | Encounter Summary ---
Demographics + + + | Address | [address] | | | [place] [address] | + + + | Home Phone | | + + + | Preferred Language | Unknown | + + + | Marital Status | | + + + | Episcopal Affiliation | Unknown | + + + | Race | Unknown | + + + | Ethnic Group | Unknown | + + + Author + + + | Author | [facility] | | | and [place] | + + + | Organization | [facility] | | | and [place] | [...] Team Providers + +------+ + | Care Clinical Laboratory Director Name | Role | Phone | [...] + + | 07/11/ | Office | [facility] | SlimMitchell, | S/P lumbar fusion | | 2018 | Visit | NEUROSURGERY [address] | [place] [address] | (Primary Dx); Lumbar | | | | [address] | [address] [place] | radiculopathy | | | | [place], [place] | [place] [address] | | | | | [address] | [phone] | | | | | [phone] | | | +--------+---------+ + + + [...] encounter Instructions Patient Instructions - Malia Brock, Time Recorder - 07/11/2017 0830 PDTIt was a pleasure [...] 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 in this encounter Progress Notes Mitchell Smalls PA - 07/11/2017 0830 PDTFormatting of this note may be different from e original. ABEL Rob [address] [facility], [address] [place], [place] [address] FAX: [phone] NEUROSURGERY FOLLOW-UP CHIEF COMPLAINT: Chief Complaint Patient [...] PO) Take 1 tablet by mouth Daily. Stites-3 Fatty Acids (FISH OIL) 1200 MG CAPS [...] right Anxiety Basal cell carcinoma of left advent region 09/16/2011 Benign neoplasm of skin 03/18/2012 [...] and to advance with therapy as tolerated. [facility] pain medication does not appear to be [...] | | | | | | [place] [address] | | | | | | [phone] | | | | | | | [...]
--- OUTSIDE RECORDS SUMMARY | ~2017-07-18 | XMS | Encounter Summary ---
Demographics + + + | Address | [address] | | | [place] [address] | + + + | Home Phone | | + + + | Preferred Language | Unknown | + + + | Marital Status | | + + + | Hindu Affiliation | Unknown | + + + | Race | Unknown | + + + | Ethnic Group | Unknown | + + + Author + + + | Author | [facility] | | | and [place] | + + + | Organization | [facility] | | | and [place] | [...] Team Providers + +------+ + | Care Science Teacher Name | Role | Phone | + [...] [place], | | | | | [place], [place] | [place] [address] | | | | | [address] | [phone] | | | | | [phone] | | | +--------+ + + + [...] [place], | | | | | | [place] [address] | | | | | | [phone] | | | | | | | | +--------+---------+ + + + as of this encounter Visit Diagnoses Not on filein this encounter"
--- OUTSIDE RECORDS SUMMARY | ~2017-07-18 | XMS | Encounter Summary ---
Demographics + + + | Address | [address] | | | [place] [address] | + + + | Home Phone | | + + + | Preferred Language | Unknown | + + + | Marital Status | | + + + | Congregational Affiliation | Unknown | + + + | Race | Unknown | + + + | Ethnic Group | Unknown | + + + Author + + + | Author | [facility] | | | and [place] | + + + | Organization | [facility] | | | and [...] Team Providers + +------+ + | Care Flue Lining Dipper Name | Role | Phone | + +------+ + PCP | Unavailable | + +------+ + Encounter Details +--------+ + + + + | Date | Type | Department | Care Team | Description | +--------+ + + + + | 05/02/ | Orders Only | [facility] [place] | Osvaldo Jon, | Other intervertebral | | 2018 | | NEUROSURGERY [address] | DO [address] | disc displacement, | | | | [address] | [address] [place], | lumbar region; | | | | [place], [place] | [place] [address] | Lumbar | | | | [address] | [phone] | radiculopathy; Low | | | | [phone] | | back pain, | | | [...] | | | | [address] [place], | | | | | | [place] [address] | | | | | | [phone] | | | | | | | [...] | + + + | Blood | [facility]u | | | [place] [address] | + + + ECG 12 lead [...] GINA VAZQUEZ MD | | | | ([id number]) on 05/22/2017 7:06:50 AM | | | |Confirmed by GINA VAZQUEZ MD ([id number]) on 05/22/2017 7:06:50 AM | | | | | | + + +------ -----+ + + + | Specimen | Performing Laboratory | + + + | | [facility] | + + + in this encounter Visit Diagnoses + + | Diagnosis | + + | Other intervertebral disc displacement, lumbar region | + + | Lumbar radiculopathy | + + | Thoracic or lumbosacral neuritis or radiculitis, unspecified | + + | Low back pain, unspecified back pain laterality, unspecified chronicity, with sciatica | | presence unspecified | + + | Hypertension, unspecified type | + + | Hyperlipidemia, unspecified hyperlipidemia type | + +"
--- OUTSIDE RECORDS SUMMARY | ~2017-07-18 | XMS | Encounter Summary ---
Demographics + + + | Address | [address] | | | [place] [address] | + + + | Home Phone | | + + + | Preferred Language | Unknown | + + + | Marital Status | | + + + | Bahai Affiliation | Unknown | + + + | Race | Unknown | + + + | Ethnic Group | Unknown | + + + Author + + + | Author | [facility] | | | and [place] | + + + | Organization | [facility] | | | and [place] [...] Team Providers + +------+ + | Care Steel Worker Name | Role | Phone | + +------+ + PCP | Unavailable | + +------+ + Reason for Visit +--------+ + | Reason | Comments | +--------+ + | Other | | +--------+ + Encounter Details +--------+ + + + + | Date | Type | Department | Care Team | Description | +--------+ + + + + | 05/01/ | Telephone | [facility] [place] | Osvaldo Jon, | Other | | 2018 | | NEUROSURGERY [address] | DO [address] | | | | | [address] | [address] [place], | | | | | [place], [place] | [place] [address] | | | | | [address] | [phone] | | | | | [phone] | | | +--------+ + + + [...] [place], | | | | | | [place] [address] | | | | | | [phone] | | | | | | | | +--------+---------+ + + + as of this encounter Visit Diagnoses Not on filein this encounter"
--- OUTSIDE RECORDS SUMMARY | ~2017-07-18 | XMS | Encounter Summary ---
Demographics + + + | Address | [address] | | | [place] [address] | + + + | Home Phone | | + + + | Preferred Language | Unknown | + + + | Marital Status | | + + + | Jehovah'S Witness Affiliation | Unknown | + + + | Race | Unknown | + + + | Ethnic Group | Unknown | + + + Author + + + | Author | [facility] | | | and [place] | + + + | Organization | [facility] | | | and [...] Team Providers + +------+ + | Care Cue Selector Name | Role | Phone | + +------+ + | Austin Handy DO | PCP | | + +------+ + Reason for Visit + + + | Reason | Comments | + + + | Post-op Question | | + + + Encounter Details +--------+ + + + + | Date | Type | Department | Care Team | Description | +--------+ + + + + | 07/16/ | Telephone | [facility] [place] | Osvaldo Jon, | Post-op Question | | 2018 | | NEUROSURGERY [address] | DO [address] | | | | | [address] | [address] [place], | | | | | [place], [place] | [place] [address] | | | | | [address] | [phone] | | | | | [phone] | | | +--------+ + + + [...] Visit | | DO [address] | | | | | | [address] [place], | | | | | | [place] [address] | | | | | | [phone] | | | | | | | | +--------+---------+ + + + as of this encounter Visit Diagnoses Not on filein this encounter"
--- OUTSIDE RECORDS SUMMARY | ~2017-07-18 | XMS | Encounter Summary ---
Demographics + + + | Address | [address] | | | [place] [address] | + + + | Home Phone | | + + + | Preferred Language | Unknown | + + + | Marital Status | | + + + | Zoroastrianism Affiliation | Unknown | + + + | Race | Unknown | + + + | Ethnic Group | Unknown | + + + Author + + + | Author | [facility] | | | and [place] | + + + | Organization | [facility] | | | and [place] | [...] Team Providers + +------+ + | Care Block Mason Name | Role | Phone | + +------+ + | Austin Handy DO | PCP | | + +------+ + Encounter Details +--------+ + + + + | Date | Type | Department | Care Team | Description | +--------+ + + + + | 06/13/ | Hospital | [facility] | Nicole Lewis, | | | 2018 | Encounter | MED CTR THERAPY OT | EPHRAIM Givens, | | | | | ACUTE [address] | [place] | | | | | [place] | Student | | | | | [address] | | | | | | [phone] | | | +--------+ + + + [...] + + + +---------+ + + | Casco-3 Fatty | Take 2,400 mg by | [...] | Visit | | DO [address] | | | | | | [address] [place], | | | | | | [place] [address] | | | | | | [phone] | | | | | | | | +--------+---------+ + + + as of this encounter Visit Diagnoses Not on filein this encounter"
--- OUTSIDE RECORDS SUMMARY | ~2017-07-18 | XMS | Encounter Summary ---
Demographics + + + | Address | [address] | | | [place] [address] | + + + | Home Phone | | + + + | Preferred Language | Unknown | + + + | Marital Status | | + + + | Amish Affiliation | Unknown | + + + | Race | Unknown | + + + | Ethnic Group | Unknown | + + + Author + + + | Author | [facility] | | | and [place] | + + + | Organization | [facility] | | | and [place] [...] Team Providers + +------+ + | Care Pulmonary Care Nurse Name | Role | Phone | + +------+ + | Austin Handy DO | PCP | | + +------+ + Encounter Details +--------+ + + + + | Date | Type | Department | Care Team | Description | +--------+ + + + + | 07/08/ | Imaging | [facility] | Ernesto, | | | 2018 | Exam | MED CTR EXTERNAL | MD [address] | | | | | IMAGING | [place] | | | | | [phone] | [place] [address] | | +--------+ + + + + [...] [place], | | | | | | [place] [address] | | | | | | [phone] | | | | | | | | +--------+---------+ + + + as of this encounter Results XR Lumbar Spine 2 or 3 Vw (07/08/2017 1247) + + + | Specimen | Performing Laboratory | + + + | | [facility] | + + + + + | Narrative | + + | External films for comparison only No results will be in the chart. | + + in this encounter Visit Diagnoses Not on filein this encounter"
--- OUTSIDE RECORDS SUMMARY | ~2017-07-18 | XMS | Encounter Summary ---
Demographics + + + | Address | [address] | | | [place] [address] | + + + | Home Phone | | + + + | Preferred Language | Unknown | + + + | Marital Status | | + + + | Judaism Affiliation | Unknown | + + + | Race | Unknown | + + + | Ethnic Group | Unknown | + + + Author + + + | Author | [facility] | | | and [place] | + + + | Organization | [facility] | | | and [...] Team Providers + +------+ + | Care Gum Machine Operator Name | Role | Phone | [...] Low | | | | [address] | [address] [place], | back pain, | | | | [place], [place] | [place] [address] | unspecified back | | | | [address] | [phone] | pain laterality, | | | | [phone] | | unspecified | | | | [...] a LSO which was provided by a home furnishings sales representative of [employer]. ANGIE Jenkins Kathryn I, [employer] Pants Outseamer - 05/21/2017 1400 PSTREVIEW OF SYSTEMS GENERALLY: [...] [place], | | | | | | [place] [address] | | | | | | [phone] | | | | | | | [...]
--- OUTSIDE RECORDS SUMMARY | ~2017-07-18 | XMS | Encounter Summary ---
Demographics + + + | Address | [address] | | | [place] [address] | + + + | Home Phone | | + + + | Preferred Language | Unknown | + + + | Marital Status | | + + + | Caodaism Affiliation | Unknown | + + + | Race | Unknown | + + + | Ethnic Group | Unknown | + + + Author + + + | Author | [facility] | | | and [place] | + + + | Organization | [facility] | | | and [place] [...] Team Providers + +------+ + | Care Book Sewing Machine Operator Name | Role | Phone | + +------+ + PCP | Unavailable | + +------+ + Encounter Details +--------+ + + + + | Date | Type | Department | Care Team | Description | +--------+ + + + + | 05/21/ | Preadmit | [facility] | Osvaldo Jon, | Preoperative | | 2018 | Visit | MED CTR PREADMIT | DO [address] | clearance (Primary | | | | CLINIC [address] | [address] [place], | Dx); Other | | | | [place] | [place] [address] | intervertebral disc | | | | [address] | [phone] | displacement, lumbar | | | | [...] [place], | | | | | | [place] [id number] | | | | | | [phone] | | | | | | | [...] | + + + | Blood | [facility] | | | [place] [address] | + + + Culture, MRSA (05/21/2017 1548) + + + + | Component | Value | Ref Range | + + + + | Culture | Negative for MRSA by chromogenic agar | | | | method | | + + + + + + + | Specimen | Performing Laboratory | + + + | Respiratory - Nares | [facility] Tom Cantu | | | [place] [address] | + + + ECG 12 lead [...] GINA VAZQUEZ MD | | | | ([id number]) on 05/22/2017 7:06:50 AM | | | |Confirmed by GINA VAZQUEZ MD ([id number]) on 05/22/2017 7:06:50 AM | | | [...]
--- OUTSIDE RECORDS SUMMARY | ~2017-07-18 | XMS | Encounter Summary ---
Demographics + + + | Address | [address] | | | [place] [address] | + + + | Home Phone | | + + + | Preferred Language | Unknown | + + + | Marital Status | | + + + | Latter-Day Affiliation | Unknown | + + + | Race | Unknown | + + + | Ethnic Group | Unknown | + + + Author + + + | Author | [facility] | | | and [place] | + + + | Organization | [facility] | | | and [...] Team Providers + +------+ + | Care Front Desk Person Name | Role | Phone | + +------+ + | Austin Handy DO | PCP | | + +------+ + Encounter Details +--------+ + + + + | Date | Type | Department | Care Team | Description | +--------+ + + + + | 06/03/ | Orders Only | [facility] [place] | Osvaldo Jon, | Displacement of | | 2018 | | NEUROSURGERY [address] | DO [address] | lumbar | | | | [address] | [address] [place], | intervertebral disc | | | | [place], [place] | [place] [address] | without myelopathy | | | | [address] | [phone] | (Primary Dx); S/P | | | | [phone] | | lumbar fusion | +--------+ + + + + Social [...] [place], | | | | | | [place] [address] | | | | | | [phone] | | | | | | | | +--------+---------+ + + + + +--------+ + + | Name | Priori | Associated Diagnoses | Order Schedule | | | ty | | | + +--------+ + + | XR Lumbar Spine 2 or 3 Vw | Routin | Displacement of | Expected: | | | e | lumbar | 06/03/2017, Expires: | | | | intervertebral disc | 06/03/2018 | | | | without myelopathy | | | | | S/P lumbar fusion | | + +--------+ + + as of this encounter Visit Diagnoses + + | Diagnosis | + + | Displacement of lumbar intervertebral disc without myelopathy - Primary | + + | S/P lumbar fusion | + + | Arthrodesis status | + +"
--- OUTSIDE RECORDS SUMMARY | ~2017-07-18 | XMS | Encounter Summary ---
Demographics + + + | Address | [address] | | | [place] [address] | + + + | Home Phone [...] Author | [facility] | | | and [place] | + + + | Organization | [facility] | | | and [...] Team Providers + +------+ + | Care Adult School Counselor Name | Role | Phone | + [...] | | | | | | | [place] | | | | | | | ARTHRODESIS | | | | | | | POSTERIOR/PO | | | | | | | STEROLATERAL | | | | | | | LUMBAR [place] | | | | | | | LUMBAR SPINE | | | | | | | | | | | | | | FUSION,ANTER | | | | | | | APPRCH [place] | | | | | | | [...] | | | | | | [place]ON [place] | | | | | | | [...] + + | 06/11/ | Hospital | [facility] | Osvaldo Jon, | | | 2018 | Encounter | MED CTR XRAY [address] | DO [address] | | | | | [place] | [address] [place], | | | | | [place] [address] | [place] [address] | | | | | [phone] | [phone] | | | | | | | [...] + + + +---------+ + + | [place]-3 Fatty | Take 2,400 mg by | [...] [place], | | | | | | [place] [address] | | | | | | [phone] | | | | | | | | +--------+---------+ + + + as of this encounter Visit Diagnoses Not on filein this encounter"
--- OUTSIDE RECORDS SUMMARY | ~2017-07-18 | XMS | Encounter Summary ---
Demographics + + + | Address | [address] | | | [place] [address] | + + + | Home Phone | | + + + | Preferred Language | Unknown | + + + | Marital Status | | + + + | Orthodox Affiliation | Unknown | + + + | Race | Unknown | + + + | Ethnic Group | Unknown | + + + Author + + + | Author | [facility] | | | and [place] | + + + | Organization | [facility] | | | and [...] Team Providers + +------+ + | Care Wood Heel Cementer Name | Role | Phone | + +------+ + | Austin Handy DO | PCP | | + +------+ + Reason for Visit +---------+ + | Reason | Comments | +---------+ + | Post Op | Post-op Call | +---------+ + Encounter Details +--------+ + + + + | Date | Type | Department | Care Team | Description | +--------+ + + + + | 06/18/ | Telephone | [facility] [place] | Osvaldo Jon, | Post Op (Post-op | | 2018 | | NEUROSURGERY [address] | DO [address] | Call) | | | | [address] | [address] [place], | | | | | [place], [place] | [place] [address] | | | | | [address] | [phone] | | | | | [phone] | | | +--------+ + + + [...] Visit | | DO [address] | | | | | | [address] [place], | | | | | | [place] [address] | | | | | | [phone] | | | | | | | | +--------+---------+ + + + as of this encounter Visit Diagnoses Not on filein this encounter"
--- OUTSIDE RECORDS SUMMARY | ~2017-07-18 | XMS | Encounter Summary ---
Demographics + + + | Address | [address] | | | [place] [address] | + + + | Home Phone | | + + + | Preferred Language | Unknown | + + + | Marital Status | | + + + | Congregational Affiliation | Unknown | + + + | Race | Unknown | + + + | Ethnic Group | Unknown | + + + Author + + + | Author | [facility] | | | and [place] | + + + | Organization | [facility] | | | and [...] Providers + +------+ + | Care Balance Wheel Screw Hole Driller Name | Role | Phone | + [...] [place] | | | | | | [address] | | | | | | [phone] | | | +--------+ + + + [...] | | | | | | [place] [address] | | | | | | [phone] | | | | | | | | +--------+---------+ + + + as of this encounter Visit Diagnoses Not on filein this encounter"
--- OUTSIDE RECORDS SUMMARY | ~2017-07-18 | XMS | Encounter Summary ---
Demographics + + + | Address | [address] | | | [place] [address] | + + + | Home Phone | | + + + | Preferred Language | Unknown | + + + | Marital Status | | + + + | Gnosticism Affiliation | Unknown | + + + | Race | Unknown | + + + | Ethnic Group | Unknown | + + + Author + + + | Author | [facility] | | | and [place] | + + + | Organization | [facility] | [...] Team Providers + +------+ + | Care Acoustic Sensor Operator Name | Role | Phone | [...] [place], | | | | | [place], [place] | [place] [address] | | | | | [address] | [phone] | | | | | [phone] | | | +--------+ + + + [...] [place], | | | | | | [place] [address] | | | | | | [phone] | | | | | | | | +--------+---------+ + + + as of this encounter Visit Diagnoses Not on filein this encounter"
--- OUTSIDE RECORDS SUMMARY | ~2017-07-18 | XMS | Encounter Summary ---
Demographics + + + | Address | [address] | | | [place] [address] | + + + | Home Phone | | + + + | Preferred Language | Unknown | + + + | Marital Status | | + + + | Adventist Affiliation | Unknown | + + + | Race | Unknown | + + + | Ethnic Group | Unknown | + + + Author + + + | Author | [facility] | | | and [place] | + + + | Organization | [facility] | | | and [place] [...] Team Providers + +------+ + | Care Business Support Specialist Name | Role | Phone | + [...] | Telephone | [facility] [place] | Osavldo Jon, | Post Op (Post-op | | 2018 | | NEUROSURGERY [address] | DO [address] | Call) | | | | [address] | [address] [place], | | | | | [place], [place] | [place] [address] | | | | | [address] | [phone] | | | | | [phone] | | | +--------+ + + + [...] [place], | | | | | | [place] [address] | | | | | | [phone] | | | | | | | | +--------+---------+ + + + as of this encounter Visit Diagnoses Not on filein this encounter"
--- OUTSIDE RECORDS SUMMARY | ~2017-07-18 | XMS | Encounter Summary ---
Demographics + + + | Address | [address] | | | [place] [address] | + + + | Home Phone | | + + + | Preferred Language | Unknown | + + + | Marital Status | | + + + | Mandaeism Affiliation | Unknown | + + + | Race | Unknown | + + + | Ethnic Group | Unknown | + + + Author + + + | Author | [facility] | | | and [place] | + + + | Organization | [facility] | | | and [place] [...] Team Providers + +------+ + | Care Director Government Name | Role | Phone | + [...] | | | [place] | [place] [address] | | | | | [address] | [phone] | | | | | [phone] | | | +--------+ + + + [...] [place], | | | | | | [place] [address] | | | | | | [phone] | | | | | | | | +--------+---------+ + + + as of this encounter Visit Diagnoses Not on filein this encounter"
--- OUTSIDE RECORDS SUMMARY | ~2017-07-18 | XMS | Encounter Summary ---
Demographics + + + | Address | [address] | | | [place] [address] | + + + | Home Phone | | + + + | Preferred Language | Unknown | + + + | Marital Status | | + + + | Lutheran Affiliation | Unknown | + + + | Race | Unknown | + + + | Ethnic Group | Unknown | + + + Author + + + | Author | [facility] | | | and [place] | + + + | Organization | [facility] | | | and [...] Team Providers + +------+ + | Care Jackscrew Worker Name | Role | Phone | [...] [place] | | | | | | [address] | | | | | | [phone] | | | +--------+ + + + [...] | | | | | | [place] [address] | | | | | | [phone] | | | | | | | | +--------+---------+ + + + as of this encounter Visit Diagnoses Not on filein this encounter"
--- OUTSIDE RECORDS SUMMARY | ~2017-07-18 | XMS | Encounter Summary ---
Demographics + + + | Address | [address] | | | [place] [address] | + + + | Home Phone | | + + + | Preferred Language | Unknown | + + + | Marital Status | | + + + | Adventist Affiliation | Unknown | + + + | Race | Unknown | + + + | Ethnic Group | Unknown | + + + Author + + + | Author | [facility] | | | and [place] | + + + | Organization | [facility] | | | and [place] [...] Team Providers + +------+ + | Care Team Psychologist Name | Role | Phone | + [...] | | | | | | | [place] | | | | | | | ARTHRODESIS | | | | | | | POSTERIOR/PO | | | | | | | STEROLATERAL | | | | | | | LUMBAR [place] | | | | | | | LUMBAR SPINE | | | | | | | | | | | | | | FUSION,ANTER | | | | | | | APPRCH [place] | | | | | | | [...] | | | | | | [place]ON [place] | | | | | | | [...] + + | 06/11/ | Anesthesia | [facility] | [place], | | | 2018 | Event | MED CTR OR INTRA OP | Ad Mac MD | | | | | [address] | [address] | | | | | [place] | [place] | | | | | [address] | [id number] | | | | | [phone] | | | +--------+ + + + [...] [address] | | eral | Forearm; gwid-wje-xyvrbt catheter | Krystal Brandt RN | [place] [...] | | | | | | [place] [address] | | | | | | [phone] | | | | | | | [...]
--- OUTSIDE RECORDS SUMMARY | ~2017-07-18 | XMS | Encounter Summary ---
Demographics + + + | Address | [address] | | | [place] [address] | + + + | Home Phone | | + + + | Preferred Language | Unknown | + + + | Marital Status | | + + + | Jainism Affiliation | Unknown | + + + | Race | Unknown | + + + | Ethnic Group | Unknown | + + + Author + + + | Author | [facility] | | | and [place] | + + + | Organization | [facility] | | | and [...] Team Providers + +------+ + | Care Florist Name | Role | Phone | + [...] | | | | | | | ME | | | | | | | ARTHRODESIS | | | | | | | POSTERIOR/PO | | | | | | | STEROLATERAL | | | | | | | LUMBAR ME | | | | | | | LUMBAR SPINE | | | | | | | | | | | | | | FUSION,ANTER | | | | | | | APPRCH ME | | | | | | | [...] | | | | | | ION ME | | | | | | | [...] + + | 06/11/ | Hospital | [facility] | Osvaldo Jon, | S/P lumbar fusion | | 2018 - | Encounter | [facility] | DO [address] | (Primary Dx) | | | | [address] [place] | [address] [place], | | | [birth year]/ | | [place] [address] | [place] [address] | | | 2018 | | [phone] | [phone] | | | | | | | [...] years a go by Dr. Aguirre in [place] and 30 years ago by someone in [place], [place]. The patien t describes waking up [...] Electronically signed by: Mitchell Smalls, 06/13/2017 7:45 [facility] in this encounter Discharge Instructions Mitchell Smalls, [...] month post op appointment before your appointment. [id number] [employer]. [address] [place] [address]. [facility] reserved. This information is not intended [...] + + + +---------+ + + | [place]-3 Fatty | Take 2,400 mg by | [...] note may be different from jannet schofield. 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 MOTOR EXAM: Motor strength is stable SENSORY EXAM: Sensory exam is stable 24 HOUR LABS: All Component Based Labs None ASSESSMENT: NEUROSURGICAL DIAGNOSES: S/p lumbar decompression HOSPITAL/GENERAL DIAGNOSES: Past Medical History: Diagnosis Date Abnormal weight gain Actinic keratosis 09/16/2011 Right Acute epididymitis Left Acute upper respiratory infection 05/28/2012 Anterior knee pain, right Anxiety Basal cell carcinoma of left episcopal region 09/16/2011 Benign neoplasm of skin 03/18/2012 [...] may be different f rom the original. [facility] NEUROSURGERY PROGRESS NOTE PATIENT NAME: Red Taylor [...] Q4H PRN ABEL Green 2 mg at 0291 ondansetron (ZOFRAN ODT) disintegrating tablet 4 mg [...] has no apparent deficits with short or ferry terminal supervisor memory. MOTOR EXAM: Motor strength is 5/5 [...] right Anxiety Basal cell carcinoma of left episcopal region 09/16/2011 Benign neoplasm of skin 03/18/2012 [...] pain 08/07. Pt did ambulate to the [facility] 2 person [facility]. Gait slow but steady. No leg weakness noted. Stated that he does still have some residual numbness in legs but had this pre-op and seems to be somewhat improved. Pt is a B-brace. Incision sites are clean and dry with bandaids intact. JANICE drain in place. p resent at bedside and supportive of care. Cherelle Mackey, LOCKER ROOM SUPERVISOR - 06/11/2017 1845 PDTU nable to initiate [...] | | | | | | [place] [address] | | | | | | [phone] | | | | | | | [...] | | [place] | | | n [place] | | | Frame | | | [...] | | [place] | | | n [place] | | | Frame | | | [...] + + + | Blood | [facility] [address] | | | [place] [address] | + + + in this encounter [...] + | left (M54.42), Left leg weakness (R29.899) | + + Administered Medications + +--------+ [...]
--- OUTSIDE RECORDS SUMMARY | ~2017-07-18 | XMS | Encounter Summary ---
Demographics + + + | Address | [address] | | | [place] [address] | + + + | Home Phone | | + + + | Preferred Language | Unknown | + + + | Marital Status | | + + + | Tenriism Affiliation | Unknown | + + + | Race | Unknown | + + + | Ethnic Group | Unknown | + + + Author + + + | Author | [facility] | | | and [place] | + + + | Organization | [facility] | | | and [place] [...] Team Providers + +------+ + | Care Subscription Crew Leader Name | Role | Phone | + [...] [place], | | | | | [place], [place] | [place] [address] | | | | | [address] | [phone] | | | | | [phone] | | | +--------+ + + + [...] | | | | | | [place] [address] | | | | | | [phone] | | | | | | | | +--------+---------+ + + + as of this encounter Visit Diagnoses Not on filein this encounter"
--- OUTSIDE RECORDS SUMMARY | ~2017-07-18 | XMS | Encounter Summary ---
Demographics + + + | Address | [address] | | | [place] [address] | + + + | Home Phone [...] [facility] | | | and [...] Team Providers + +------+ + | Care Ship Officer Name | Role | Phone | + [...] [place], | | | | | [place], [place] | [place] [address] | | | | | [address] | [phone] | | | | | [phone] | | | +--------+ + + + [...] | | | | | | [place] [address] | | | | | | [phone] | | | | | | | | +--------+---------+ + + + as of this encounter Visit Diagnoses Not on filein this encounter"
--- OUTSIDE RECORDS SUMMARY | ~2017-07-18 | XMS | Encounter Summary ---
Demographics + + + | Address | [address] | | | [place] [address] | + + + | Home Phone | | + + + | Preferred Language | Unknown | + + + | Marital Status | | + + + | Quaker Affiliation | Unknown | + + + | Race | Unknown | + + + | Ethnic Group | Unknown | + + + Author + + + | Author | [facility] | | | and [place] | + + + | Organization | [facility] | | | [...] Team Providers + +------+ + | Care New Autos Delivery Driver Name | Role | Phone | + [...] | MED CTR EXTERNAL | MD [address] | | | | | IMAGING | [place] | | | | | [phone] | [place] [address] | | +--------+ + + + + [...] [place], | | | | | | [place] [address] | | | | | | [phone] | | | | | | | | +--------+---------+ + + + as of this encounter Results XR Lumbar Spine 2 or 3 Vw (07/08/2017 0114) + + + | Specimen | Performing Laboratory | + + + | | [facility] | + + + + + | Narrative | + + | External films for comparison only No results will be in the chart. | + + in this encounter Visit Diagnoses Not on filein this encounter"
--- OUTSIDE RECORDS SUMMARY | ~2017-07-18 | XMS | Encounter Summary ---
Demographics + + + | Address | [address] | | | [place] [address] | + + + | Home Phone | | + + + | Preferred Language | Unknown | + + + | Marital Status | | + + + | Rastafarian Affiliation | Unknown | + + + | Race | Unknown | + + + | Ethnic Group | Unknown | + + + Author + + + | Author | [facility] | | | and [place] | + + + | Organization | [facility] [...] Team Providers + +------+ + | Care Collection Specialist Name | Role | Phone | [...] [place], | | | | | [place], [place] | [place] [address] | | | | | [address] | [phone] | | | | | [phone] | | | +--------+ + + + [...] [place], | | | | | | [place] [address] | | | | | | [phone] | | | | | | | | +--------+---------+ + + + as of this encounter Visit Diagnoses Not on filein this encounter"
--- OUTSIDE RECORDS SUMMARY | ~2017-07-18 | XMS | Encounter Summary ---
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
--- OUTSIDE RECORDS SUMMARY | ~2017-07-18 | XMS | Encounter Summary ---
Demographics + + + | Address | [address] | | | [place] [address] | + + + | Home Phone | | + + + | Preferred Language | Unknown | + + + | Marital Status | | + + + | Methodist Affiliation | Unknown | + + + | Race | Unknown | + + + | Ethnic Group | Unknown | + + + Author + + + | Author | [facility] | | | and [place] | + + + | Organization | [facility] | | | and [place] [...] Team Providers + +------+ + | Care Song Writer Name | Role | Phone | + [...] [place] | | | | | | [address] | | | | | | [phone] | | | +--------+ + + + [...] [place], | | | | | | [place] [address] | | | | | | [phone] | | | | | | | | +--------+---------+ + + + as of this encounter Visit Diagnoses Not on filein this encounter"
--- OUTSIDE RECORDS SUMMARY | ~2017-07-18 | XMS | Encounter Summary ---
Demographics + + + | Address | [address] | | | [place] [address] | + + + | Home Phone | | + + + | Preferred Language | Unknown | + + + | Marital Status | | + + + | Pentecostal Affiliation | Unknown | + + + | Race | Unknown | + + + | Ethnic Group | Unknown | + + + Author + + + | Author | [facility] | | | and [place] | + + + | Organization | [facility] | | | and [place] [...] Providers + +------+ + | Care Director Counseling Bureau Name | Role | Phone | + [...] [place], | | | | | [place], [place] | [place] [address] | | | | | [address] | [phone] | | | | | [phone] | | | +--------+ + + + [...] | | | | | | [place] [address] | | | | | | [phone] | | | | | | | | +--------+---------+ + + + as of this encounter Visit Diagnoses Not on filein this encounter"
--- OUTSIDE RECORDS SUMMARY | ~2017-07-18 | XMS | Encounter Summary ---
Demographics + + + | Address | [address] | | | [place] [address] | + + + | Home Phone | | + + + | Preferred Language | Unknown | + + + | Marital Status | | + + + | Mormonism Affiliation | Unknown | + + + | Race | Unknown | + + + | Ethnic Group | Unknown | + + + Author + + + | Author | [facility] | | | and [place] | + + + | Organization | [facility] | | | and [place] [...] Team Providers + +------+ + | Care Cell Efficiency Supervisor Name | Role | Phone | [...] | lumbar region; | | | | [place], [place] | [place] [address] | Lumbar | | | | [address] | [phone] | radiculopathy; Low | | | | [phone] | | back pain, | | | [...] [place], | | | | | | [place] [address] | | | | | | [phone] | | | | | | | [...] | + + + | Blood | [facility] [address] | | | [place] [address] | + + + ECG 12 lead [...] GINA VAZQUEZ MD | | | | ([id number]) on 05/22/2017 7:06:50 AM | | | |Confirmed by GINA VAZQUEZ MD ([id number]) on 05/22/2017 7:06:50 AM | | | [...]
[~2017-07-18 17:33] MED LIST: BACITRACIN3.5 GM OD; BACTRIM DS TAB1 EACH PO; FISH OIL 1,0001 EAC3 PO; FLAXSEED1000 MG PO; MULTIPLE VITAM1 EAC2 PO; NORCO 5-325 TA1 EACH PO; OMEPRAZOLE40 MG PO; PERCOCET 5-3251 EACH PO; PIROXICAM10 MG PO; SIMVASTATIN20 MG PO; ZOLPIDEM TARTRA10 MG PO
[2017-07-18] MEDS ORDERED: DOXYCYCLINE HY100 MG PO (18:03)
[2017-07-18] MEDS ORDERED: OXYCODONE HCL10 MG PO (18:04)
[2017-07-18] MEDS ORDERED: BACTRIM DS TAB1 EACH PO (19:50)
[2017-07-18] MEDS ORDERED: INDOMETHACIN75 MG PO (19:50)
[2017-07-18] MEDS ORDERED: PERCOCET 5-3251 EACH PO (20:36)
== END 2017-07-18 20:56 | disposition home or self-care (01) ==
LOC: ED 17:33
DX: L03.113 Cellulitis of right upper limb (principal); I10 Essential (primary) hypertension; Z87.891 Personal history of nicotine dependence; Z88.1 Allergy status to other antibiotic agents; Z79.899 Other long term (current) drug therapy; Z98.890 Other specified postprocedural states
CPT/HCPCS: 73110; 80053; 82945; 83605; 85025; 85810; 86431; 87040; 87070; 87075; 87076; 87077; 87185; 87205; 89051; 89060; 96374; 96375; 99284; J1885; J2543

== ENCOUNTER 2018-06-11 06:15 | Day surgery (SDC) | payer OTHER ==
[~2018-06-11] VITALS: Ht 175.3 cm; Wt 111.1 kg
[~2018-06-11 06:15] MED LIST changes: +CLOBETASOL EMU100 GM TOP; +DOXYCYCLINE HY100 MG PO; +FLOMAX0.4 MG PO; +INDOMETHACIN75 MG PO; +MELATONIN5 M2 PO; +OXYCODONE HCL10 MG PO; +PIROXICAM20 MG PO; +PROSCAR5 MG PO; +VITAMIN B122500 MCG PO; +VITAMIN C500 M5 PO; +VITAMIN D50000 UNI1 PO
--- NOTE | 2018-06-11 08:00 | NUR ---
06/11/18 0800 Shannan Bower 0756 PATIENT ARRIVES TO PACU SLEEPING, AWAKENS WITH VERBAL STIMULI, VERY DROWSY, BACK TO SLEEP. RESP EVEN AND UNLABORED, ENDO STAFF REPORTS PERIODS OF APNEA DURING PROCEDURE, PATIENT ON MASK AT 6 LITERS. MASK TURNED OFF ON ARRIVAL TO PACU. ROOM AIR SATS 88-92%. NC AT 2 LITERS. ON. PATIENT PASSING GAS.
--- NOTE | 2018-06-11 10:47 | OR ---
[facility] [address] [place], [place] [address] Signed DATE OF OPERATION: 06/11/2018 SURGEON: Eb Roger MD PREOPERATIVE DIAGNOSES: 1. Screening. 2. Lipoma at 65 cm. 3. Internal hemorrhoids. POSTOPERATIVE DIAGNOSES: 1. Small lipoma at 65 cm (1-2 cm). 2. Minimal sigmoid diverticulosis. 3. Minimal internal hemorrhoids. PROCEDURE: Colonoscopy without biopsy. ESTIMATED BLOOD LOSS: None. INDICATIONS: Misael is a 72-year-old gentleman, who came to us in 2008 at age 62. At that time, he had a small colonic lipoma at 65 cm along with minimal internal hemorrhoids. In the meanwhile, he has no lower GI complaints. There is no family history of colon cancer or polyps. He has no lower GI complaints. I had met with Misael in the office, I gave him a pamphlet on colonoscopy. We did review the nature of that test along with the risks including, but not limited to gas, bloating, crampy abdominal pain, bleeding, perforation, requiring surgery, and missed diagnosis. We also discussed the need for IV conscious sedation. He had expressed understanding and wished to proceed. PROCEDURE NOTE: Misael was taken into our endoscopy suite and placed in the left lateral decubitus position. He was given IV sedation with 7 mg of Versed and 125 mcg of fentanyl. A digital rectal exam was performed and this was unremarkable. His prostate gland is mildly enlarged and it is moderately indurated. I did not feel any dominant nodules. The adult colonoscope was then introduced and advanced all around into the cecum under direct visualization of camera without difficulty. We had taken pictures throughout for photodocumentation. We could easily see the appendiceal orifice and the ileocecal valve. The scope was slowly withdrawn. Again, we saw his small lipoma back at 65 cm. It is between 1 and 2 cm at most. Also, he does have some sigmoid diverticulosis on Electronically Signed By: EB ROGER MD 06/11/18 1047 PATIENT NAME: MISAEL ARZOLA OPERATIVE REPORT DATE OF : 49 REPORT #: [id number] PHYSICIAN: EB ROGER MD PCP: EB BOWEN MD REPORT IS CONFIDENTIAL AND NOT TO BE RELEASED WITHOUT AUTHORIZATION [facility] [address] [place] [address] Signed this occasion. They were minimal to moderate in size, minimal number, and scattered about. The rectum itself was unremarkable. Upon retroflexion of scope, he has very minimal internal hemorrhoid tissue. After this, the gas was suctioned out and the colonoscope removed. Misael tolerated procedure quite well. RECOMMENDATIONS: Dane can follow up in 10 years for repeat colonoscopy so long his health holds up. Eb Roger MD ALB/HOWARDL /[id number] cc: MD Dr. Eb Ferrari Copies: BE ROGER MD, MARY ANN G ~ Electronically Signed By: EB ROGER MD 06/11/18 1047 PATIENT NAME: MISAEL ARZOLA OPERATIVE REPORT DATE OF : 49 REPORT #: [id number] PHYSICIAN: EB ROGER MD PCP: EB BOWEN MD REPORT IS CONFIDENTIAL AND NOT TO BE RELEASED WITHOUT AUTHORIZATION
== END 2018-06-11 08:40 | disposition home or self-care (01) ==
LOC: OPS 06:15 → DS 06:15 → OPS 06:16 → DS 07:30 → OPS 07:30
PROVIDERS: Colon & Rectal Surgery
PROC: 0DJD8ZZ Inspection of Lower Intestinal Tract, Via Natural or Artificial Opening Endoscopic (ICD-10-PCS; principal; 2018-06-11 07:30)
DX: Z12.11 Encounter for screening for malignant neoplasm of colon (principal); K57.30 Diverticulosis of large intestine without perforation or abscess without bleeding; K64.8 Other hemorrhoids; D17.5 Benign lipomatous neoplasm of intra-abdominal organs; I10 Essential (primary) hypertension; N40.0 Benign prostatic hyperplasia without lower urinary tract symptoms; E53.8 Deficiency of other specified B group vitamins; M19.90 Unspecified osteoarthritis, unspecified site; F41.9 Anxiety disorder, unspecified; M54.16 Radiculopathy, lumbar region; Z88.1 Allergy status to other antibiotic agents; Z79.899 Other long term (current) drug therapy
CPT/HCPCS: 99153; G0500; J2250; J3010; J7120

== ENCOUNTER 2020-04-18 23:41 | Emergency (ER) | payer MEDICARE ==
[~2020-04-18] VITALS: Ht 175.3 cm; Wt 111.1 kg
--- OUTSIDE RECORDS SUMMARY | 2020-04-18 23:44 | XMS ---
PreManage Notification: MISAEL ARZOLA Security Emergency Specialist Events No recent Security Events currently on file CRITERIA MET - ED - Positive COVID-19 Lab Result - [facility] C[facility] PROVIDERS There are no care providers on record at this time. Allison has no Care Guidelines for this patient. Care History Medical/Surgical 07/21/2017 [facility] - Patient stated he has a follow up appointment with Dr Arshad on Friday. Care Recommendation: This patient has had 5 or more Emergency Department visits in the last 12 months. Patient requires education on the scope and purpose of the ED as an acute care provider not a Primary Care Provider and should not be utilized for chronic conditions. If patient returns to ED please contact Community Health WorkerChristine at [phone]. These are guidelines and the provider should exercise clinical judgment when providing care. E.D. VISIT COUNT (12 MO.) 1 [facility] TOTAL 1 NOTE: Visits indicate total known visits. ED/UCC VISIT TRACKING (12 MO.) 04/18/2020 23:[address] [facility] [place] TYPE: Emergency COMPLAINT: - MULTIPLE COMPAINTS INPATIENT VISIT TRACKING (12 MO.) No inpatient visits to display in this time frame [email or web address]
--- NOTE | 2020-04-19 07:38 | EKG ---
[facility] [address] [facility] [place], [place] [address] Signed Sinus rhythm with premature atrial complexes Left axis deviation Abnormal ECG No previous ECGs available Confirmed by JENELLE OWEN MD ([id number]) on 04/19/2020 7:38:08 AM Electronically Signed By: JENELLE OWEN MD 04/19/20 0738 PATIENT NAME: MISAEL ARZOLA Electrocardiogram DATE OF : 49 PHYSICIAN: JENELLE OWEN MD REPORT #: [id number] REPORT IS CONFIDENTIAL AND NOT TO BE RELEASED WITHOUT AUTHORIZATION
== END 2020-04-19 04:23 | disposition home or self-care (01) ==
LOC: ED 23:41
DX: U07.1 COVID-19 (principal); J12.82 Pneumonia due to coronavirus disease 2019; I10 Essential (primary) hypertension; Z87.891 Personal history of nicotine dependence; Z88.8 Allergy status to other drugs, medicaments and biological substances; Z79.899 Other long term (current) drug therapy
CPT/HCPCS: 71045; 80053; 84484; 85025; 85379; 93005; 93010; 99285-25; J7050; M0239

== ENCOUNTER 2020-09-22 09:55 | Emergency (ER) | payer MEDICARE, OTHER ==
[~2020-09-22] VITALS: Ht 175.3 cm; Wt 111.1 kg
[2020-09-22] MEDS ORDERED: DILTIAZEM 24HR120 MG PO (13:54)
--- NOTE | 2020-09-23 14:06 | EKG ---
[facility] [address] [facility] [place], [place] [address] Signed Sinus rhythm with marked sinus arrhythmia Left axis deviation Abnormal ECG No previous ECGs available Confirmed by MILY DONAHUE DO ([id number]) on 09/23/2020 2:06:34 PM Electronically Signed By: MILY DONAHUE DO 09/23/20 1406 PATIENT NAME: MISAEL ARZOLA Electrocardiogram DATE OF : 49 PHYSICIAN: MILY DONAHUE DO REPORT #: [id number] REPORT IS CONFIDENTIAL AND NOT TO BE RELEASED WITHOUT AUTHORIZATION
--- NOTE | 2020-09-23 14:06 | EKG ---
[facility] [address] [facility] [place], [place] [address] Signed Atrial flutter with 2:1 AV conduction Left axis deviation Pulmonary disease pattern Incomplete left bundle branch block Nonspecific ST abnormality Abnormal ECG No previous ECGs available Confirmed by MILY DONAHUE DO ([id number]) on 09/23/2020 2:06:29 PM Electronically Signed By: MILY DONAHUE DO 09/23/20 1406 PATIENT NAME: MISAEL ARZOLA Electrocardiogram DATE OF : 49 PHYSICIAN: MILY DONAHUE DO REPORT #: [id number] REPORT IS CONFIDENTIAL AND NOT TO BE RELEASED WITHOUT AUTHORIZATION
== END 2020-09-22 14:00 | disposition home or self-care (01) ==
LOC: ED 09:55
DX: I47.1 Supraventricular tachycardia (principal); I10 Essential (primary) hypertension; Z87.891 Personal history of nicotine dependence; Z88.1 Allergy status to other antibiotic agents; Z79.899 Other long term (current) drug therapy
CPT/HCPCS: 71045; 80053; 84484; 85025; 93005; 93010; 96374; 99285-25; J0153

== ENCOUNTER 2020-11-08 19:34 | Emergency (ER) | payer MEDICARE, OTHER ==
[~2020-11-08] VITALS: Ht 177.8 cm; Wt 113.4 kg
[~2020-11-08 19:34] MED LIST changes: +DILTIAZEM 24HR120 MG PO
--- NOTE | 2020-11-09 20:15 | EKG ---
[facility] [address] [place] [facility] [place] [address] Signed Atrial fibrillation with rapid ventricular response Left axis deviation Abnormal ECG When compared with ECG of 22-SEP-2020 10:05, Atrial fibrillation has replaced Sinus rhythm Vent. rate has increased BY 41 BPM Confirmed by MILY DONAHUE DO ([id number]) on 11/09/2020 8:14:58 PM Electronically Signed By: MILY DONAHUE DO 11/09/202014 PATIENT NAME: MISAEL ARZOLA Electrocardiogram DATE OF : 49 PHYSICIAN: MILY DONAHUE DO REPORT #: [id number] REPORT IS CONFIDENTIAL AND NOT TO BE RELEASED WITHOUT AUTHORIZATION
== END 2020-11-09 02:17 | disposition home or self-care (01) ==
LOC: ED 19:34
DX: L03.116 Cellulitis of left lower limb (principal); I48.91 Unspecified atrial fibrillation; Z20.822 Contact with and (suspected) exposure to COVID-19; I10 Essential (primary) hypertension; Z88.8 Allergy status to other drugs, medicaments and biological substances; Z79.899 Other long term (current) drug therapy
CPT/HCPCS: 71045; 80053; 81001; 84484; 85025; 93005; 93010; 96365; 96366; 99284-25; C9803; J3370; J7060; U0003

== ENCOUNTER 2022-03-11 11:01 | Inpatient (IN) | payer OTHER ==
[~2022-03-11] VITALS: Ht 177.8 cm; Wt 124.3 kg
[~2022-03-11 11:01] MED LIST changes: +BRIMONIDINE TART5 ML OU; +COZAAR50 MG PO; +DICLOFENAC SODI75 MG PO; +HYDROXYZINE HCL25 MG PO; +MELATONIN10 MG PO; -MELATONIN5 M2 PO; +OMEPRAZOLE20 MG PO; -OMEPRAZOLE40 MG PO; +OXYCODONE HCL5 MG PO; +TOPROL XL25 MG PO; +VITAMIN B-121000 MCG PO; -VITAMIN B122500 MCG PO; +VITAMIN D21250 MCG PO; -VITAMIN D50000 UNI1 PO; +XALATAN2.5 ML OU; +XARELTO10 MG PO
[2022-03-11] MEDS ORDERED: ONDANSETRON ODT8 MG PO (11:53)
[2022-03-12] MEDS ORDERED: ASPIRIN EC325 MG PO (14:19)
[2022-03-12] MEDS ORDERED: DILTIAZEM 24HR240 M1 PO (14:21)
[2022-03-12] MEDS ORDERED: REFRESH TEARS15 ML OU (14:29)
[2022-03-12] MEDS ORDERED: TRIAMCINOLONE A15 G3 TOP (15:57)
[2022-03-14] MEDS ORDERED: OMEPRAZOLE20 MG PO (15:54)
[2022-03-14] MEDS ORDERED: ONDANSETRON ODT8 MG PO (15:54)
[2022-03-14] MEDS ORDERED: SUCRALFATE1 GM PO (15:55)
== END 2022-03-14 17:00 | disposition home or self-care (01) | DRG 683 ==
LOC: ED 11:01 → MS 03-12 07:36
PROVIDERS: ADMIT Internal Medicine; ATTEND Internal Medicine
DX: N17.9 Acute kidney failure, unspecified (principal); K57.32 Diverticulitis of large intestine without perforation or abscess without bleeding; Z20.822 Contact with and (suspected) exposure to COVID-19; R11.2 Nausea with vomiting, unspecified; R19.7 Diarrhea, unspecified; K70.10 Alcoholic hepatitis without ascites; I10 Essential (primary) hypertension; E86.0 Dehydration; F41.9 Anxiety disorder, unspecified; I48.91 Unspecified atrial fibrillation; N40.0 Benign prostatic hyperplasia without lower urinary tract symptoms; E78.5 Hyperlipidemia, unspecified; H40.9 Unspecified glaucoma; Z96.642 Presence of left artificial hip joint; T39.395A Adverse effect of other nonsteroidal anti-inflammatory drugs [NSAID], initial encounter; K20.80 Other esophagitis without bleeding; K29.60 Other gastritis without bleeding; Z88.1 Allergy status to other antibiotic agents; Z79.82 Long term (current) use of aspirin; Z79.899 Other long term (current) drug therapy
CPT/HCPCS: 36415; 74176; 80048; 80053; 81003; 83690; 85025; 87502; 96374; 96375; 99285-25; A9270; C9803; J0744; J1170; J1790; J2405; J2550; J7030; J7121; U0003

== ENCOUNTER 2023-09-01 13:09 | Emergency (ER) | payer OTHER ==
[~2023-09-01] VITALS: Ht 177.8 cm; Wt 114.1 kg
[~2023-09-01 13:09] MED LIST changes: +ASPIRIN EC325 MG PO; +DILTIAZEM 24HR240 M1 PO; +ONDANSETRON ODT8 MG PO; +REFRESH TEARS15 ML OU; +SUCRALFATE1 GM PO; +TRIAMCINOLONE A15 G3 TOP
[2023-09-01 14:58] LABS: BASOPHILS 0.2 % (0-2); EOSINOPHILS 4.8 % (0-6); HEMATOCRIT 47.3 % (35.0-50.0); HEMOGLOBIN 15.1 g/dL (12.0-18.0); LYMPHOCYTES 16.9 % (24-44); MCV 81.3 fl (81-99); MONOCYTES 12.7 % (0-12); NEUTROPHILS 65.4 % (39-80); PLATELET COUNT 313 K/uL (140-440); RBC 5.81 M/ul (4.3-5.7); RDW 17.4 (10.5-15.0)
[2023-09-01] MEDS ORDERED: ondansetron HCL 4 MG/2 ML VIAL IV ONE (15:00)
[2023-09-01] MEDS ORDERED: SODIUM CHLORIDE 0.9% 500 ML IV ONE (15:00)
[2023-09-01 15:18] LABS: ALBUMIN/GLOBULIN RATIO 1.25 (1.1-2.4); ANION GAP 16.4 (7-21); BILIRUBIN, TOTAL 0.4 ng/dL (0.2-1.0); BUN/CREATININE RATIO 17.33 (6.0-28.6); CREATININE, SERUM 1.5 mg/dL (0.70-1.30); MAGNESIUM 1.6 mg/dL (1.8-2.4); POTASSIUM 4.4 mmol/L (3.5-5.1); PROTEIN, TOTAL 7.2 g/dL (6.4-8.2)
[2023-09-01 16:24] LABS: BILIRUBIN, URINE NEGATIVE (negative); BLOOD/HGB, URINE NEGATIVE (Negative); KETONE, URINE NEGATIVE (Negative); LEUK ESTERASE, URINE NEGATIVE (negative); NITRITE, URINE NEGATIVE (negative); PH, URINE 5.5 (5-7)
[2023-09-01 17:36] VITALS: BP 112/83
== END 2023-09-01 17:47 | disposition home or self-care (01) ==
LOC: ED 13:09
PROVIDERS: Emergency Medicine
DX: K52.9 Noninfective gastroenteritis and colitis, unspecified (principal); I10 Essential (primary) hypertension; Z88.8 Allergy status to other drugs, medicaments and biological substances; Z79.899 Other long term (current) drug therapy; Z79.82 Long term (current) use of aspirin
CPT/HCPCS: 36415; 74177; 80053; 81003; 83735; 85025; J2405; J7040; Q9967